=== PATIENT | male | born 1950 | race Caucasian/White ===

== ENCOUNTER 2019-12-27 09:22 | Outpatient (CLI) | payer MEDICARE, OTHER, SELFPAY ==
[2019-12-27 10:04] LABS: Alanine Aminotransferase 29 U/L (4-50); Aspartate Amino Transferase 26 U/L (17-59); Cholesterol 190 mg/dL (0-200); HDL Direct 37 mg/dL; Triglycerides 290 mg/dL (<150)
[2019-12-27 10:15] LABS: LDL Cholesterol Direct 108 mg/dL
== END 2019-12-27 09:23 | disposition home or self-care (01) ==
LOC: ANHLAB 09:26
PROVIDERS: Visit Provider Internal Medicine Cardiovascular Disease
DX: E78.5 Hyperlipidemia, unspecified (principal)
CPT/HCPCS: 36415; 80061; 84450; 84460

== ENCOUNTER 2020-06-16 10:46 | Inpatient (IN) | payer MEDICARE, OTHER, SELFPAY ==
[2020-06-16] VITALS (17 sets, daily range): BP systolic 106–194; BP diastolic 48–100; PULSE 76–148; RESP 18–30; TEMP 35.8–36.7; O2SAT 96–100; BMI 45.0
--- NOTE | 2020-06-16 | ECHO_ITS ---
Patient Info Name: Pierre Blanco Age: 69 years : 1950 Gender: Male Ht: 68 in Wt: 296 lbs BSA: 2.61 m2 HR: 102 bpm BP: 123 / 78 mmHg Heart Rhythm: Tachycardia, Sinus Rhythm Technical Quality: Poor Exam Date: 06/16/2020 4:17 PM Exam Location: [facility] Patient Status: Inpatient Admit Date: 06/16/2020 Staff Ordering Physician: Danya Edmond PA-C Vp Biology: Aminata Ervin RDCS Attending Provider: Danya Edmond PA-C Referring Physician: Feli CAMPBELL; Exam Type: CA echo dop color flow w con Study Info Indications - chest pain PIERRE FAGAN Complete two-dimensional, color flow and Doppler transthoracic echocardiogram is performed with contrast to opacify the left ventricle and to improve the deliniation of the left ventricle endocardial borders. Contrast/Agitated Saline Contrast/Ag. Saline: Definity Amount: 1.00 ml Existing IV Access: Yes IV Access Condition: patent with no signs of infiltration Summary 1. The left ventricle is of normal size and thickness with hyperdynamic left ventricular systolic function and near cavity obliteration during systole. Ejection fraction is 75-80%. Calculated ejection fraction 71%. No focal wall motion abnormalities. Grade 1 diastolic dysfunction is present. 2. No significant valvular heart disease. 3. No pulmonary hypertension, estimated pulmonary arterial systolic pressure is 28 mmHg. 4. Left atrial chamber dimension is moderately enlarged. 5. There is a late peaking in mildly increased LVOT velocity of 2.5 m/sec, corresponding to an intraventricular gradient of 25 mm Hg; this may be due to the patient's hyperdynamic state although a degree of hypertrophic obstructive cardiomyopathy cannot be completely excluded (the septal thickness is not well visualized in this technically difficult study). 6. Sinus tachycardia. 7. Technically difficult study, definity echo contrast used. Left Ventricle Left ventricular chamber dimension is normal. Left ventricular systolic function is hyperdynamic, estimated at >70%. There is no increased left ventricular wall thickness. Left ventricular septal wall motion is normal. The left ventricular diastolic function is grade I diastolic dysfunction. Right Ventricle Right ventricular chamber dimension is normal. Right ventricular systolic function is normal. Left Atria Left atrial chamber dimension is moderately enlarged. Right Atria Right atrial chamber dimension is normal. Aortic Valve The aortic valve is trileaflet. There is mild aortic valve sclerosis. There is no aortic valve stenosis. There is no aortic valve regurgitation. Pulmonic Valve The pulmonic valve is normal. There is no pulmonic valve stenosis. There is no pulmonic regurgitation. Mitral Valve The mitral valve has calcified annulus. There is no mitral valve stenosis. There is no mitral valve regurgitation. Tricuspid Valve The tricuspid valve leaflets are normal. There is no significant tricuspid valve stenosis. There is trace tricuspid valve regurgitation. No pulmonary hypertension, estimated pulmonary arterial systolic pressure is 28 mmHg. Pericardium/Pleural The pericardium appears normal. There is no pericardial effusion. Inferior Vena Cava Normal inferior vena cava with >50% collapse upon inspiration consistent with Empty right atrial pressure, 10 mmHg. Aorta The aortic root size at the sinus of Valsalva is normal.
--- NOTE | ~2020-06-16 | CT_ITS ---
EXAMINATION: CTA chest PE protocol DATE: 06/16/2020 12:27 INDICATION: Left upper chest pain. TECHNIQUE: Computed tomography angiography (CTA) of the chest was performed with 100 mL Omnipaque-350 intravenous contrast timed to evaluate the pulmonary arteries. Coronal maximum intensity projection 3D-reconstructions were created by the technologist. Automated exposure control and iterative reconst ruction technique were employed. The dose-length product was 933.88 mGy-cm. COMPARISON: Chest 2 views 06/16/2020 FINDINGS: The lungs demonstrate mild atelectasis. A calcified left lung nodule and calcified left hil ar and mediastinal lymph nodes are consistent with old granulomatous disease. No pleural effusion. Th e heart size is normal. There are coronary artery calcifications. No pericardial effusion. There is n o pulmonary embolus. There is diffuse hepatic steatosis. There are old healed right rib fractures. IMPRESSION: 1. No pulmonary embolus. Reviewed, dictated and finalized at location A. RONMENTAL HEALTH INSPECTOR IMPRESSION: 1. No pulmonary embolus.
--- NOTE | ~2020-06-16 | XR_ITS ---
EXAMINATION: XR chest 2V DATE: 06/16/2020 11:36 INDICATION: Midsternal chest pain TECHNIQUE: PA and lateral views of the chest are obtained. COMPARISON: 02/05/2015 FINDINGS: The lungs are free of acute opacities. There is no pleural effusion or pneumothorax. The ca rdiomediastinal silhouette is normal. There is mild thoracic spondylosis. Again noted is focal kyphos is at T11-12 with interbody fusion. IMPRESSION: 1. No acute cardiopulmonary abnormality. Reviewed, dictated and finalized at location A. ONAL SHOPPER
--- NOTE | 2020-06-16 10:53 | ECG_ITS ---
Measurements Intervals [place] Rate: 120 P: 26 RI: 161 QRS: 72 QRSD: 88 T: 39 QT: 319 QTc: 452 Interpretive Statements SINUS TACHYCARDIA BASELINE ARTIFACT- I, III, AVR, AVL ABNORMAL ECG Electronically Signed On 06-16-2020 11:18:57 BAGMAN/WOMAN by Juan Manuel Flynn D.O.
[2020-06-16] MEDS: ASPIRIN 81 MG CHEWABLE TABLET 324 MG PO (11:10)
[2020-06-16 11:14] LABS: Basophils Percent Auto 0.1 % (0.2-1.2); Eosinophils Absolute Auto 0.1 K/mm3 (0-0.3); Eosinophils Percent Auto 1.4 % (0-4.4); Hematocrit 45.3 % (42.0-52.0); Hemoglobin 15.2 g/dL (14.0-18.0); Immature Granulocyte Absolute 0.02 K/mm3 (0.00-0.031); Immature Granulocyte Percent A 0.3 % (0-0.5); Lymphocytes Absolute Auto 2.32 K/mm3 (0.9-3.2); Lymphocytes Percent Auto 33.2 % (18.3-44.2); Mean Corpuscular HGB Conc 33.6 g/dl (32-36); Mean Corpuscular Hemoglobin 30.8 pg (26-34); Mean Corpuscular Volume 91.9 fl (80-100); Mean Platelet Volume 9.5 fl (7.4-10.4); Monocytes Absolute Auto 0.4 K/mm3 (0.1-0.6); Monocytes Percent Auto 6.2 % (2.6-8.5); Neutrophils Absolute Auto 4.1 K/mm3 (1.3-6.7); Neutrophils Percent Auto 58.8 % (45.5-73.1); Platelet Count Result 176 k/mm3 (150-375); Red Blood Count 4.93 M/mm3 (4.6-6.20); Red Cell Distribution Width 14.5 % (11.5-14.5)
[2020-06-16 11:25] LABS: Anion Gap 5 mmol/L (8-16); Blood Urea Nitrogen 21 mg/dL (9-20); Calcium 9.5 mg/dL (8.4-10.2); Carbon Dioxide 30 mmol/L (22-30); Chloride 103 mmol/L (98-107); Estimated CRCL calculation 131 ml/min; Estimated Glomerular Filt Rate > 60; Glucose 144 mg/dL (75-110); Potassium 4.2 mmol/L (3.4-5.0); Sodium 138 mmol/L (137-145)
--- NOTE | 2020-06-16 11:25 | ED.CHESTPAIN ---
HPI - Chest Pain General Chief Complaint: Chest Pain Stated Complaint: left shoulder, arm pain Time Seen by Provider: 06/16/20 10:50 Source: patient Mode of arrival: ambulatory Limitations: no limitations History of Present Illness HPI narrative: Patient is a 69-year-old male complaining of chest pain, left chest radiating to left upper extremity, 8 out of 10 earlier, currently at 1 out of 10, described as tightness, started yesterday. Patient denies any shortness of breath, abdominal pain, nausea, vomiting, diaphoresis, fever or chills. Related Data Allergies Allergy/AdvReac Type Severity Reaction Status Date / Time morphine Allergy Unknown vomiting Verified 06/16/20 10:59 Review of Systems Review of Systems: All systems reviewed & are unremarkable except as noted in HPI and below Constitutional: Constitutional: Denies body ache(s), Denies chills, Denies excessive sweating, Denies fatigue, Denies fever(s), Denies headache(s), Denies lethargy, Denies malaise, Denies weakness and Denies weight loss Eyes: Eyes: Denies blurry vision, Denies change in vision and Denies loss of vision ENT: Denies dizziness, Denies ear discharge, Denies headache(s), Denies lip swelling, Denies epistaxis, Denies nasal congestion, Denies neck pain, Denies throat swelling and Denies tongue swelling Cardiovascular: Cardiovascular: Denies diaphoresis, Denies rapid heart rate, Denies edema, Denies irregular heart rhythm, Denies lightheadedness, Denies palpitations, Denies dyspnea and Denies dyspnea on exertion Respiratory: Respiratory: Denies chest congestion, Denies cough, Denies hemoptysis, Denies dyspnea and Denies dyspnea on exertion Gastrointestinal: Gastrointestinal: Denies abdominal pain, Denies melena, Denies hematochezia, Denies diarrhea, Denies nausea, Denies vomiting and Denies hematemesis Musculoskeletal: Musculoskeletal: Denies abnormal gait, Denies deformity, Denies joint swelling, Denies limited range of motion, Denies neck pain and Denies numbness Neurologic: Denies Abnormal speech present, Denies abnormal gait, Denies confusion, Denies dizziness, Denies headache(s), Denies focal weakness, Denies loss of vision, Denies numbness, Denies Other visual disturbances, Denies Sensory deficit (Neuro) and Denies weakness Psychiatric: Psychiatric: Denies confusion, Denies depression, Denies auditory hallucinations, Denies homicidal ideation and Denies suicidal ideation Endocrine: Endocrine: Denies cold intolerance, Denies excessive sweating, Denies fatigue, Denies heat intolerance and Denies palpitations Hematologic/Lymphatic: Hematologic/Lymphatic: Denies easy bleeding and Denies easy bruising Allergic/Immunologic: Allergic/Immunologic: Denies lip swelling, Denies throat swelling and Denies tongue swelling Exam Const: General: cooperative, healthy appearing, comfortable, no acute distress, well developed, alert and awake; No confusion Orientation/consciousness: oriented to person, oriented to place, oriented to time, patient oriented x3 and No confusion Limitations: no limitations HENMT: Head: normal to inspection, normocephalic and atraumatic Ears: hearing grossly normal bilaterally, TM normal on the right and TM normal on the left General nose exam: Normal external nose present, Normal nares present and No nasal discharge present Face and sinus: normal facial exam Mouth: Yes Normal oral and palatal mucosa present, Yes lip normal, Yes tongue normal and Yes oropharynx normal Throat: posterior oropharynx normal, tonsils normal and uvula midline Eyes: General: appearance normal, both eyes and all related structures Pupils: Equal, round and reactive pupils present EOM: EOMs intact bilaterally Neck: Neck: normal visual inspection, full ROM, no lymphadenopathy and no meningeal signs Chest: Chest palpation & inspection: normal inspection of the chest Resp: Effort & Inspection: normal respiratory effort, able to speak in complete sentences, no respiratory
[2020-06-16 11:29] LABS: INR 0.9; Prothrombin Time 12.7 Seconds (11.1-14.7)
[2020-06-16 11:30] LABS: Partial Thromboplastin Time 29.4 SECONDS (22.3-36.8)
[2020-06-16 11:43] LABS: Troponin I 0.057 ng/mL (0.000-0.034)
[2020-06-16] MEDS: METOPROLOL TARTRATE INJ 5 MG/5 ML VIAL IV PUSH (11:43)
--- NOTE | 2020-06-16 12:02 | PC.NURSE ---
called lab to add on d-dimer - spoke with jazmin
[2020-06-16] MEDS: ENOXAPARIN 100 MG/ML SYRINGE SUB-Q (13:23)
[2020-06-16] MEDS: ENOXAPARIN 30 MG/0.3 ML SYRINGE SUB-Q (13:23)
--- NOTE | 2020-06-16 14:21 | ADMGEN ---
This patient, Pierre Blanco, was admitted to IMU Room 209-. Patient/family oriented to hospital policies and general routines including ID bracelet, bed and alarms, visiting hours, pain management, procedures, bathroom and other care routines, personal items, smoking policy, room service/diet, and visiting hours. Information on how to activate the Rapid Response Team has been discussed. Patient/Family are encouraged to report perceived risks to care and to ask questions if they do not understand what they are told or what they should do.
[2020-06-16] MEDS: LACTATED RINGERS 1,000 ML 125 ML IV CONT (14:40)
[2020-06-16 14:42] LABS: Troponin I 0.095 ng/mL (0.000-0.034)
--- NOTE | 2020-06-16 14:57 | PM.CNCAR ---
Assessment and Plan Assessment and plan (1) Non-ST elevation [place] (NSTEMI): Code(s): I21.4 - Non-ST elevation (NSTEMI) myocardial infarction Status: Acute Assessment and Plan: Probable ACS and non-STEMI, with chest and arm pain intermittently since yesterday and elevated troponins. On the other hand it could be that the hypertension and sinus tachycardia provoked myocardial ischemia and a troponin spill. EKG has not shown any ischemic changes. In any case, since he may have ACS, I recommend cardiac catheterization tomorrow. He did receive 1 dose of Lovenox. Would continue aspirin. If more chest discomfort than heparin drip. Continue p.o. metoprolol etc. Repeat EKG looking for ischemic changes. (2) Coronary artery disease: Code(s): I25.10 - Atherosclerotic heart disease of [place] coronary artery without angina pectoris Status: Acute Assessment and Plan: His had diffuse CAD on his last cardiac catheterization in 2014, and history of remote diagonal stent. (3) Essential hypertension: Code(s): I10 - Essential (primary) hypertension Status: Acute Assessment and Plan: Was running high this morning (4) Hyperlipidemia: Code(s): E78.5 - Hyperlipidemia, unspecified Status: Acute Assessment and Plan: Taking rosuvastatin Will check lipids (5) Sinus tachycardia: Code(s): R00.0 - Tachycardia, unspecified Status: Acute Assessment and Plan: Sinus tachycardia noted earlier today, improved, unsure if secondary to myocardial stress versus anxiety. History of Present Illness History of Present Illness Consult date/time: 06/16/20 14:57 Consult reason: chest pain Reason For Visit: NSTEMI Narrative: 06/16/2020 Mr. Pierre Blanco is a 69-year-old male whom we were asked to see at the request of the hospitalist for advice and opinion regarding his chest discomfort in consultation. Mr. leonidas hidalgo is usually followed by Dr. Lorenzana for CAD. He has a history of a diagonal stent placed elsewhere several years ago and some diffuse coronary disease, with last cardiac catheterization in 2014. His last stress test in 2016 showed no ischemia and he was last seen in December 2019, stable. He has some chronic FAGAN. Yesterday started having some pain in his left arm from the shoulder to his hand off and on associated with discomfort in left upper chest area which is ?just to hurt and ache.? It would wax and wane all day and he just did not feel good. He was able to sleep okay but this morning he was having worse pain in the left arm and left upper chest and his heart rate and blood pressure were elevated. The pain would last 2 minutes then fade away but never went away completely. There was no associated nausea vomiting or shortness of breath. He did not try any nitroglycerin. He came to the emergency room blood pressure of 194/100 and a pulse of 129. He was given some IV metoprolol and Lovenox and has been pain-free since. He has history of hypertension and hyperlipidemia. No bleeding problems our anticipated surgery. He has had several cardiac catheterizations Review of Systems Constitutional: Constitutional: Denies lethargy ENT: Denies epistaxis Cardiovascular: Cardiovascular: Reports chest pain, Denies pedal edema and Reports palpitations Respiratory: Respiratory: Reports cough (Chronic cough, nonproductive) and Reports dyspnea on exertion Gastrointestinal: Gastrointestinal: Denies abdominal pain and Denies hematochezia Genitourinary: Genitourinary: Denies hematuria Musculoskeletal: Musculoskeletal: Reports back pain Integumentary/Breasts: Skin/Breast: Denies rash Neurologic: Reports system reviewed and no additional complaints, except as docu
--- NOTE | 2020-06-16 15:06 | PM.IMHP ---
H&P: HPI History of Present Illness Date/Time: 06/16/20 15:06 Chief Complaint: Chest pain Narrative: Pierre Blanco is a 69 year old male with PMH significant for coronary artery disease s/p [place] [address] Riddle, hypertension, hyperlipidemia, recent and uncomplicated COVID-19 infection 04/06/20, and GERD who presented to the emergency department this morning via private vehicle for the evaluation of chest pain. Chest pain started gradually yesterday morning and was persistent throughout the day with episodes of discomfort rated 2/10 and lasting 5-10 minutes without complete resolution between episodes which he further described as an ebb and flow . Pain was not brought on with exertion as he notes he not was pretty inactive and sitting around yesterday. Pain was located at the left chest with radiation into the left arm. He describes it as just hurting with some intermittent sharp pains. He reported no radiation to the jaw or back and no pleuritic component. He did not take nitroglycerin because he was unsure if it was cardiac. He woke up this morning and the pain was sill present and worse at 4-5/10 with pulse reading of 138 and elevated BP reading which prompted him to proceed to the emergency department. He reports he did not have any palpitations. He denies associated shortness of breath, dizziness and lightheadedness. He denies PND and orthopnea. He reports that he holds water and tends to have a bit of lower extremity edema but does not feel this is any worse than usual. He notes chronic dyspnea on exertion with limited exercise tolerance, deconditioning, and weight gain which he attributes to his good appetite. He notes a chronic, dry cough and follows with pulmonology. He denies abdominal pain, nausea, and vomiting. Initial workup in the emergency department included EKG with sinus tachycardia, QTC [address]/T changes, D-Dimer 0.7, troponin 0.057 at 1 hr and 0.095 at 3 hr, CXR unremarkable and chest CTA without pulmonary embolism, CBC unremarkable. Review of Systems Review of Systems: Narrative: Constitutional: Denies fever, chills, fatigue, and appetite change. Reports weight gain which he attributes to diet. Eyes: Reports hx of cataract removal and wears corrective lenses. Denies vision change. No additional eye complaints. ENT: Denies change in hearing, nasal congestion, dysphagia, odynophagia, and sore throat. Cardiovascular: As above. Respiratory: As above. Denies hemoptysis. Gastrointestinal: Denies abdominal pain, nausea, and vomiting. Denies melena and hematochezia. Genitourinary: Denies dysuria, frequency, urgency, and hesitancy. Denies hematuria. Musculoskeletal: Reports chronic low back pain. Skin: Denies lesions and wounds. Neurologic: Denies focal weakness, paresthesias, confusion, and speech change. Denies headaches. Psychiatric: Denies mood change. Hematologic: Denies easy bruising and bleeding. All systems reviewed & are unremarkable except as noted in HPI and below PMFSH Past Medical History Medical History (Updated 06/16/20 @ 16:24 by Danya Edmond PA-C) Coronary artery disease History of diagonal stent [place] [address] Riddle Essential hypertension GERD (gastroesophageal reflux disease) Gout Hyperlipidemia SHELBIE (obstructive sleep apnea) Surgical History Surgical History (Updated 06/16/20 @ 15:49 by Danya Edmond PA-C) Hx of tonsillectomy Plantar fasciitis Previous back surgery Family History Family History (Updated 06/16/20 @ 15:50 by Danya Edmond PA-C) Father Heart disease of 3rd heart attack age 56 Mother Heart disease History of valve replacement Cerebral hemorrhage Sounds like she might of had an intracranial hemorrhage, related to warfarin? Grandparent Acute myocardial infarction Grandparent Diabetes mellitus Grandparent Acute myocardial infarction Social History Social History (Updated
--- NOTE | 2020-06-16 15:54 | ECG_ITS ---
Measurements Intervals [place] Rate: 104 P: 14 [place]: 155 QRS: 61 QRSD: 87 T: 25 QT: 355 QTc: 469 Interpretive Statements SINUS TACHYCARDIA BORDERLINE ST ABNORMALITY- ANTEROLATERAL LEADS BASELINE ARTIFACT- I, III BORDERLINE ECG Electronically Signed On 06-16-2020 16:27:26 LIVESTOCK NUTRITIONIST by Juan Manuel Flynn D.O.
[2020-06-16] MEDS: PERFLUTREN LIPID MICROSPHERES 1.5 ML VIAL DILUTED TO 10 ML TOTAL VOLUME IV PUSH (16:34)
[2020-06-16] MEDS: ROSUVASTATIN 10 MG TABLET 40 MG PO (20:05)
[2020-06-16] MEDS: METOPROLOL TARTRATE 50 MG TAB 100 MG PO (20:06)
[2020-06-16] MEDS: PANTOPRAZOLE 40 MG TABLET PO (20:06)
[2020-06-16] MEDS: MONTELUKAST SODIUM 10 MG TABLET PO (20:06)
[2020-06-16 20:34] LABS: Troponin I 0.275 ng/mL (0.000-0.034)
[2020-06-17] VITALS (33 sets, daily range): BP systolic 97–158; BP diastolic 42–87; PULSE 64–116; RESP 10–20; TEMP 36.1–36.7; O2SAT 93–98
[2020-06-17 05:25] LABS: Basophils Percent Auto 0.3 % (0.2-1.2); Eosinophils Absolute Auto 0.1 K/mm3 (0-0.3); Eosinophils Percent Auto 2.2 % (0-4.4); Hematocrit 40.8 % (42.0-52.0); Hemoglobin 13.6 g/dL (14.0-18.0); Immature Granulocyte Absolute 0.01 K/mm3 (0.00-0.031); Immature Granulocyte Percent A 0.2 % (0-0.5); Lymphocytes Absolute Auto 2.56 K/mm3 (0.9-3.2); Lymphocytes Percent Auto 39.9 % (18.3-44.2); Mean Corpuscular HGB Conc 33.3 g/dl (32-36); Mean Corpuscular Hemoglobin 30.4 pg (26-34); Mean Corpuscular Volume 91.3 fl (80-100); Mean Platelet Volume 10.3 fl (7.4-10.4); Monocytes Absolute Auto 0.5 K/mm3 (0.1-0.6); Monocytes Percent Auto 7.8 % (2.6-8.5); Neutrophils Absolute Auto 3.2 K/mm3 (1.3-6.7); Neutrophils Percent Auto 49.6 % (45.5-73.1); Platelet Count Result 169 k/mm3 (150-375); Red Blood Count 4.47 M/mm3 (4.6-6.20); Red Cell Distribution Width 14.5 % (11.5-14.5); White Blood Count 6.4 K/mm3 (4.5-10.0)
[2020-06-17 05:41] LABS: Alanine Aminotransferase 33 U/L (4-50); Albumin Level 3.8 g/dL (3.5-5.1); Alkaline Phosphatase 61 U/L (38-126); Anion Gap 5 mmol/L (8-16); Aspartate Amino Transferase 33 U/L (17-59); Bilirubin,Total 0.7 mg/dL (0.2-1.3); Blood Urea Nitrogen 21 mg/dL (9-20); Calcium 8.7 mg/dL (8.4-10.2); Carbon Dioxide 28 mmol/L (22-30); Chloride 104 mmol/L (98-107); Cholesterol 156 mg/dL (0-200); Estimated CRCL calculation 90 ml/min; Estimated Glomerular Filt Rate > 60; Glucose 102 mg/dL (75-110); Magnesium 1.7 mg/dL (1.6-2.3); Sodium 137 mmol/L (137-145)
[2020-06-17 05:48] LABS: Potassium 4.1 mmol/L (3.4-5.0)
[2020-06-17] MEDS: HYDROcodone/acetaminophen (*CRX) 7.5-325 MG TABLET 1 TAB PO ×2 (06:20→12:23)
--- NOTE | 2020-06-17 06:32 | WPDMODSED ---
Moderate Sedation Note-Pt Data Patient Data Diagnosis: chest pain, suspected acute coronary syndrome Present Complaint: intermittent episodes of left chest shoulder and arm pain Procedure to be performed/Plan: left heart catheterization Allergies Allergy/AdvReac Type Severity Reaction Status Date / Time morphine Allergy Mild vomiting Verified 06/16/20 14:02 Home Medications Medication Instructions Recorded Confirmed Type albuterol sulfate [ProAir See Rx Instructions .ROUTE 06/16/20 06/16/20 History RespiClick] .COMPLEX PRN allopurinol 300 mg PO DAILY 06/16/20 06/16/20 History apple cider vinegar 500 mg PO DAILY 06/16/20 06/16/20 History ascorbate sodium (vitamin C) 1,000 mg PO DAILY 06/16/20 06/16/20 History aspirin [Aspir-81] 81 mg PO Q12H 06/16/20 06/16/20 History benzonatate 100 mg PO TID PRN 06/16/20 06/16/20 History fluticasone propionate [Flonase] 2 spray INTRANASAL BID PRN 06/16/20 06/16/20 History furosemide 20 mg PO DAILY 06/16/20 06/16/20 History isosorbide mononitrate 60 mg PO DAILY 06/16/20 06/16/20 History losartan 50 mg PO Q12H 06/16/20 06/16/20 History metoprolol tartrate 100 mg PO Q12H 06/16/20 06/16/20 History montelukast 10 mg PO HS 06/16/20 06/16/20 History zmtmbzru-npc-unhvc-vit K-lycop 1 tablet PO DAILY 06/16/20 06/16/20 History [Men's Multivitamin] nitroglycerin See Rx Instructions .ROUTE .COMPLEX 06/16/20 06/16/20 History omega-3 fatty acids-vitamin E 1 cap PO DAILY 06/16/20 06/16/20 History [Fish Oil] omeprazole 20 mg PO HS 06/16/20 06/16/20 History rosuvastatin 40 mg PO HS 06/16/20 06/16/20 History Current Medications: Active Medications Hydrocodone Bitart/Acetaminophen (Hydrocodone/Acetaminophen (*Crx) 7.5-325 Mg Tablet) 1 tab PO Q6H PRN PRN Reason: Pain Rated 7-10 Last Admin: 06/17/20 06:20 Dose: 1 tab Documented by: Albuterol (Albuterol Sulfate Neb 2.5 Mg/0.5 Ml Inh) 2.5 mg INHALATION Q4HRT PRN PRN Reason: Shortness Of Breath Allopurinol (Allopurinol 300 Mg Tablet) 300 mg PO DAILY [facility] Aspirin (Aspirin 81 Mg Chewable Tablet) 81 mg PO DAILY@0800 [facility] Fluticasone Propionate (Fluticasone Propionate 0.05% Na Spr 16 Gm Btl (*Bkc)) 2 spray NASAL BID PRN PRN Reason: Congestion Furosemide (Furosemide 20 Mg Tablet) 20 mg PO DAILY [facility] Sodium Chloride (Normal Saline Iv) 500 mls @ 100 mls/hr IV CONT .Q5H [facility] Isosorbide Mononitrate (Isosorbide Mononitrate 60 Mg Tab.Er.24h) 60 mg PO DAILY [facility] Losartan Potassium (Losartan Potassium 50 Mg Tablet) 50 mg PO Q12HR [facility] Metoprolol Tartrate (Metoprolol Tartrate 50 Mg Tab) 100 mg PO Q12HR [facility] Last Admin: 06/16/20 20:06 Dose: 100 mg Documented by: Montelukast Sodium (Montelukast Sodium 10 Mg Tablet) 10 mg PO [facility] Last Admin: 06/16/20 20:06 Dose: 10 mg Documented by: Nitroglycerin (Nitroglycerin Sl 0.4 Mg Tablet) 0.4 mg SUBLINGUAL Q5MIN PRN PRN Reason: Chest Pain Pantoprazole Sodium (Pantoprazole 40 Mg Tablet) 40 mg PO [facility] Last Admin: 06/16/20 20:06 Dose: 40 mg Documented by: Rosuvastatin Calcium (Rosuvastatin 10 Mg Tablet) 40 mg PO [facility] Last Admin: 06/16/20 20:05 Dose: 40 mg Documented by: Sedation/Anesthesia: No previous sedation/anesthesia problems (including family history). [facility] Past Medical History Medical History (Updated 06/16/20 @ 16:24 by Danya Edmond PA-C) Coronary artery disease History of diagonal stent [place] [address] Riddle Essential hypertension GERD (gastroesophageal reflux disease) Gout Hyperlipidemia SHELBIE (obstructive sleep apnea) Surgical History Surgical History (Updated 06/16/20 @ 15:49 by Danya Edmond PA-C) Hx of tonsillectomy Plantar fasciitis Previous back surgery Family History Family History (Updated 06/16/20 @ 15:50 by Danya Edmond PAChip) Father Heart disease of 3rd heart attack age 56 Mother Heart disease History of valve replacement Cerebral hemorrhage Sounds like she might of had an intracr
--- NOTE | 2020-06-17 07:34 | ECG_ITS ---
Measurements Intervals [place] Rate: 67 P: 38 [place]: 176 QRS: 64 QRSD: 85 T: 64 QT: 438 QTc: 465 Interpretive Statements SINUS RHYTHM NORMAL ECG Electronically Signed On 06-17-2020 11:08:05 MARKET RISK MANAGER by Juan Manuel Flynn D.O.
--- NOTE | 2020-06-17 07:39 | WPDCARDPROC ---
Cardiac Cath Procedure Note Date of procedure:: 06/17/20 Performing physician:: Sonu Mclean MD Indication:: coronary artery disease with previous PCI to diagonal acute coronary syndrome Brief clinical history:: this is a 69-year-old man who has coronary artery disease and is morbidly obese. He presents to the hospital with intermittent chest pain and modest troponin elevation compatible with acute coronary syndrome. Electrocardiogram does not show any significant changes. In 2006 he received a stent to the diagonal branch of his LAD. In this setting a follow-up angiogram has been recommended. Procedure Procedure performed:: Left ventriculogram coronary angiogram PCI with drug-eluting stent to circumflex/OM 1 Sedation/Medication given:: fentanyl 50 mg Versed 2 mg case start time 7:03 a.m. case end time 7:33 a.m. sedation provided by Toshia Elizabeth RN, trained observer Access site:: right femoral artery Estimated blood loss:: 15-20 cc Procedure note:: patient was brought to the cardiac catheterization in the postabsorptive state the right femoral triangle was prepped and draped in the usual fashion. Anesthesia was provided with 1% lidocaine and using the modified Seldinger technique the right femoral artery was punctured and a 5 [place] vascular sheath was placed. After this I advanced a 5 [place] angled pigtail catheter to left ventricle were left-sided hemodynamics were demonstrated and left ventriculogram was injected in the ROBERTSON projection. After this the 5 [place] FL4 catheter was used to engage inject the left coronary artery and then a 5 [place] JR4 catheter was used to engage inject the right coronary artery. Following this the cineangiograms were reviewed and PCI of the circumflex/ OM1 was recommended and carried out as detailed below. Prior to PCI 5 [place] sheath was changed over a guidewire for a 6 [place] device. The patient was systemically anticoagulated with apixaban for this intervention he received 600 mg of clopidogrel as well as 3-5 mg of aspirin prior to PCI as well. Following the procedure the sheath was sutured into position patient was taken to the holding area for recovery and sheath removal. 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 Findings:: Hemodynamics: Central aortic pressure is 124/62 left ventricle 124/12 end-diastolic pressure 18 there is no systolic gradient on pullback across the aortic valve. Left ventricle: The LV is normal in size and exhibits concentric hypertrophy contractility is nicely preserved in all segments the global ejection fraction I would visually estimated to be 60-65%. The left main coronary artery is short but nicely patent the LAD is a moderate caliber artery extending down to around the apex the visible stent material in the diagonal branch of the LAD is easily seen and is widely patent. There is some stenosis in the LAD immediately after the diagonal branch takes its origin it is eccentric and represents probably 50-60% narrowing. Angiographically it is unchanged in comparison to 2016 circumflex is a moderate to large caliber artery giving rise to a very large 1st OM branch and then a small diffusely diseased posterior branch leading into a small 2nd OM. There is a high-grade stenosis of 90% in the large 1st OM branch with mild disease leading into this for branch in the trunk of the circumflex and for a significant distance distal to the high-grade stenosis. The distal AV groove portion leading into the distal OM branch is a diffusely diseased and has distal 80% stenosis. This is angiographically not significantly containing compared to 2016 but the high-grade lesion described above is new. Right coronary artery is a large caliber vessel and dominant to the posterior circulation there is minimal luminal irregularities noted in the RCA but no significant disease intervention: The left coronary ezio
[2020-06-17] MEDS: SODIUM CHLORIDE 0.9% IV 1,000 ML 125 ML IV CONT (13:35)
--- NOTE | 2020-06-17 14:02 | PM.IMPN ---
Progress Note: A&P Assessment and Plan (1) Non-ST elevation [place] (NSTEMI): Code(s): I21.4 - Non-ST elevation (NSTEMI) myocardial infarction Status: Acute Assessment and Plan: Clinical presentation consistent with NSTEMI given symptoms concerning for ACS, elevated troponin, and no significant ST change on EKG. He underwent cardiac catheterization on 06/17/[address] Mclean which showed high-grade stenosis of the circumflex s/p PCI with SASKIA to the 1st OM branch of the circumflex, diffuse disease in the distal circumflex and mid LAD - unchanged from 2015, and patency of the diagonal stent from 2006. Cardiology is following and input is greatly appreciated Continue ASA and plavix Continue metoprolol Continue nitroglycerin as needed (2) Coronary artery disease: Code(s): I25.10 - Atherosclerotic heart disease of [place] coronary artery without angina pectoris Status: Chronic Assessment and Plan: With hx of diagonal stent [place] [address] Riddle and now s/p SASKIA to the 1st OM branch of the circumflex by Dr. Mclean 06/17/20. Cardiology is following and input is greatly appreciated. Continue ASA and plavix Continue metoprolol Continue nitroglycerin as needed Continue rosuvastatin Continue isosorbide mononitrate (3) Essential hypertension: Code(s): I10 - Essential (primary) hypertension Status: Acute Assessment and Plan: The patient noted BP elevation on admission. BP has improved significantly with most recent BP of 119/68. Continue losartan Continue metoprolol Continue to monitor. Appreciate cardiology input. (4) Hyperlipidemia: Code(s): E78.5 - Hyperlipidemia, unspecified Status: Acute Assessment and Plan: LDL 108 and HDL 37 on labs 12/24. LFTs are normal. Continue rosuvastatin 40mg PO QD (5) SHELBIE (obstructive sleep apnea): Code(s): G47.33 - Obstructive sleep apnea (adult) (pediatric) Status: Chronic Assessment and Plan: Continue CPAP titrated to home settings while inpatient. (6) Gout: Code(s): M10.9 - Gout, unspecified Status: Chronic Assessment and Plan: Chronic with no acute issues. Continue allopurinol (7) Sinus tachycardia: Code(s): R00.0 - Tachycardia, unspecified Status: Acute Assessment and Plan: Noted on EKG on arrival. TSH and electrolytes are normal. HR has improved significantly and is in the 60-70s. Continue metoprolol (8) Elevated glucose level: Code(s): R73.09 - Other abnormal glucose Status: Acute Assessment and Plan: Glucose is 144. Hemoglobin A1c is pending. (9) Dyspnea on exertion: Code(s): R06.00 - Dyspnea, unspecified Status: Chronic Assessment and Plan: Chronic and likely secondary to deconditioning and obesity. He appears euvolemic. Echocardiogram performed 06/16/20 demonstrated hyperdynamic left ventricular systolic function with EF 75-80% with no focal wall motion abnormalities and grade I diastolic dysfunction. He had no significant valvular dysfunction. He did have possible hypertrophic obstructive cardiomyopathy given echo findings. (10) Hypertrophic cardiomyopathy: Code(s): I42.2 - Other hypertrophic cardiomyopathy Status: Acute Assessment and Plan: Echocardiogram demonstrated late peaking in mildly increased LVOT velocity of 2.5m/sec corresponding to intraventricular gradient of 25 mmHg which could be due to hypertrophic obstructive cardiomyopathy vs hyperdynamic state. Cardiology is following with management deferred to cardiology Continue metoprolol tartrate Subjective Date/time seen: 06/17/20 14:02 Mr. Blanco is a 69 y.o. male with PMH significant for coronary artery disease s/p [place] [address] Riddle, hypertension, hyperlipidemia, recent and uncomplicated COVID-19 infection 04/06/20, and GERD who is seen in
[2020-06-17 15:23] LABS: Hemoglobin A1C 5.9 % (<5.7)
[2020-06-17] MEDS: METOPROLOL TARTRATE 50 MG TAB 100 MG PO (20:35)
[2020-06-17] MEDS: ROSUVASTATIN 10 MG TABLET 40 MG PO (20:36)
[2020-06-17] MEDS: PANTOPRAZOLE 40 MG TABLET PO (20:36)
[2020-06-17] MEDS: MONTELUKAST SODIUM 10 MG TABLET PO (20:36)
[2020-06-18] VITALS (11 sets, daily range): BP systolic 100–122; BP diastolic 49–64; PULSE 62–79; RESP 16–18; TEMP 36.1–36.6; O2SAT 95–100
--- NOTE | 2020-06-18 05:11 | ECG_ITS ---
Measurements Intervals [place] Rate: 61 P: 19 DC: 175 QRS: 55 QRSD: 86 T: 44 QT: 435 QTc: 439 Interpretive Statements SINUS RHYTHM NORMAL ECG Electronically Signed On 06-18-2020 10:10:18 [employer] by Juan Manuel Flynn D.O.
[2020-06-18 05:19] LABS: Basophils Percent Auto 0.2 % (0.2-1.2); Eosinophils Absolute Auto 0.1 K/mm3 (0-0.3); Eosinophils Percent Auto 1.9 % (0-4.4); Hematocrit 39.7 % (42.0-52.0); Hemoglobin 13.1 g/dL (14.0-18.0); Immature Granulocyte Absolute 0.02 K/mm3 (0.00-0.031); Immature Granulocyte Percent A 0.3 % (0-0.5); Lymphocytes Absolute Auto 1.61 K/mm3 (0.9-3.2); Lymphocytes Percent Auto 25.4 % (18.3-44.2); Mean Corpuscular Hemoglobin 30.4 pg (26-34); Mean Corpuscular Volume 92.1 fl (80-100); Mean Platelet Volume 9.9 fl (7.4-10.4); Monocytes Absolute Auto 0.5 K/mm3 (0.1-0.6); Monocytes Percent Auto 7.1 % (2.6-8.5); Neutrophils Absolute Auto 4.1 K/mm3 (1.3-6.7); Neutrophils Percent Auto 65.1 % (45.5-73.1); Platelet Count Result 133 k/mm3 (150-375); Red Blood Count 4.31 M/mm3 (4.6-6.20); Red Cell Distribution Width 14.2 % (11.5-14.5); White Blood Count 6.3 K/mm3 (4.5-10.0)
[2020-06-18 05:34] LABS: Anion Gap 3 mmol/L (8-16); Blood Urea Nitrogen 17 mg/dL (9-20); Calcium 8.3 mg/dL (8.4-10.2); Carbon Dioxide 32 mmol/L (22-30); Chloride 104 mmol/L (98-107); Estimated CRCL calculation 103 ml/min; Estimated Glomerular Filt Rate > 60; Glucose 105 mg/dL (75-110); Magnesium 1.8 mg/dL (1.6-2.3); Potassium 3.9 mmol/L (3.4-5.0); Sodium 139 mmol/L (137-145)
[2020-06-18] MEDS: CLOPIDOGREL BISULFATE 75 MG TABLET PO (08:31)
[2020-06-18] MEDS: FUROSEMIDE 20 MG TABLET PO (08:31)
[2020-06-18] MEDS: METOPROLOL TARTRATE 50 MG TAB 100 MG PO (08:31)
[2020-06-18] MEDS: allopurinoL 300 MG TABLET PO (08:31)
[2020-06-18] MEDS: ASPIRIN 81 MG CHEWABLE TABLET PO (08:31)
--- NOTE | 2020-06-18 11:12 | PM.PNCARD ---
Progress Note: A&P Additional Plan 69-year-old man with: Acute coronary syndrome treated effectively with drug-eluting stent to the target lesion in the mid circumflex as described above. He does have some other diffusely diseased vessels which angiographically look no different than in 2016. Patient appears to be a good candidate for discharge today. Follow-up with Dr. Lorenzana in our office is already scheduled. Sonu Mclean MD [facility] Subjective Date/time seen: Date of service: 06/18/20 11:12 Interval history: Follow-up visit in this 69-year-old man with: Coronary artery disease, remote stenting of the diagonal branch of the LAD presenting with accelerating angina/acute coronary syndrome. Found to have a new high-grade stenosis in the mid circumflex into OM1 yesterday and underwent successful revascularization with another drug-eluting stent as detailed in the operative note. Patient is asymptomatic this morning seated in the chair he has been up ambulating with no symptoms appears to be a good candidate for discharge. Discussion with the patient at some length about the importance of dual anti-platelet therapy and adherence to that. Exam Const: General: comfortable and no acute distress Other: Morbidly obese gentleman seated in the chair in no distress of any kind HENMT: Mouth: Yes moist mucous membranes Eyes: Sclera: sclerae normal Pupils: Equal, round and reactive pupils present Neck: Neck: supple and no JVD Other: Difficult to assess venous distention given his body habitus Resp: Effort & Inspection: normal respiratory effort Auscultation: clear to auscultation bilaterally Other: Breath sounds distant but otherwise clear Cardio: Rate: regular rate Rhythm: regular rhythm Other: PMI cannot be palpated no cardiac murmur GI: GI Palp: Yes Soft to palpation Auscultation: normal bowel sounds Skin: General skin exam: normal color Neuro: Cognition (Neuro): normal cognition Extrem: General: normal to inspection Objective Data Vital Signs Vital Signs: Vital Signs - 24 hr 06/17/20 11:25 06/17/20 11:40 06/17/20 11:55 Temperature Pulse Rate 70 67 66 Respiratory Rate 20 16 19 Blood Pressure 108/61 99/66 L 133/60 Pulse Oximetry 94 93 95 06/17/20 12:10 06/17/20 12:40 06/17/20 14:00 Temperature 36.6 C Pulse Rate 64 75 84 Respiratory Rate 20 20 Blood Pressure 119/68 130/74 Pulse Oximetry 97 96 06/17/20 15:10 06/17/20 16:00 06/17/20 16:10 Temperature 36.6 C 36.6 C Pulse Rate 80 79 77 Respiratory Rate 18 20 18 Blood Pressure 112/68 121/58 L Pulse Oximetry 95 97 97 06/17/20 16:39 06/17/20 17:10 06/17/20 18:00 Temperature 36.6 C 36.6 C Pulse Rate 79 100 116 H Respiratory Rate 20 18 Blood Pressure 121/58 L 158/87 H Pulse Oximetry 97 98 06/17/20 20:00 06/17/20 20:09 06/17/20 20:35 Temperature 36.1 C L Pulse Rate 90 101 H 94 Respiratory Rate 18 Blood Pressure 141/83 H Pulse Oximetry 95 06/17/20 22:00 06/18/20 00:00 06/18/20 02:00 Temperature 36.2 C L Pulse Rate 72 72 72 Respiratory Rate 18 Blood Pressure 120/51 L Pulse Oximetry 95 06/18/20 03:50 06/18/20 04:00 06/18/20 05:19 Temperature 36.1 C L Pulse Rate 76 79 79 Respiratory Rate 18 18 Blood Pressure 122/53 L 120/54 L Pulse Oximetry 95 96 06/18/20 06:00 06/18/20 08:00 06/18/20 08:11 Temperature 36.5 C Pulse Rate 75 72 79 Respiratory Rate 16 Blood Pressure 100/49 L Pulse Oximetry 100 06/18/20 10:00 Temperature Pulse Rate 64 Respiratory Rate Blood Pressure Pulse Oximetry Intake/Output Intake/Output: Intake & Output 06/15/20 06/16/20 06/17/20 06/18/20 23:59 23:59 23:59 23:59 Intake Total 785.6 2220 880 Output Total 400 325 400 Balance 385.6 1895 480 Meds/Results Medications: Active Medications Generic Name Dose Route Start Last Admin Trade Name Freq PRN Reason Stop Dose Admin Hydrocodone Bitart/Acetaminophen 1 tab 06/16/20 1
--- NOTE | 2020-06-18 13:16 | PM.DS ---
DS: Admitting Diagnosis Admitting Diagnosis Admitting Diagnosis: NSTEMI DS: Discharge Diagnosis Discharge Diagnosis (1) Non-ST elevation [place] (NSTEMI): Code(s): I21.4 - Non-ST elevation (NSTEMI) myocardial infarction Status: Acute Assessment and Plan: Discharge Summary (Date of service 06/18/20): Mr. Blanco is a 69 year old male with PMH significant for coronary artery disease s/[place] [address] Riddle, hypertension, hyperlipidemia, recent and uncomplicated COVID-19 infection 04/06/20, and GERD who presented to the emergency department this morning via private vehicle on 06/16/20 for the evaluation of chest pain. Chest pain started gradually 1 day prior to arrival and was rather constant, with brief periods of mild relief, and located at the left chest with radiation into the left arm. He described the pain as just hurting and aching . He did not take nitroglycerin prior to presentation to the ED because he was unsure if it was cardiac. He woke up the following morning and the pain was sill present and worse at 4-5/10 with associated tachycardia and hypertension, prompting him to seek evaluation in the ED. Initial workup in the emergency department included EKG with sinus tachycardia, QTC [address]/T changes, D-Dimer 0.7, troponin 0.057 at 1 hr and 0.095 at 3 hr, CXR unremarkable and chest CTA without pulmonary embolism, CBC unremarkable. The ER provider consulted cardiology and he was treated with ASA, nitroglycerin, and therapeutic lovenox for NSTEMI and admitted to the hospitalist service with cardiology consultation. He underwent cardiac catheterization on 06/17/[address] Mclean which showed high-grade stenosis of the circumflex, disease in the distal circumflex and mid LAD - unchanged from 2015, and patency of the diagonal stent from 2006. Percutaneous coronary intervention was performed with drug eluting stent to the mid circumflex. Plavix was initiated and ASA was continued as well as metoprolol. He had no further chest pain following intervention. He was evaluated by cardiology and he was felt stable for discharge. He will follow-up with Dr. Lorenzana as scheduled outpatient. He was discharged in hemodynamically stable condition on the afternoon of 06/18/20. Worrisome signs and symptoms which would warrant return to the emergency department were discussed and he verbalized understanding. (2) Coronary artery disease: Code(s): I25.10 - Atherosclerotic heart disease of [place] coronary artery without angina pectoris Status: Chronic Assessment and Plan: With hx of diagonal stent [place] [address] Riddle and now s/p SASKIA to the 1st OM branch of the circumflex by Dr. Mclean 06/17/20. ASA, plavix, metoprolol, rosuvastatin, and nitroglycerin as needed were continued at discharge. (3) Essential hypertension: Code(s): I10 - Essential (primary) hypertension Status: Acute Assessment and Plan: The patient noted BP elevation on admission. BP improved significantly with some soft readings so losartan was decreased to 50mg QD and imdur was discontinued per cardiology recommendations. He was advised to monitor BP and keep a BP log which he should take to his follow-up appointment with cardiology. (4) Hyperlipidemia: Code(s): E78.5 - Hyperlipidemia, unspecified Status: Acute Assessment and Plan: LDL 108 and HDL 37 on labs 12/24. LFTs are normal. Rosuvastatin was continued. (5) SHELBIE (obstructive sleep apnea): Code(s): G47.33 - Obstructive sleep apnea (adult) (pediatric) Status: Chronic Assessment and Plan: CPAP titrated to home settings was available while inpatient and he was encouraged to use this at home. No evidence of pulmonary hypertension on echocardiogram. (6) Gout: Code(s): M10.9 - Gout, unspecified Status: Chronic Assessment and Plan: Chronic with no acute issues. Allopurinol was continued. (7) Sinus
== END 2020-06-18 14:40 | disposition home or self-care (01) | DRG 247 ==
LOC: ANHED 13:19 → ANHIMU 13:46
PROVIDERS: Physician Assistant; Specialist; Admitting Provider Internal Medicine; Emergency Provider Emergency Medicine; PCP Family Medicine; Visit Provider Internal Medicine
PROC: 4A023N7 Measurement of Cardiac Sampling and Pressure, Left Heart, Percutaneous Approach (ICD-10-PCS; CPT 93452; principal; 2020-06-17 08:30)
PROC: 027034Z Dilation of Coronary Artery, One Artery with Drug-eluting Intraluminal Device, Percutaneous Approach (ICD-10-PCS; CPT 92928; 2020-06-17 08:30)
DX: I21.4 Non-ST elevation (NSTEMI) myocardial infarction (principal); Z68.42 Body mass index [BMI] 45.0-49.9, adult; I42.2 Other hypertrophic cardiomyopathy; I25.10 Atherosclerotic heart disease of native coronary artery without angina pectoris; E78.5 Hyperlipidemia, unspecified; G47.33 Obstructive sleep apnea (adult) (pediatric); M10.9 Gout, unspecified; R00.0 Tachycardia, unspecified; E66.01 Morbid (severe) obesity due to excess calories; R73.03 Prediabetes; K21.9 Gastro-esophageal reflux disease without esophagitis; Z95.5 Presence of coronary angioplasty implant and graft
CPT/HCPCS: 36415; 71046; 71275; 80048; 80053; 82465; 83036; 83735; 84443; 84484; 85025; 85380; 85610; 85730; 93005; 93458; 96361; 96372; 96374; 99291; A9270; C1725; C1769; C1874; C1887; C1894; C8929; C9600; G0378; J0583; J1644; J1650; J2250; J2405; J3010; J7030; J7040; J7120; Q9957; Q9967

== ENCOUNTER 2020-07-12 08:21 | Emergency (ER) | payer MEDICARE, OTHER, SELFPAY ==
--- NOTE | 2020-07-12 08:33 | ED.SKABFB ---
HPI - Skin/Abscess/Foreign Bdy General Chief complaint: Skin/Abscess/Foreign Body Stated complaint: Sore on Back Time Seen by Provider: 07/12/20 08:34 Source: patient and RN notes reviewed Mode of arrival: ambulatory Limitations: no limitations History of Present Illness HPI narrative: 69-year-old male presents to the [facility] with complaints of an abscess on his upper back. States has been there for approximately 2 to 3 days. Area is red and painful. No drainage. No treatment prior to arrival. No trauma. Denies chest pain, shortness of breath or abdominal pain. No fevers. Has a history of high blood pressure, CO. Related Data Home Medications Medication Instructions Recorded Confirmed Men's Multivitamin 1 tablet PO DAILY 06/16/20 07/12/20 ProAir RespiClick See Rx Instructions .ROUTE 06/16/20 07/12/20 .COMPLEX PRN allopurinol 300 mg PO DAILY 06/16/20 07/12/20 apple cider vinegar 500 mg PO DAILY 06/16/20 07/12/20 ascorbate sodium (vitamin C) 500 mg PO BID 06/16/20 07/12/20 aspirin 81 mg PO Q12H 06/16/20 07/12/20 fluticasone propionate 2 spray INTRANASAL BID PRN 06/16/20 07/12/20 furosemide 20 mg PO DAILY 06/16/20 07/12/20 metoprolol tartrate 100 mg PO Q12H 06/16/20 07/12/20 montelukast 10 mg PO HS 06/16/20 07/12/20 nitroglycerin See Rx Instructions .ROUTE .COMPLEX 06/16/20 07/12/20 omega-3 fatty acids-vitamin E 1 cap PO DAILY 06/16/20 07/12/20 omeprazole 20 mg PO HS 06/16/20 07/12/20 rosuvastatin 40 mg PO HS 06/16/20 07/12/20 Allergies Allergy/AdvReac Type Severity Reaction Status Date / Time morphine Allergy Mild vomiting Verified 06/16/20 14:02 Review of Systems Review of Systems: Narrative: CONSTITUTIONAL: Denies fever, chills, or sweats. CARDIOVASCULAR: Denies chest pain, palpitations, or edema. RESPIRATORY: Denies cough or dyspnea. GASTROINTESTINAL: Denies abdominal pain, nausea, vomiting, or diarrhea. SKIN: Denies rash or itching. Red, warm to touch, swelling left upper back MUSCULOSKELETAL: Denies back pain, joint pain, or myalgia. NEUROLOGIC: Denies headache, numbness, or weakness. PSYCHIATRIC: Denies anxiety or depression. All other systems reviewed are negative, except as documented in HPI. [facility] Past Medical History Medical History Coronary artery disease History of diagonal [place] [address] Riddle Essential hypertension GERD (gastroesophageal reflux disease) Gout Hyperlipidemia SHELBIE (obstructive sleep apnea) Prediabetes Surgical History Surgical History Hx of tonsillectomy Plantar fasciitis Previous back surgery Family History Family History Father Heart disease of 3rd heart attack age 56 Mother Heart disease History of valve replacement Cerebral hemorrhage Sounds like she might of had an intracranial hemorrhage, related to warfarin? 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 He lives with his , Keely Blanco, and his daughter and three grandchildren. He is a never smoker and reports no alcohol or illicit substance use. He wishes to be a modified code and would like CPR but does not want to be intubated. He has designated his , Keely Blanco, as his surrogate medical decision maker. Smoking status: Never smoker Second hand tobacco smoke exposure: No Alcohol intake: never Substance use: never Gender identity (if verbalized by the patient): Male Spiritual care concerns: Yes Comments At the time of my signature, I reviewed and agree with the nursing past medical, surgical, social, and family history. There is no re
[2020-07-12 08:42] VITALS: BP 144/79; PULSE 88; RESP 20; TEMP 36.6; O2SAT 100
== END 2020-07-12 09:07 | disposition home or self-care (01) ==
PROVIDERS: Emergency Provider Nurse Practitioner
DX: L02.212 Cutaneous abscess of back [any part, except buttock and flank] (principal); I25.10 Atherosclerotic heart disease of native coronary artery without angina pectoris; Z95.5 Presence of coronary angioplasty implant and graft; I10 Essential (primary) hypertension; K21.9 Gastro-esophageal reflux disease without esophagitis; M10.9 Gout, unspecified; E78.5 Hyperlipidemia, unspecified; G47.33 Obstructive sleep apnea (adult) (pediatric); R73.03 Prediabetes
CPT/HCPCS: 10060; 87070; 87205; 99213; G0463

== ENCOUNTER 2020-08-29 20:18 | Observation (INO) | payer MEDICARE, OTHER, SELFPAY ==
[2020-08-29] VITALS (26 sets, daily range): BP systolic 102–141; BP diastolic 55–84; PULSE 48–81; RESP 15–23; TEMP 36.2; O2SAT 98–100
--- NOTE | ~2020-08-29 | XR_ITS ---
EXAMINATION: XR chest 2V DATE: 08/29/2020 21:29 INDICATION: Left chest pain. TECHNIQUE: Frontal and lateral views of the chest were obtained. COMPARISON: Chest 2 views 06/16/2020, chest CT 06/16/2020 FINDINGS: There is mild atelectasis in the lower lung zones. No pleural effusion or pneumothorax. The heart size is normal. There are prominent paracardial fat pads. IMPRESSION: 1. Mild atelectasis in the lower lung zones. Reviewed, dictated and finalized at location A.
--- NOTE | 2020-08-29 20:19 | ECG_ITS ---
Measurements Intervals [place] Rate: 74 P: 24 [place]: 173 QRS: 74 QRSD: 83 T: 53 QT: 400 QTc: 446 Interpretive Statements SINUS RHYTHM BASELINE WANDER- I, II, AVR, AVL, AVF, V2, V4-V6 NORMAL ECG Electronically Signed On 08-30-2020 6:54:08 CDT by Juan Manuel Flynn D.O.
--- NOTE | 2020-08-29 21:15 | PC.NURSE ---
Patient being taken to radiology via stretcher.
[2020-08-29 21:17] LABS: Basophils Percent Auto 0.2 % (0.2-1.2); Eosinophils Absolute Auto 0.2 K/mm3 (0-0.3); Eosinophils Percent Auto 2.3 % (0-4.4); Hematocrit 41.7 % (42.0-52.0); Hemoglobin 13.5 g/dL (14.0-18.0); Immature Granulocyte Absolute 0.02 K/mm3 (0.00-0.031); Immature Granulocyte Percent A 0.3 % (0-0.5); Lymphocytes Percent Auto 34.8 % (18.3-44.2); Mean Corpuscular HGB Conc 32.4 g/dl (32-36); Mean Corpuscular Hemoglobin 30.7 pg (26-34); Mean Corpuscular Volume 94.8 fl (80-100); Mean Platelet Volume 9.4 fl (7.4-10.4); Monocytes Absolute Auto 0.4 K/mm3 (0.1-0.6); Monocytes Percent Auto 6.4 % (2.6-8.5); Neutrophils Absolute Auto 3.7 K/mm3 (1.3-6.7); Platelet Count Result 148 k/mm3 (150-375); Red Cell Distribution Width 14.1 % (11.5-14.5); White Blood Count 6.6 K/mm3 (4.5-10.0)
--- NOTE | 2020-08-29 21:25 | ED.GENADULT ---
HPI - General Adult General Chief complaint: Chest Pain Stated complaint: chest pain Time Seen by Provider: 08/29/20 20:32 History of Present Illness HPI narrative: This is a 9-year-old gentleman who is emergency department complaint of chest pain. The patient reports he has a prior history of cardiac disease and had a stent placed earlier this year. Patient states that today he was walking across the room started having pain in the left side of his chest reports that it was both sharp and pressure. The patient states it feels similar to whenever he had his heart attack back in June that required a stent. Patient states that he has had. He took an 81 mg aspirin earlier today and states that he still having the discomfort. Patient states that it is worsened whenever he exerts himself and improved with rest. Related Data Home Medications Medication Instructions Recorded Confirmed Men's Multivitamin 1 tablet PO DAILY 06/16/20 07/12/20 ProAir RespiClick See Rx Instructions .ROUTE 06/16/20 07/12/20 .COMPLEX PRN allopurinol 300 mg PO DAILY 06/16/20 07/12/20 apple cider vinegar 500 mg PO DAILY 06/16/20 07/12/20 ascorbate sodium (vitamin C) 500 mg PO BID 06/16/20 07/12/20 aspirin 81 mg PO Q12H 06/16/20 07/12/20 fluticasone propionate 2 spray INTRANASAL BID PRN 06/16/20 07/12/20 furosemide 20 mg PO DAILY 06/16/20 07/12/20 metoprolol tartrate 100 mg PO Q12H 06/16/20 07/12/20 montelukast 10 mg PO HS 06/16/20 07/12/20 nitroglycerin See Rx Instructions .ROUTE .COMPLEX 06/16/20 07/12/20 omega-3 fatty acids-vitamin E 1 cap PO DAILY 06/16/20 07/12/20 omeprazole 20 mg PO HS 06/16/20 07/12/20 rosuvastatin 40 mg PO HS 06/16/20 07/12/20 mometasone-formoterol [Dulera] 2 inh INHALATION DAILY 08/25/20 08/25/20 Allergies Allergy/AdvReac Type Severity Reaction Status Date / Time morphine Allergy Mild vomiting Verified 08/29/20 20:36 Review of Systems Review of Systems: Narrative: A 10 system review of systems was completed on the patient and is negative except for what is stated in the HPI. Nursing and ancillary documentation was reviewed. [facility] Past Medical History Medical History Coronary artery disease History of diagonal [place] [address] Riddle Essential hypertension GERD (gastroesophageal reflux disease) Gout Hyperlipidemia SHELBIE (obstructive sleep apnea) Prediabetes Surgical History Surgical History Hx of tonsillectomy Plantar fasciitis Previous back surgery Family History Family History Father Heart disease of 3rd heart attack age 56 Mother Heart disease History of valve replacement Cerebral hemorrhage Sounds like she might of had an intracranial hemorrhage, related to warfarin? 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 He lives with his , Keely Blanco, and his daughter and three grandchildren. He is a never smoker and reports no alcohol or illicit substance use. He wishes to be a modified code and would like CPR but does not want to be intubated. He has designated his , Keely Blanco, as his surrogate medical decision maker. Smoking status: Never smoker Second hand tobacco smoke exposure: No Alcohol intake: never Substance use: never Gender identity (if verbalized by the patient): Male Spiritual care concerns: Yes Exam Narrative: Exam Narrative: GENERAL: Well-appearing, well-nourished, and in no acute distress. HEAD: Normocephalic, atraumatic. EYES: PERRLA and EOMI. ENT: Nares clear, no r
[2020-08-29 21:26] LABS: Anion Gap 6 mmol/L (8-16); Blood Urea Nitrogen 17 mg/dL (9-20); Calcium 8.7 mg/dL (8.4-10.2); Carbon Dioxide 29 mmol/L (22-30); Chloride 105 mmol/L (98-107); Estimated CRCL calculation 103 ml/min; Estimated Glomerular Filt Rate > 60; Glucose 165 mg/dL (75-110); INR 0.9; Potassium 4.1 mmol/L (3.4-5.0); Prothrombin Time 12.4 Seconds (11.1-14.7); Sodium 140 mmol/L (137-145)
[2020-08-29 21:27] LABS: Partial Thromboplastin Time 29.5 SECONDS (22.3-36.8)
[2020-08-29] MEDS: HYDROmorphone HCL INJ (*CRX) 1 MG/ML SYR 0.5 MG IV PUSH (21:31)
[2020-08-29] MEDS: ASPIRIN 81 MG CHEWABLE TABLET 324 MG PO (21:31)
[2020-08-29 21:38] LABS: Troponin I < 0.012 ng/mL (0.000-0.034)
[2020-08-30] VITALS (9 sets, daily range): BP systolic 131–156; BP diastolic 49–78; PULSE 57–78; RESP 18–24; TEMP 35.9–36.6; O2SAT 96–100; BMI 46.3
[2020-08-30 00:34] LABS: Troponin I < 0.012 ng/mL (0.000-0.034)
--- NOTE | 2020-08-30 00:53 | ECG_ITS ---
Measurements Intervals [place] Rate: 60 P: 53 SD: 167 QRS: 70 QRSD: 98 T: 54 QT: 460 QTc: 463 Interpretive Statements SINUS RHYTHM NORMAL ECG Electronically Signed On 09-01-2020 13:44:34 CDT by Juan Manuel Flynn D.O.
--- NOTE | 2020-08-30 00:56 | ADMGEN ---
This patient, Pierre Blanco, was admitted to IMU Room 211-01 at 0030. Patient/family oriented to hospital policies and general routines including ID bracelet, bed and alarms, visiting hours, pain management, procedures, bathroom and other care routines, personal items, smoking policy, room service/diet, and visiting hours. Information on how to activate the Rapid Response Team has been discussed. Patient/Family are encouraged to report perceived risks to care and to ask questions if they do not understand what they are told or what they should do.
--- NOTE | 2020-08-30 01:55 | PM.IMHP ---
H&P: HPI History of Present Illness Date/Time: 08/30/20 01:55 Chief Complaint: chest pain Narrative: This is a pleasant 69 year old obese male with known history of CAD+ s/p #2 stents, one of which was just placed in Jun 2020 after he suffered an NSTEMI and had a stent placed in the mid circumflex artery, who now returns to the emergency room with a complaint of left-sided chest pain. The patient states that he was walking to the bathroom when suddenly he started to feel severely left lateral chest wall pain. His chest pain was sharp and associated with shortness of breath. On arrival to the emergency room the patient's chest pain has resolved. He denies any fevers, chills, worsening cough, abdominal pain, nausea, vomiting, diarrhea, dysuria, hematuria, rectal bleeding, or worsening lower extremity swelling. The patient is known to have chronic cough for the past 2 years as well as chronic lower extremity swelling which has not changed recently. Routine labs were obtained in the emergency room this evening and troponin has been negative. Cardiology was consulted by ER provider and we have been asked to admit the patient to the hospital for them for chest pain rule out. On my encounter with the patient this evening he is asymptomatic at the current moment. No other complaints at this time. Review of Systems Review of Systems: All systems reviewed & are unremarkable except as noted in HPI and below PMFSH Past Medical History Medical History Coronary artery disease History of diagonal [place] [address] Riddle Essential hypertension GERD (gastroesophageal reflux disease) Gout Hyperlipidemia SHELBIE (obstructive sleep apnea) Prediabetes Surgical History Surgical History Hx of tonsillectomy Plantar fasciitis Previous back surgery Family History Family History Father Heart disease of 3rd heart attack age 56 Mother Heart disease History of valve replacement Cerebral hemorrhage Sounds like she might of had an intracranial hemorrhage, related to warfarin? 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 He lives with his , Keely Blanco, and his daughter and three grandchildren. He is a never smoker and reports no alcohol or illicit substance use. He wishes to be a modified code and would like CPR but does not want to be intubated. He has designated his , Keely Blanco, as his surrogate medical decision maker. Smoking status: Never smoker Second hand tobacco smoke exposure: No Alcohol intake: never Substance use: never Substance use type: does not use Gender identity (if verbalized by the patient): Male Spiritual care concerns: No Meds Home Medications and Allergies Home Medications Medication Instructions Recorded Confirmed Type Men's Multivitamin 1 tablet PO DAILY 06/16/20 08/30/20 History ProAir RespiClick See Rx Instructions .ROUTE 06/16/20 08/30/20 History .COMPLEX PRN allopurinol 300 mg PO DAILY 06/16/20 08/30/20 History apple cider vinegar 500 mg PO DAILY 06/16/20 08/30/20 History ascorbate sodium (vitamin C) 500 mg PO BID 06/16/20 08/30/20 History aspirin 81 mg PO Q12H 06/16/20 08/30/20 History fluticasone propionate 2 spray INTRANASAL BID PRN 06/16/20 08/30/20 History furosemide 20 mg PO DAILY 06/16/20 08/30/20 History metoprolol tartrate 100 mg PO Q12H 06/16/20 08/30/20 History montelukast 10 mg PO HS 06/16/20 08/30/20 History nitroglycerin See Rx Instructions .ROUTE .COMPLEX 06/16/20 08/30/20 History omega-3 fatty acids-vitam
[2020-08-30 03:23] LABS: Eosinophils Absolute Auto 0.1 K/mm3 (0-0.3); Eosinophils Percent Auto 1.9 % (0-4.4); Hematocrit 40.2 % (42.0-52.0); Hemoglobin 13.1 g/dL (14.0-18.0); Immature Granulocyte Absolute 0.01 K/mm3 (0.00-0.031); Immature Granulocyte Percent A 0.2 % (0-0.5); Lymphocytes Absolute Auto 1.96 K/mm3 (0.9-3.2); Lymphocytes Percent Auto 36.9 % (18.3-44.2); Mean Corpuscular HGB Conc 32.6 g/dl (32-36); Mean Corpuscular Hemoglobin 30.4 pg (26-34); Mean Corpuscular Volume 93.3 fl (80-100); Monocytes Absolute Auto 0.4 K/mm3 (0.1-0.6); Monocytes Percent Auto 7.5 % (2.6-8.5); Neutrophils Absolute Auto 2.8 K/mm3 (1.3-6.7); Neutrophils Percent Auto 53.5 % (45.5-73.1); Platelet Count Result 130 k/mm3 (150-375); Red Blood Count 4.31 M/mm3 (4.6-6.20); Red Cell Distribution Width 14.1 % (11.5-14.5); White Blood Count 5.3 K/mm3 (4.5-10.0)
[2020-08-30 03:34] LABS: Anion Gap 4 mmol/L (8-16); Blood Urea Nitrogen 18 mg/dL (9-20); Calcium 8.1 mg/dL (8.4-10.2); Carbon Dioxide 30 mmol/L (22-30); Chloride 106 mmol/L (98-107); Estimated CRCL calculation 117 ml/min; Estimated Glomerular Filt Rate > 60; Glucose 117 mg/dL (75-110); Potassium 3.9 mmol/L (3.4-5.0); Sodium 140 mmol/L (137-145)
[2020-08-30 03:46] LABS: Troponin I < 0.012 ng/mL (0.000-0.034)
[2020-08-30 08:17] LABS: Glucose Point of Care 120 (65-105)
--- NOTE | 2020-08-30 09:07 | PM.IMPN ---
Progress Note: A&P Additional Plan This is a pleasant 69 year old obese male with known history of CAD s/p #2 stents, one of which was just placed in Jun 2020 after he suffered an NSTEMI and had a stent placed in the mid circumflex artery, who now returns to the emergency room with a complaint of left-sided chest pain. The patient states that he was walking to the bathroom when suddenly he started to feel severely left lateral chest wall pain. His chest pain was sharp and associated with shortness of breath. On arrival to the emergency room the patient's chest pain has resolved. He denies any fevers, chills, worsening cough, abdominal pain, nausea, vomiting, diarrhea, dysuria, hematuria, rectal bleeding, or worsening lower extremity swelling. The patient is known to have chronic cough for the past 2 years as well as chronic lower extremity swelling which has not changed recently. Routine labs were obtained in the emergency room this evening and troponin has been negative. Cardiology was consulted by ER provider and we have been asked to admit the patient to the hospital for them for chest pain rule out. # Chest pain: atypical. obs status. EKG within normal limits. nitroglyerin prn. troponin trends has been normal. on aspirin and plavix already. cardiology has been consulted. await recs. # Prediabetes: does not appear to be on metforin at thsi time. accuchecks. ssi. hypoglycemia protocol # Gout: allopurinol # SHELBIE: on home CPAP # hyperlipidemia: Continue Crestor # Essential hypertension: Continue metoprolol # GERD: # DVT proph: ambulatory Subjective Date/time seen: 08/30/20 09:07 Objective Data Vital Signs Vital Signs: Vital Signs - 24 hr 08/29/20 20:30 08/29/20 20:31 08/29/20 20:32 Temperature 97.1 F L Pulse Rate 73 81 72 Respiratory Rate 22 H 21 H 17 Blood Pressure 141/84 H 141/84 H Pulse Oximetry 99 100 100 08/29/20 20:45 08/29/20 21:00 08/29/20 21:07 Temperature Pulse Rate 75 73 67 Respiratory Rate 20 Blood Pressure 120/73 Pulse Oximetry 100 08/29/20 21:10 08/29/20 21:27 08/29/20 21:28 Temperature Pulse Rate 66 80 75 Respiratory Rate 17 23 H 20 Blood Pressure 120/73 124/57 L Pulse Oximetry 100 98 100 08/29/20 21:30 08/29/20 21:31 08/29/20 21:45 Temperature Pulse Rate 72 70 68 Respiratory Rate 15 Blood Pressure 122/61 Pulse Oximetry 99 99 100 08/29/20 22:00 08/29/20 22:01 08/29/20 22:02 Temperature Pulse Rate 64 63 60 Respiratory Rate 17 22 H 16 Blood Pressure 134/72 Pulse Oximetry 100 100 100 08/29/20 22:15 08/29/20 22:30 08/29/20 22:31 Temperature Pulse Rate 59 L 52 L 48 L Respiratory Rate 19 18 18 Blood Pressure 104/57 L Pulse Oximetry 99 100 100 08/29/20 22:45 08/29/20 23:00 08/29/20 23:01 Temperature Pulse Rate Respiratory Rate Blood Pressure Pulse Oximetry 99 100 100 08/29/20 23:15 08/29/20 23:16 08/29/20 23:30 Temperature Pulse Rate 52 L 57 L 56 L Respiratory Rate 16 22 H 22 H Blood Pressure 102/55 L Pulse Oximetry 100 100 100 08/29/20 23:31 08/29/20 23:35 08/30/20 00:16 Temperature 97.9 F Pulse Rate 58 L 63 57 L Respiratory Rate 19 16 18 Blood Pressure 123/63 133/70 Pulse Oximetry 100 100 96 08/30/20 00:45 08/30/20 00:56 08/30/20 02:00 Temperature 97.5 F L Pulse Rate 69 58 L 74 Respiratory Rate 18 18 Blood Pressure 156/78 H Pulse Oximetry 98 98 08/30/20 04:00 08/30/20 06:00 08/30/20 08:30 Temperature 97.6 F 96.7 F L Pulse Rate 78 69 67 Respiratory Rate 20 24 H Blood Pressure 131/49 L 135/71 Pulse Oximetry 97 100 Intake/Output Intake/Output: Intake & Output 08/27/20 08/28/20 08/29/20 08/30/20 23:59 23:59 23:59 23:59 Output Total 700 Balance -700 Meds/Results Medications: Active Medications Generic Name Dose Route Start Last Admin Trade Name Freq PRN Reason Stop Dose Admin Albuterol 2 puff 08/30/20 02:08 Albuterol Sulfat
[2020-08-30] MEDS: CLOPIDOGREL BISULFATE 75 MG TABLET PO (09:57)
[2020-08-30] MEDS: THERAPEUTIC MULTIVITAMINS/MINERALS TAB (*BKC) 1 TABLET PO (09:57)
[2020-08-30] MEDS: ENOXAPARIN 40 MG/0.4 ML SYRINGE SUB-Q (09:57)
[2020-08-30] MEDS: METOPROLOL TARTRATE 50 MG TAB 100 MG PO (09:57)
[2020-08-30] MEDS: FUROSEMIDE 20 MG TABLET PO (09:57)
[2020-08-30] MEDS: ASPIRIN 81 MG ENTERIC TABLET PO (09:57)
[2020-08-30] MEDS: allopurinoL 300 MG TABLET PO (09:57)
[2020-08-30] MEDS: LOSARTAN POTASSIUM 50 MG TABLET PO (09:57)
[2020-08-30] MEDS: ASCORBIC ACID 500 MG TABLET PO (09:58)
[2020-08-30] MEDS: OMEGA 3 POLYUNSAT FATTY ACIDS 1 GM CAP PO (09:58)
--- NOTE | 2020-08-30 10:56 | PM.DS ---
DS: Admitting Diagnosis Admitting Diagnosis Admitting Diagnosis: chest pain DS: Discharge Diagnosis Discharge Diagnosis (1) Chest pain: Qualifiers: Chest pain type: unspecified Qualified Code(s): R07.9 - Chest pain, unspecified Code(s): R07.9 - Chest pain, unspecified Status: Acute (2) Coronary artery disease: Code(s): I25.10 - Atherosclerotic heart disease of [place] coronary artery without angina pectoris Status: Chronic (3) Essential hypertension: Code(s): I10 - Essential (primary) hypertension Status: Chronic (4) Hyperlipidemia: Code(s): E78.5 - Hyperlipidemia, unspecified Status: Chronic (5) SHELBIE (obstructive sleep apnea): Code(s): G47.33 - Obstructive sleep apnea (adult) (pediatric) Status: Chronic (6) Gout: Code(s): M10.9 - Gout, unspecified Status: Chronic (7) Hypertrophic cardiomyopathy: Code(s): I42.2 - Other hypertrophic cardiomyopathy Status: Acute (8) Prediabetes: Code(s): R73.03 - Prediabetes Status: Chronic DS: Summary Hospital Course Hospital Course: This is a pleasant 69 year old obese male with known history of CAD s/p #2 stents, one of which was just placed in Jun 2020 after he suffered an NSTEMI and had a stent placed in the mid circumflex artery, who now returns to the emergency room with a complaint of left-sided chest pain. The patient states that he was walking to the bathroom when suddenly he started to feel severely left lateral chest wall pain. His chest pain was sharp and associated with shortness of breath. On arrival to the emergency room the patient's chest pain has resolved. He denies any fevers, chills, worsening cough, abdominal pain, nausea, vomiting, diarrhea, dysuria, hematuria, rectal bleeding, or worsening lower extremity swelling. The patient is known to have chronic cough for the past 2 years as well as chronic lower extremity swelling which has not changed recently. Routine labs were obtained in the emergency room this evening and troponin has been negative. Cardiology was consulted by ER provider and we have been asked to admit the patient to the hospital for them for chest pain rule out. # Chest pain: atypical. admitted under observation status. EKG within normal limits. nitroglyerin prn. troponin trends has been normal x 3 on aspirin and plavix already. cardiology has been consulted. no further workup per cardiology. he is planned to follow up with Dr. Simms in September and recommended to do so. HIs chest pain was reproducible and suggested likely musculoskeletal in origin rather than cardiac. His Chest xary was negative for any acute pulmonary issues. he does reports chronic cough that he is seeing Dr. Sadia spencer for. He does not think his cough is any worse than before. he remained hemodynamcically stable throughout his hospital stay. # Prediabetes: does not appear to be on metforin at thsi time. accuchecks. ssi. hypoglycemia protocol # Gout: allopurinol # SHELBIE: on home CPAP # hyperlipidemia: Continue Crestor # Essential hypertension: Continue metoprolol # GERD: home meds # chronic cough: seeing Dr. Sadia spencer. # DVT proph: ambulatory Status at Discharge Functional status at discharge: independent ambulation Overall status at discharge: patient is back to baseline Time Spent with Patient Time attestation: Total time spent providing and/or coordinating discharge services:35 mins Exam Const: General: cooperative, healthy appearing, alert and awake Nutritional Appearance: obese Orientation/consciousness: patient oriented x3 HENMT: Head: normal to inspection General nose exam: Normal external nose present Face and sinus: normal facial exam Mouth: Yes Normal oral and palatal mucosa present and Yes oropharynx normal Eyes: Pupils: Equal, round and reactive pupils present EOM: EOMs intact bilaterally Neck: Neck: supple and no JVD Thyroi
[2020-08-30 12:16] LABS: Glucose Point of Care 133 (65-105)
--- NOTE | 2020-08-30 13:56 | PM.CNCAR ---
Assessment and Plan Assessment and plan (1) Chest pain: Qualifiers: Chest pain type: unspecified Qualified Code(s): R07.9 - Chest pain, unspecified Code(s): R07.9 - Chest pain, unspecified Status: Acute Assessment and Plan: Atypical, noncardiac etiology, reproducible on examination with negative cardiac enzymes and no ischemic changes by EKG. Symptoms are dissimilar to prior anginal symptoms and currently resolved. No further cardiac workup indicated at this time. Disposition per hospitalist service to follow up with Dr. Shorty Lorenzana scheduled as an outpatient on September 29. Continue dual antiplatelet therapy without interruption given recent drug-eluting stent implantation and non ST-elevation FL June 2010. Aggressive risk modification. Counseled patient in this regard. Patient verbalized understanding of the above recommendations and agreed with plan of care. He is quite comfortable going home to follow up as an outpatient as scheduled. He will notify the office should he have recurrence or new concerns immediately. (2) Essential hypertension: Code(s): I10 - Essential (primary) hypertension Status: Chronic Assessment and Plan: Stable, continue current medical therapy. (3) Hyperlipidemia: Code(s): E78.5 - Hyperlipidemia, unspecified Status: Chronic Assessment and Plan: Continue statin therapy, goal LDL less than 70. (4) Coronary artery disease: Code(s): I25.10 - Atherosclerotic heart disease of [place] coronary artery without angina pectoris Status: Chronic Assessment and Plan: As above. Aggressive medical therapy, lifestyle modification. Follow with Dr. Lorenzana scheduled. Disposition home. History of Present Illness History of Present Illness Consult date/time: Date of service: 08/30/20 13:56 Cardiology consultation at the request of Dr. Han for opinion regarding complaints of chest pain. Requesting physician: Nitin Han MD Consult reason: chest pain Reason For Visit: chest pain Narrative: Patient is a pleasant 69-year-old male with a past medical history significant for hypertension, GERD, and history of CAD with remote stent implantation to the diagonal branch 2006 with recent [address] ST-elevation [place] June 2020 status post 3.0 x 30 mm Orsiro SASKIA to OM off Cx with stable disease in LAD and distal Cx AV groove compared to 2016 who had been in his usual state of health when he presented with complaints of left-sided chest pain which occurred while walking to the bathroom noted over the left lateral chest wall. Patient states this pain was sharp predominantly no exacerbation with activity or position, deep breathing or coughing. Denies stable lower extremity edema, nor new orthopnea or PND. Patient has been compliant with his medications denies palpitations, near-syncope or syncope. Denies fevers, chills. Again he notes a chronic dry cough which she has had for 2-3 years no change. He has been compliant with medications and has not missed any aspirin or Plavix doses. He follows with Dr. Lorenzana as an outpatient. He states this is different than his symptoms when he presented with FL and in fact is more similar symptoms previously evaluated and felt to be non cardiac. However, patient became concerned given his recent non ST elevation FL in June he did not want to take chances of present to the ER. EKG did not reveal new acute ischemic changes, ruled out for myocardial infarction with negative serial enzymes. Patient is pain-free as no concern for he took Tylenol and was given pain medication with resolution of his symptoms without recurrence. He did not take sublingual nitroglycerin as he states he is stubborn. Patient states he is quite comfortable and is back to his baseline. Review of Systems Review of Systems: All systems reviewed & are unremarkable except as noted in HPI and below Constitutional: Constitutional: Re
== END 2020-08-30 12:08 | disposition home or self-care (01) ==
LOC: ANHED 22:40 → ANHIMU 23:52
PROVIDERS: Emergency Medicine; Admitting Provider Family Medicine; Emergency Provider Emergency Medicine; PCP Family Medicine; Visit Provider Internal Medicine
DX: R07.89 Other chest pain (principal); E66.9 Obesity, unspecified; E78.5 Hyperlipidemia, unspecified; G47.33 Obstructive sleep apnea (adult) (pediatric); I10 Essential (primary) hypertension; I25.10 Atherosclerotic heart disease of native coronary artery without angina pectoris; I25.2 Old myocardial infarction; K21.9 Gastro-esophageal reflux disease without esophagitis; Z68.42 Body mass index [BMI] 45.0-49.9, adult; Z95.5 Presence of coronary angioplasty implant and graft
CPT/HCPCS: 36415; 71046; 80048; 82948; 84484; 85025; 85610; 85730; 93005; 96372; 96374; 99285; A9270; G0378; J1170; J1650

== ENCOUNTER 2020-09-30 10:30 | Outpatient (RCR) | payer MEDICARE, OTHER, SELFPAY ==
[2020-07-09 15:22] VITALS: BP 134/80; PULSE 77; RESP 20; TEMP 36.1; O2SAT 95
--- NOTE | 2020-08-30 09:29 | PCCPR ---
Absent/hospitalized Pierre's called this am states he is in the hospital to rule out another [facility].
== END 2020-09-30 12:35 | disposition home or self-care (01) ==
LOC: ANHCPREHAB 10:30
PROVIDERS: PCP Family Medicine; Visit Provider Nurse Practitioner Adult Health
DX: Z95.5 Presence of coronary angioplasty implant and graft (principal); I25.2 Old myocardial infarction; E66.01 Morbid (severe) obesity due to excess calories
CPT/HCPCS: 93798

== ENCOUNTER 2021-09-22 19:21 | Inpatient (IN) | payer MEDICARE, OTHER, SELFPAY ==
--- NOTE | ~2021-09-22 | XR_ITS ---
EXAMINATION: XR chest 2V DATE: 09/22/2021 19:55 INDICATION: Left chest pain. TECHNIQUE: Frontal and lateral views of the chest were obtained. COMPARISON: Chest 2 views 08/29/2020, chest CT 06/16/2020 FINDINGS: The chest demonstrates clear lungs without pneumonia, pleural effusion, or pneumothorax. Th e heart size is normal. IMPRESSION: 1. No acute cardiopulmonary disease. Reviewed, dictated and finalized at location A.
[2021-09-22 19:28] VITALS: BP 129/77; PULSE 106; RESP 23; TEMP 36.8; O2SAT 99
--- NOTE | 2021-09-22 19:28 | ECG_ITS ---
Measurements Intervals [place] Rate: 102 P: 21 RI: 151 QRS: 80 QRSD: 89 T: 30 QT: 369 QTc: 483 Interpretive Statements SINUS TACHYCARDIA BASELINE WANDER- AVF BORDERLINE ECG Electronically Signed On 09-22-2021 20:00:37 CDT by Juan Manuel Flynn D.O.
[2021-09-22] MEDS: ASPIRIN 81 MG CHEWABLE TABLET 324 MG PO (19:39)
--- NOTE | 2021-09-22 19:39 | ED.CHESTPAIN ---
HPI - Chest Pain General Chief Complaint: Chest Pain Stated Complaint: pain to left arm and left chest Time Seen by Provider: 09/22/21 19:30 Source: patient History of Present Illness HPI narrative: Patient presents with chest pain predominantly on his left sides achy, intermittent associated with exertional activity radiates to his left arm. Patient reports it feels similar to his prior MIs. Symptoms have been intermittent for the past couple days not improving so he came to the ER for further evaluation. Reports he did take a nitro prior to ER evaluation and it did alleviate his pain. Denies any diaphoresis, nausea, vomiting denies any shortness of breath cough or fevers. Denies any urinary symptoms. Related Data Home Medications Medication Instructions Recorded Confirmed Men's Multivitamin 1 tablet PO DAILY 06/16/20 08/30/20 ProAir RespiClick See Rx Instructions .ROUTE 06/16/20 08/30/20 .COMPLEX PRN allopurinol 300 mg PO DAILY 06/16/20 08/30/20 apple cider vinegar 500 mg PO DAILY 06/16/20 08/30/20 ascorbate sodium (vitamin C) 500 mg PO BID 06/16/20 08/30/20 aspirin 81 mg PO Q12H 06/16/20 08/30/20 fluticasone propionate 2 spray INTRANASAL BID PRN 06/16/20 08/30/20 furosemide 20 mg PO DAILY 06/16/20 08/30/20 metoprolol tartrate 100 mg PO Q12H 06/16/20 08/30/20 montelukast 10 mg PO HS 06/16/20 08/30/20 nitroglycerin See Rx Instructions .ROUTE .COMPLEX 06/16/20 08/30/20 omega-3 fatty acids-vitamin E 1 cap PO DAILY 06/16/20 08/30/20 omeprazole 20 mg PO HS 06/16/20 08/30/20 rosuvastatin 40 mg PO HS 06/16/20 08/30/20 Dulera 2 inh INHALATION BID 08/25/20 08/30/20 benzonatate [Tessalon Perles] 100 mg PO TID PRN 08/30/20 08/30/20 Allergies Allergy/AdvReac Type Severity Reaction Status Date / Time morphine Allergy Mild vomiting Verified 09/22/21 19:34 Review of Systems Review of Systems: CONSTITUTIONAL: Denies fever, chills, or sweats. EYES: Denies visual changes, redness, or discharge. ENT: Denies rhinorrhea, congestion, sore throat, or otalgia. CARDIOVASCULAR: Denies palpitations, or edema. RESPIRATORY: Denies cough or dyspnea. GASTROINTESTINAL: Denies abdominal pain, nausea, vomiting, or diarrhea. GENITOURINARY: Denies dysuria or hematuria. SKIN: Denies rash or itching. MUSCULOSKELETAL: Denies back pain, joint pain, or myalgia. NEUROLOGIC: Denies headache, numbness, dizziness, or weakness. PSYCHIATRIC: Denies anxiety or depression. All systems reviewed & are unremarkable except as noted in HPI and below PMFSH Past Medical History Medical History Coronary artery disease History of diagonal stent [place] [address] Riddle Essential hypertension GERD (gastroesophageal reflux disease) Gout Hyperlipidemia SHELBIE (obstructive sleep apnea) Prediabetes Surgical History Surgical History Hx of tonsillectomy Plantar fasciitis Previous back surgery Family History Family History Father Heart disease of 3rd heart attack age 56 Mother Heart disease History of valve replacement Cerebral hemorrhage Sounds like she might of had an intracranial hemorrhage, related to warfarin? 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 He lives with his , Keely Blanco, and his daughter and three grandchildren. He is a never smoker and reports no alcohol or illicit substance use. He wishes to be a modified code and would like CPR but does not want to be intubated. He has designated his , Keely Blanco, as his surrogate medical decision maker. Smoking status: Never smoker [place]
[2021-09-22 19:40] LABS: Basophils Percent Auto 0.3 % (0.2-1.2); Eosinophils Absolute Auto 0.1 K/mm3 (0-0.3); Eosinophils Percent Auto 1.8 % (0-4.4); Hematocrit 42.6 % (42.0-52.0); Hemoglobin 13.9 g/dL (14.0-18.0); Immature Granulocyte Absolute 0.02 K/mm3 (0.00-0.031); Immature Granulocyte Percent A 0.3 % (0-0.5); Lymphocytes Absolute Auto 2.52 K/mm3 (0.9-3.2); Lymphocytes Percent Auto 34.7 % (18.3-44.2); Mean Corpuscular HGB Conc 32.6 g/dl (32-36); Mean Corpuscular Hemoglobin 30.5 pg (26-34); Mean Corpuscular Volume 93.4 fl (80-100); Mean Platelet Volume 9.3 fl (7.4-10.4); Monocytes Absolute Auto 0.5 K/mm3 (0.1-0.6); Monocytes Percent Auto 7.3 % (2.6-8.5); Neutrophils Percent Auto 55.6 % (45.5-73.1); Platelet Count Result 139 k/mm3 (150-375); Red Blood Count 4.56 M/mm3 (4.6-6.20); Red Cell Distribution Width 14.8 % (11.5-14.5); White Blood Count 7.3 K/mm3 (4.5-10.0)
[2021-09-22 19:49] LABS: Prothrombin Time 12.7 Seconds (11.1-14.7)
[2021-09-22 19:50] LABS: Partial Thromboplastin Time 30.7 SECONDS (22.3-36.8)
[2021-09-22 19:51] LABS: Alanine Aminotransferase 26 U/L (6-50); Alkaline Phosphatase 61 U/L (38-126); Anion Gap 8 mmol/L (8-16); Aspartate Amino Transferase 30 U/L (17-59); Bilirubin,Total 0.4 mg/dL (0.2-1.3); Blood Urea Nitrogen 18 mg/dL (9-20); Carbon Dioxide 28 mmol/L (22-30); Chloride 104 mmol/L (98-107); Estimated CRCL calculation 82 ml/min; Estimated Glomerular Filt Rate > 60; Glucose 128 mg/dL (65-110); Lipase 154 U/L (23-300); Potassium 4.2 mmol/L (3.4-5.0); Sodium 140 mmol/L (137-145)
[2021-09-22 20:03] LABS: Troponin I < 0.012 ng/mL (0.000-0.034)
[2021-09-22 20:20] LABS: D Dimer 0.59 ug/mL (<0.48)
[2021-09-22 20:36] LABS: SARS-CoV-2 RNA PCR Negative
--- NOTE | 2021-09-22 21:33 | PM.IMHP ---
H&P: HPI History of Present Illness Date/Time: 09/22/21 21:33 Chief Complaint: Chest pain. Narrative: This is a 70-year-old male with past medical history significant for coronary artery disease, status post stent placement, obstructive sleep apnea uses CPAP at nighttime, hypertension, gastroesophageal reflux disease, morbid obesity, dementia. Patient presents to the emergency room with his due to chest pain while he was doing some minimal exertion activity pain was localized to the precordial area with radiation to the arm, patient states that he could not take it anymore. Patient denies any shortness of breath, palpitations, cough, fevers, chills, sputum production, nausea, vomiting, abdominal pain, has bilateral lower extremity swelling, no dizziness, no lightheadedness, no syncope, no near syncope. Preliminary workup was significant for ECG with sinus tachycardia. Patient is been admitted for further evaluation, management and treatment. Review of Systems Review of Systems: Chest pain. Constitutional: Constitutional: Denies chills, Denies fatigue, Denies fever(s) and Denies night sweats Eyes: Eyes: Denies change in vision ENT: Denies dysphagia, Denies vertigo, Denies dizziness, Denies nasal congestion, Denies nasal discharge, Denies nasal obstruction and Denies odynophagia Cardiovascular: Cardiovascular: Reports chest pain, Reports leg edema, Denies lightheadedness, Reports radiating jaw, neck or arm pain and Denies palpitations Respiratory: Respiratory: Denies cough Gastrointestinal: Gastrointestinal: Denies abdominal pain, Denies dyspepsia, Denies heartburn, Denies diarrhea, Denies nausea and Denies vomiting Genitourinary: Genitourinary: Denies dysuria Musculoskeletal: Musculoskeletal: Denies arthralgias Integumentary/Breasts: Skin/Breast: Denies rash Neurologic: Denies focal weakness and Denies Sensory deficit (Neuro) Psychiatric: Psychiatric: Reports no additional psychiatric complaints and Reports as per HPI Endocrine: Endocrine: Denies cold intolerance, Denies flushing, Denies heat intolerance, Denies polyphagia, Denies polydipsia and Denies palpitations Hematologic/Lymphatic: Hematologic/Lymphatic: Reports no additional hematologic/lymphatic complaints and Reports as per HPI Allergic/Immunologic: Allergic/Immunologic: Reports no additional allergic/immunologic complaints and Reports as per HPI [facility] Past Medical History Medical History (Updated 09/23/21 @ 05:25 by Nupur Juan MD) Coronary artery disease History of diagonal [place] [address] Riddle Essential hypertension GERD (gastroesophageal reflux disease) Gout Hyperlipidemia SHELBIE (obstructive sleep apnea) Prediabetes Surgical History Surgical History Hx of tonsillectomy Plantar fasciitis Previous back surgery Family History Family History Father Heart disease of 3rd heart attack age 56 Mother Heart disease History of valve replacement Cerebral hemorrhage Sounds like she might of had an intracranial hemorrhage, related to warfarin? 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 He lives with his , Keely Blanco, and his daughter and three grandchildren. He is a never smoker and reports no alcohol or illicit substance use. He wishes to be a modified code and would like CPR but does not want to be intubated. He has designated his , Keely Blanco, as his surrogate medical decision maker. Smoking status: Never smoker Second hand tobacco smoke exposure: No Alcohol intake: never Substance use: never Substance use
[2021-09-22 22:33] VITALS: PULSE 84; RESP 20; O2SAT 97
[2021-09-22 22:35] VITALS: BP 120/73
[2021-09-22 22:57] LABS: Troponin I 0.013 ng/mL (0.000-0.034)
--- NOTE | 2021-09-22 23:20 | PC.NURSE ---
Report received from Indira SPENCER and care of pt assumed at this time.
[2021-09-22 23:29] VITALS: BP 125/77; PULSE 82; RESP 16; O2SAT 100
[2021-09-23] VITALS (17 sets, daily range): BP systolic 126–151; BP diastolic 71–89; PULSE 61–89; RESP 15–28; TEMP 36.4–36.8; O2SAT 96–100
--- NOTE | 2021-09-23 00:48 | ADMGEN ---
This patient, Pierre Blanco, was admitted to IMU Room 202-. Patient/family oriented to hospital policies and general routines including ID bracelet, bed and alarms, visiting hours, pain management, procedures, bathroom and other care routines, personal items, smoking policy, room service/diet, and visiting hours. Information on how to activate the Rapid Response Team has been discussed. Patient/Family are encouraged to report perceived risks to care and to ask questions if they do not understand what they are told or what they should do.
--- NOTE | 2021-09-23 01:02 | PCRCNOTE ---
Pt refusing CPAP use at this time.
[2021-09-23 02:26] LABS: Troponin I < 0.012 ng/mL (0.000-0.034)
[2021-09-23] MEDS: ASPIRIN 81 MG CHEWABLE TABLET PO (08:38)
--- NOTE | 2021-09-23 09:13 | PM.IMPN ---
Progress Note: A&P Assessment and Plan (1) Chest pain: Qualifiers: Chest pain type: unspecified Qualified Code(s): R07.9 - Chest pain, unspecified Code(s): R07.9 - Chest pain, unspecified Status: Acute Assessment and Plan: Pt with history of stent implantation to the diagonal branch [address]-elevation [place] June 2020 status post 3.0 x 30 mm Orsiro SASKIA to OM off Cx. Troponins x3 WNL, CXR normal, EKG showing baseline wander and sinus tachycardia. Last echo unkown at this time, will follow cardiology consult to determine if add'l needed. He does follow with Dr. Lorenzana. Nnitroglycerin for CP, may benefit from Imdur, will defer to cardiology. Continue to monitor/telemetry. AM labs/mag/TSH Continue DAPT Cardiology consult has been placed, and we do appreciate their recommendations. Pt NPO pending consult. Will start diet order afterwards. (2) Coronary artery disease: Code(s): I25.10 - Atherosclerotic heart disease of [place] coronary artery without angina pectoris Status: Chronic Assessment and Plan: History as above. Continue aspirin/plavix. Continue antihypertensive regimen with metoprolol/Losartan. (3) SHELBIE (obstructive sleep apnea): Code(s): G47.33 - Obstructive sleep apnea (adult) (pediatric) Status: Chronic Assessment and Plan: Continue CPAP at nighttime. (4) GERD (gastroesophageal reflux disease): Code(s): K21.9 - Gastro-esophageal reflux disease without esophagitis Status: Acute Assessment and Plan: Continue PPI Subjective Date/time seen: 09/23/21 09:13 Interval history: This is a 70-year-old male with past medical history significant for coronary artery disease, status post stent placement, obstructive sleep apnea uses CPAP at nighttime, hypertension, gastroesophageal reflux disease, morbid obesity, dementia who presents to us with complaints of chest pain radiating to the left arm. Patient reports no more episodes of chest pain. His pain occurred mostly with light street sprinkler and resolved when he stopped performing them yesterday and this AM. He reports he only took one nitroglycerin this morning on his way to the hospital. He states he keeps the bottle in his pocket typically, but tries to avoid taking them because he is stubborn. He denies new shortness of breath. He states he is compliant with his DAPT and doesn't skip doses. He informed me he is being evaluated for dementia by his PCP. Review of Systems Review of Systems: All systems reviewed & are unremarkable except as noted in HPI and below Exam Narrative: GENERAL APPEARANCE: Alert and oriented x 3, in no apparent distress. HEENT: PERRL, EOMI. Sclerae anicteric. Moist mucous membranes. NECK: Supple. No JVD or obvious carotid bruits. RESPIRATORY: Respirations are nonlabored. Breath sounds are equal and clear bilaterally. No wheezes, Rhonchi, or rales. CARDIOVASCULAR: Regular rate and rhythm with normal S1-S2. No murmurs, gallops, or rubs. GASTROINTESTINAL: Soft, flat, and benign. No mass, tenderness, guarding, or rebound. No organomegaly or hernia. Bowel sounds are present. SKIN: Warm, dry, well perfused. Good turgor. No lesions, nodules, or rashes noted. EXTREMITIES: No cyanosis, clubbing, or edema. Radial and pedal pulses intact. NEUROLOGICAL: Alert. Cranial nerves 2-12 are grossly intact. No gross focal deficits to casual conversation. PSYCHIATRIC: Pleasant and cooperative with normal mood and affect. Objective Data Vital Signs Vital Signs: Vital Signs - 24 hr 09/22/21 19:28 09/22/21 22:33 09/22/21 22:35 Temperature 98.2 F Pulse Rate 106 H 84 Respiratory Rate 23 H 20 Blood Pressure 129/77 120/73 Pulse Oximetry 99 97 09/22/21 23:29 09/23/21 01:05 09/23/21 02:00 Temperature Pulse Rate 82 88 89 Respiratory Rate 16 Blood Pressure 125/77 Pulse Oximetry 100 09/23/21
[2021-09-23 09:46] LABS: Eosinophils Absolute Auto 0.1 K/mm3 (0-0.3); Eosinophils Percent Auto 2.1 % (0-4.4); Hematocrit 41.1 % (42.0-52.0); Hemoglobin 13.4 g/dL (14.0-18.0); Immature Granulocyte Absolute 0.01 K/mm3 (0.00-0.031); Immature Granulocyte Percent A 0.2 % (0-0.5); Lymphocytes Absolute Auto 1.67 K/mm3 (0.9-3.2); Lymphocytes Percent Auto 32.5 % (18.3-44.2); Mean Corpuscular HGB Conc 32.6 g/dl (32-36); Mean Corpuscular Hemoglobin 30.4 pg (26-34); Mean Corpuscular Volume 93.2 fl (80-100); Mean Platelet Volume 9.5 fl (7.4-10.4); Monocytes Absolute Auto 0.4 K/mm3 (0.1-0.6); Monocytes Percent Auto 7.2 % (2.6-8.5); Platelet Count Result 125 k/mm3 (150-375); Red Blood Count 4.41 M/mm3 (4.6-6.20); Red Cell Distribution Width 14.6 % (11.5-14.5); White Blood Count 5.1 K/mm3 (4.5-10.0)
[2021-09-23 10:00] LABS: Alanine Aminotransferase 25 U/L (6-50); Albumin Level 3.8 g/dL (3.5-5.1); Alkaline Phosphatase 58 U/L (38-126); Anion Gap 7 mmol/L (8-16); Aspartate Amino Transferase 28 U/L (17-59); Bilirubin,Total 0.5 mg/dL (0.2-1.3); Blood Urea Nitrogen 22 mg/dL (9-20); Calcium 8.3 mg/dL (8.4-10.2); Carbon Dioxide 24 mmol/L (22-30); Chloride 105 mmol/L (98-107); Estimated CRCL calculation 55 ml/min; Estimated Glomerular Filt Rate > 60; Glucose 106 mg/dL (65-110); Magnesium 1.9 mg/dL (1.6-2.3); Potassium 4.1 mmol/L (3.4-5.0); Sodium 136 mmol/L (137-145)
[2021-09-23] MEDS: allopurinoL 300 MG TABLET PO (10:11)
[2021-09-23] MEDS: ASPIRIN 81 MG ENTERIC TABLET PO ×2 (10:12→20:31)
[2021-09-23] MEDS: METOPROLOL TARTRATE 50 MG TAB 100 MG PO ×2 (10:12→20:32)
[2021-09-23] MEDS: LOSARTAN POTASSIUM 50 MG TABLET PO (10:12)
[2021-09-23] MEDS: CLOPIDOGREL BISULFATE 75 MG TABLET PO (10:12)
[2021-09-23] MEDS: FUROSEMIDE 20 MG TABLET PO (10:12)
--- NOTE | 2021-09-23 13:52 | PCCCNOTE ---
On 09/23/21, the student, [Sofia Lui], provided care and completed [facility] documentation on this patient. I have reviewed the student's documentation and agree with the findings.
--- NOTE | 2021-09-23 16:04 | PM.CNCAR ---
Assessment and Plan Additional Plan This is a 70-year-old man known to have coronary disease with interventions in the remote past of a LAD diagonal and last year of the OM branch of his circumflex. He presents to the hospital with recurrent exertional left arm discomfort that he says is very similar to his ischemic symptoms of last year. In this setting I am going to recommend a follow-up angiogram. It is too late in the afternoon to get that on the schedule for today the procedure will be scheduled for Sunday as long as he remains clinically stable.. Sonu Mclean MD [facility] History of Present Illness History of Present Illness Consult date/time: Date of service: 09/23/21 16:04 Consult reason: chest pain Reason For Visit: unstable angina Narrative: This is a 70-year-old man I am seeing at the request of the hospitalist because of chest pain that began about 3 days ago prior to this admission. The patient states that he was feeling well until several days ago when he noticed that routine physical activities around the house such as walking up and down the stairs in taking out the garbage cans were causing him to have some symptoms of pain in the region of the left shoulder and down the left arm. The discomfort was not severe but it was a aching/pressure like sensation that was associated with no other symptoms. He says that this symptom is essentially the same as what he had in July of 2020 when he was here with acute coronary syndrome on a previous admission. The difference between the this symptom in the other 1 is that the other 1 was continuous this 1 was triggered by exertion and typically relieved with rest. When this is been going on for several days he finally decided to come into the emergency room yesterday evening was evaluated and admitted. His electrocardiogram looks normal. He was admitted to the IMU where his troponin levels were found to be negative x3 sets. He is sitting in his hospital room this afternoon visiting with and does not have any other complaints at this time. He has a history of coronary artery disease and follows in our office with Dr. Lorenzana for his cardiac care. The patient underwent stenting of a diagonal branch of his LAD back in 2006. He has done well for a number of years after that but then presented to this hospital with acute coronary syndrome as mentioned above in July of last year. At that time a follow-up angiogram was done which showed his diagonal branch to be nicely patent but he did have a high-grade stenosis in large circumflex OM branch that was treated with a Orsiro -eluting stent with a good anatomic result. He has done well following that until several days ago when he reports these recurrent symptoms. Review of Systems Constitutional: Constitutional: Reports no additional constitutional complaints Eyes: Eyes: Reports no additional eye complaints ENT: Reports system reviewed and no additional complaints, except as documented Cardiovascular: Cardiovascular: Reports as per HPI Respiratory: Respiratory: Reports no additional respiratory complaints Gastrointestinal: Gastrointestinal: Reports no additional gastrointestinal complaints Musculoskeletal: Musculoskeletal: Reports no additional musculoskeletal complaints Integumentary/Breasts: Skin/Breast: Reports system reviewed and no additional complaints, except as docu Neurologic: Comments: Patient has recent symptoms of worsening hearing. states he is being evaluated for possible onset of dementia Endocrine: Endocrine: Reports no additional endocrine complaints Hematologic/Lymphatic: Hematologic/Lymphatic: Reports no additional hematologic/lymphatic complaints Allergic/Immunologic: Allergic/Immunologic: Reports no additional allergic/immunologic complaints [facility] Past Medical History Medical History (Updated 09/23/21 @ 05:25 by Nupur Juan MD) Coronary artery disease History of diagonal stent in
[2021-09-23] MEDS: FLUTICASONE/SALMETEROL 115-21 MCG INHALER 1 PUFF 2 PUFF INHALATION (20:09)
--- NOTE | 2021-09-23 20:15 | PCRCNOTE ---
Pt still refusing use of hospital CPAP. Machine in room on S/B. Pt advised to let nurse know if he wishes to use it.
[2021-09-23] MEDS: ROSUVASTATIN 10 MG TABLET 40 MG PO (20:32)
[2021-09-23] MEDS: PANTOPRAZOLE 40 MG TABLET PO (20:32)
[2021-09-23] MEDS: MONTELUKAST SODIUM 10 MG TABLET PO (20:32)
[2021-09-24] VITALS (20 sets, daily range): BP systolic 109–151; BP diastolic 52–83; PULSE 59–86; RESP 16–20; TEMP 36.1–37.3; O2SAT 18–100
[2021-09-24] MEDS: FLUTICASONE/SALMETEROL 115-21 MCG INHALER 1 PUFF 2 PUFF INHALATION ×2 (08:14→20:53)
[2021-09-24] MEDS: allopurinoL 300 MG TABLET PO (08:28)
[2021-09-24] MEDS: LOSARTAN POTASSIUM 50 MG TABLET PO (08:28)
[2021-09-24] MEDS: CLOPIDOGREL BISULFATE 75 MG TABLET PO (08:28)
[2021-09-24] MEDS: METOPROLOL TARTRATE 50 MG TAB 100 MG PO ×2 (08:28→20:59)
[2021-09-24] MEDS: ASPIRIN 81 MG ENTERIC TABLET PO ×2 (08:28→20:59)
[2021-09-24] MEDS: FUROSEMIDE 20 MG TABLET PO (08:28)
--- NOTE | 2021-09-24 10:38 | PM.PNCARD ---
Progress Note: A&P Additional Plan This is a 70-year-old man who has coronary artery disease because of relatively typical exertional symptoms a follow-up angiogram has been recommended and will be performed on Sunday Sonu Mclean MD [facility] Subjective Date/time seen: Date of service: 09/24/21 10:38 Interval history: Follow-up visit in this 70-year-old man with: Recent onset of exertional chest pain concerning for angina. Prior history of PCI to a diagonal branch in 207 and to his circumflex last year. Plan is in place for follow-up angiography on Sunday. Feels well no complaints this morning Exam Const: General: comfortable and no acute distress Other: Pleasant obese gentleman no distress HENMT: Mouth: Yes moist mucous membranes Eyes: Sclera: sclerae normal Pupils: Equal, round and reactive pupils present Neck: Neck: supple and no JVD Other: Carotid pulses unremarkable bilaterally Resp: Effort & Inspection: normal respiratory effort Auscultation: clear to auscultation bilaterally Cardio: Rate: regular rate Rhythm: regular rhythm Other: PMI not palpable no murmur no gallop GI: GI Palp: Yes Soft to palpation Auscultation: normal bowel sounds Skin: General skin exam: normal color Neuro: Cognition (Neuro): normal cognition Extrem: General: normal to inspection Objective Data Vital Signs Vital Signs: Vital Signs - 24 hr 09/23/21 12:00 09/23/21 14:00 09/23/21 16:00 Temperature 36.6 C 36.7 C Pulse Rate 61 64 73 Respiratory Rate 15 24 H Blood Pressure 151/89 H 135/71 Pulse Oximetry 96 97 09/23/21 18:00 09/23/21 20:00 09/23/21 20:01 Temperature 36.7 C Pulse Rate 71 72 70 Respiratory Rate 20 Blood Pressure 126/77 Pulse Oximetry 99 97 09/23/21 20:10 09/23/21 20:32 09/23/21 22:00 Temperature Pulse Rate 71 75 74 Respiratory Rate Blood Pressure Pulse Oximetry 09/24/21 00:00 09/24/21 01:47 09/24/21 04:00 Temperature 36.4 C 37.3 C Pulse Rate 59 L 60 69 Respiratory Rate 18 16 Blood Pressure 114/56 L 117/63 Pulse Oximetry 18 L 95 09/24/21 06:00 09/24/21 08:00 09/24/21 08:16 Temperature Pulse Rate 63 69 84 Respiratory Rate Blood Pressure Pulse Oximetry 97 09/24/21 08:27 09/24/21 08:28 09/24/21 08:33 Temperature 36.5 C Pulse Rate 77 70 71 Respiratory Rate 16 Blood Pressure 111/54 L 151/74 H Pulse Oximetry 96 Intake/Output Intake/Output: Intake & Output 09/21/21 09/22/21 09/23/21 09/24/21 23:59 23:59 23:59 23:59 Intake Total 650 300 Output Total 1900 400 Balance -1250 -100 Meds/Results Medications: Active Medications Generic Name Dose Route Start Last Admin Trade Name Freq PRN Reason Stop Dose Admin Albuterol 2 puff 09/23/21 09:11 Albuterol Sulfate (*Sp) Aerosol 1 Puff INHALATION Q6H PRN Shortness Of Breath Or Wheezing Allopurinol 300 mg 09/23/21 09:00 09/24/21 08:28 Allopurinol 300 Mg Tablet PO 300 mg DAILY EDGARD Administration Aspirin 81 mg 09/23/21 09:15 09/24/21 08:28 Aspirin 81 Mg Enteric Tablet PO 81 mg Q12HR EDGARD Administration Clopidogrel Bisulfate 75 mg 09/23/21 09:00 09/24/21 08:28 Clopidogrel Bisulfate 75 Mg Tablet PO 75 mg DAILY EDGARD Administration Furosemide 20 mg 09/23/21 09:00 09/24/21 08:28 Furosemide 20 Mg Tablet PO 20 mg DAILY EDGARD Administration Losartan Potassium 50 mg 09/23/21 09:00 09/24/21 08:28 Losartan Potassium 50 Mg Tablet PO 50 mg DAILY EDGARD Administration Metoprolol Tartrate 100 mg 09/23/21 09:15 09/24/21 08:28 Metoprolol Tartrate 50 Mg Tab PO 100 mg Q12HR EDGARD Administration Montelukast Sodium 10 mg 09/23/21 21:00 09/23/21 20:32 Montelukast Sodium 10 Mg Tablet PO 10 mg HS EDGARD Administration Nitroglycerin 0.4 mg 09/22/21 21:44 Nitroglycerin Sl 0.4 Mg Tablet SUBLINGUAL Q5MIN PRN Chest Pain Pantoprazole Sodium 40 mg 09/23/21 21:00 09/23/21 20:
--- NOTE | 2021-09-24 14:50 | PM.IMPN ---
Progress Note: A&P Assessment and Plan (1) Chest pain: Qualifiers: Chest pain type: unspecified Qualified Code(s): R07.9 - Chest pain, unspecified Code(s): R07.9 - Chest pain, unspecified Status: Acute Assessment and Plan: Pt with history of stent implantation to the diagonal branch [address]-elevation [place] June 2020 status post 3.0 x 30 mm Orsiro SASKIA to OM off Cx. Troponins x3 WNL, CXR normal, EKG showing baseline wander and sinus tachycardia. last echo from 06/2709/24/2021 Pt seen by cardiology given his exertional chest pain, cardiology feels he benefits from heart angiogram on Sunday. (2) Coronary artery disease: Code(s): I25.10 - Atherosclerotic heart disease of [place] coronary artery without angina pectoris Status: Chronic Assessment and Plan: Continue aspirin/plavix. Continue antihypertensive regimen with metoprolol/Losartan. (3) SHELBIE (obstructive sleep apnea): Code(s): G47.33 - Obstructive sleep apnea (adult) (pediatric) Status: Chronic Assessment and Plan: Continue CPAP at nighttime. (4) GERD (gastroesophageal reflux disease): Code(s): K21.9 - Gastro-esophageal reflux disease without esophagitis Status: Acute Assessment and Plan: - Continue PPI Subjective Date/time seen: 09/24/21 14:50 Interval history: This is a 70-year-old male with past medical history significant for coronary artery disease, status post stent placement, obstructive sleep apnea uses CPAP at nighttime, hypertension, gastroesophageal reflux disease, morbid obesity, dementia who presents to us with complaints of chest pain radiating to the left arm. 09/24 Pt seen by cardiology. Pt to have angiogram on Sunday. No specific complaints. Review of Systems Review of Systems: All systems reviewed & are unremarkable except as noted in HPI and below Exam Const: General: comfortable Nutritional Appearance: overweight Orientation/consciousness: oriented to person HENMT: Head: normal to inspection Resp: Effort & Inspection: no respiratory distress Auscultation: no rhonchi and no wheezes Cardio: Rate: regular rate Rhythm: regular rhythm GI: Inspection: normal to inspection GI Palp: No abdominal tenderness, No Guarding due to palpation present (GI) and No Hepatomegaly present Auscultation: normal bowel sounds Neuro: General: oriented to person Objective Data Vital Signs Vital Signs: Vital Signs - 24 hr 09/23/21 16:00 09/23/21 18:00 09/23/21 20:00 Temperature 36.7 C 36.7 C Pulse Rate 73 71 72 Respiratory Rate 24 H 20 Blood Pressure 135/71 126/77 Pulse Oximetry 97 99 09/23/21 20:01 09/23/21 20:10 09/23/21 20:32 Temperature Pulse Rate 70 71 75 Respiratory Rate Blood Pressure Pulse Oximetry 97 09/23/21 22:00 09/24/21 00:00 09/24/21 01:47 Temperature 36.4 C Pulse Rate 74 59 L 60 Respiratory Rate 18 Blood Pressure 114/56 L Pulse Oximetry 18 L 09/24/21 04:00 09/24/21 06:00 09/24/21 08:00 Temperature 37.3 C Pulse Rate 69 63 69 Respiratory Rate 16 Blood Pressure 117/63 Pulse Oximetry 95 09/24/21 08:16 09/24/21 08:27 09/24/21 08:28 Temperature Pulse Rate 84 77 70 Respiratory Rate Blood Pressure 111/54 L Pulse Oximetry 97 09/24/21 08:33 09/24/21 10:00 09/24/21 12:00 Temperature 36.5 C 36.7 C Pulse Rate 71 77 71 Respiratory Rate 16 20 Blood Pressure 151/74 H 109/74 Pulse Oximetry 96 96 09/24/21 14:00 Temperature Pulse Rate 70 Respiratory Rate Blood Pressure Pulse Oximetry Intake/Output Intake/Output: Intake & Output 09/21/21 09/22/21 09/23/21 09/24/21 23:59 23:59 23:59 23:59 Intake Total 650 540 Output Total 1900 400 Balance -1250 140 Meds/Results Medications: Active Medications Generic Name Dose Route Start Last Admin Trade Name Freq PRN Reason Stop Dose Admin Albuterol 2 puff 09/23/21 09:11 Alb
[2021-09-24] MEDS: PANTOPRAZOLE 40 MG TABLET PO (20:59)
[2021-09-24] MEDS: MONTELUKAST SODIUM 10 MG TABLET PO (20:59)
[2021-09-24] MEDS: ROSUVASTATIN 10 MG TABLET 40 MG PO (21:00)
[2021-09-25] VITALS (18 sets, daily range): BP systolic 111–139; BP diastolic 54–79; PULSE 54–95; RESP 16–20; TEMP 36.2–36.6; O2SAT 96–100
[2021-09-25] MEDS: FLUTICASONE/SALMETEROL 115-21 MCG INHALER 1 PUFF 2 PUFF INHALATION ×2 (07:48→20:20)
--- NOTE | 2021-09-25 08:28 | PM.PNCARD ---
Progress Note: A&P Additional Plan Plan for follow-up angiography tomorrow morning to evaluate exertional symptoms as detailed in previous note. Further recommendations will be forthcoming tomorrow's angiographic findings Sonu Mclean MD [facility] Subjective Date/time seen: Date of service: 09/25/21 08:28 Interval history: Follow-up visit in this 70-year-old man with: Coronary artery disease previous PCI to the diagonal branch in the remote past and PCI to the circumflex into OM branch last year. Presents with exertional symptoms concerning for angina. Plan for follow-up angiography tomorrow morning discussed again with the patient Exam Const: General: comfortable and no acute distress HENMT: Mouth: Yes moist mucous membranes Eyes: Sclera: sclerae normal Neck: Neck: supple and no JVD Resp: Effort & Inspection: normal respiratory effort Auscultation: clear to auscultation bilaterally Cardio: Rate: regular rate Rhythm: regular rhythm GI: GI Palp: Yes Soft to palpation Auscultation: normal bowel sounds Skin: General skin exam: normal color Neuro: Cognition (Neuro): normal cognition Extrem: General: normal to inspection Objective Data Vital Signs Vital Signs: Vital Signs - 24 hr 09/24/21 08:33 09/24/21 10:00 09/24/21 12:00 Temperature 36.5 C 36.7 C Pulse Rate 71 77 71 Respiratory Rate 16 20 Blood Pressure 151/74 H 109/74 Pulse Oximetry 96 96 09/24/21 14:00 09/24/21 16:00 09/24/21 18:00 Temperature 36.7 C Pulse Rate 70 73 73 Respiratory Rate 20 Blood Pressure 114/54 L Pulse Oximetry 97 09/24/21 19:18 09/24/21 20:00 09/24/21 20:54 Temperature 36.5 C Pulse Rate 86 80 Respiratory Rate 16 Blood Pressure 151/83 H Pulse Oximetry 100 97 97 09/24/21 20:59 09/24/21 22:00 09/24/21 23:06 Temperature 36.1 C L Pulse Rate 78 79 61 Respiratory Rate 20 Blood Pressure 115/52 L Pulse Oximetry 100 09/25/21 00:00 09/25/21 02:00 09/25/21 04:00 Temperature 36.6 C Pulse Rate 56 L 63 61 Respiratory Rate 20 Blood Pressure 111/79 Pulse Oximetry 100 100 09/25/21 06:00 09/25/21 07:49 09/25/21 07:52 Temperature 36.6 C Pulse Rate 54 L 73 Respiratory Rate 16 Blood Pressure 126/71 Pulse Oximetry 97 96 Intake/Output Intake/Output: Intake & Output 09/22/21 09/23/21 09/24/21 09/25/21 23:59 23:59 23:59 23:59 Intake Total 650 1320 Output Total 1900 1200 750 Balance -1250 120 -750 Meds/Results Medications: Active Medications Generic Name Dose Route Start Last Admin Trade Name Freq PRN Reason Stop Dose Admin Albuterol 2 puff 09/23/21 09:11 Albuterol Sulfate (*Sp) Aerosol 1 Puff INHALATION Q6H PRN Shortness Of Breath Or Wheezing Allopurinol 300 mg 09/23/21 09:00 09/24/21 08:28 Allopurinol 300 Mg Tablet PO 300 mg DAILY EDGARD Administration Aspirin 81 mg 09/23/21 09:15 09/24/21 20:59 Aspirin 81 Mg Enteric Tablet PO 81 mg Q12HR EDGARD Administration Clopidogrel Bisulfate 75 mg 09/23/21 09:00 09/24/21 08:28 Clopidogrel Bisulfate 75 Mg Tablet PO 75 mg DAILY EDGARD Administration Furosemide 20 mg 09/23/21 09:00 09/24/21 08:28 Furosemide 20 Mg Tablet PO 20 mg DAILY EDGARD Administration Losartan Potassium 50 mg 09/23/21 09:00 09/24/21 08:28 Losartan Potassium 50 Mg Tablet PO 50 mg DAILY EDGARD Administration Metoprolol Tartrate 100 mg 09/23/21 09:15 09/24/21 20:59 Metoprolol Tartrate 50 Mg Tab PO 100 mg Q12HR EDGARD Administration Montelukast Sodium 10 mg 09/23/21 21:00 09/24/21 20:59 Montelukast Sodium 10 Mg Tablet PO 10 mg HS EDGARD Administration Nitroglycerin 0.4 mg 09/22/21 21:44 Nitroglycerin Sl 0.4 Mg Tablet SUBLINGUAL Q5MIN PRN Chest Pain Pantoprazole Sodium 40 mg 09/23/21 21:00 09/24/21 20:59 Pantoprazole 40 Mg Tablet PO 10/23/21 20:59 40 mg HS EDGARD Administration Perflutren Lipid Microsphere 0 ml 09/24/21 15:09
[2021-09-25] MEDS: LOSARTAN POTASSIUM 50 MG TABLET PO (08:48)
[2021-09-25] MEDS: FUROSEMIDE 20 MG TABLET PO (08:48)
[2021-09-25] MEDS: ASPIRIN 81 MG ENTERIC TABLET PO ×2 (08:48→20:50)
[2021-09-25] MEDS: CLOPIDOGREL BISULFATE 75 MG TABLET PO (08:48)
[2021-09-25] MEDS: allopurinoL 300 MG TABLET PO (08:48)
[2021-09-25] MEDS: METOPROLOL TARTRATE 50 MG TAB 100 MG PO ×2 (08:48→20:51)
--- NOTE | 2021-09-25 10:59 | PM.IMPN ---
Progress Note: A&P Assessment and Plan (1) Chest pain: Qualifiers: Chest pain type: unspecified Qualified Code(s): R07.9 - Chest pain, unspecified Code(s): R07.9 - Chest pain, unspecified Status: Acute Assessment and Plan: Pt with history of stent implantation to the diagonal branch [address]-elevation [place] June 2020 status post 3.0 x 30 mm Orsiro SASKIA to OM off Cx. Troponins x3 WNL, CXR normal, EKG showing baseline wander and sinus tachycardia. last echo from 06/2709/24/2021 Pt seen by cardiology given his exertional chest pain, cardiology feels he benefits from heart angiogram on Sunday. - 09/25/21: Pt. without any current pain today. He remains stable with NSR on telemetry. He will be NPO after MN tonight for Angiogram tomorrow. (2) Coronary artery disease: Code(s): I25.10 - Atherosclerotic heart disease of [place] coronary artery without angina pectoris Status: Chronic Assessment and Plan: Continue aspirin/plavix. Continue antihypertensive regimen with metoprolol/Losartan. - 09/25/21: Continue all Cardiac treatments as outlined by Cardiology. Continue home medications and await the results of the Angiogram tomorrow. (3) SHELBIE (obstructive sleep apnea): Code(s): G47.33 - Obstructive sleep apnea (adult) (pediatric) Status: Chronic Assessment and Plan: Continue CPAP at nighttime. (4) GERD (gastroesophageal reflux disease): Code(s): K21.9 - Gastro-esophageal reflux disease without esophagitis Status: Acute Assessment and Plan: - Continue PPI Time Spent With Patient Time with patient: 15 - 25 minutes Subjective Date/time seen: 09/25/21 11:00 This pt. was examined at the bedside in interval assessment today,. He is set to have Cardiac Angiography tomorrow. He denies any current CP or dyspnea and states he is feeling better. He does however have a significant history of CAD. No N/V/D. Review of Systems Review of Systems: All systems reviewed & are unremarkable except as noted in HPI and below Exam Const: General: comfortable and no acute distress Other: obese HENMT: Mouth: Yes moist mucous membranes Eyes: Sclera: sclerae normal Neck: Neck: supple and no JVD Lymphatic: lymphadenopathy not noted Resp: Effort & Inspection: normal respiratory effort Auscultation: clear to auscultation bilaterally Cardio: Rate: regular rate Rhythm: regular rhythm GI: GI Palp: Yes Soft to palpation and No Tenderness to palpation present (GI) Auscultation: normal bowel sounds Skin: General skin exam: normal color and no rashes or lesions noted Neuro: General: gait normal Cognition (Neuro): normal cognition Speech: normal speech Motor exam (neuro): 5/5 motor strength present throughout and Normal motor muscle tone present throughout Sensory Exam: normal sensation Extrem: General: normal to inspection Psych: Mental Status: mental status grossly normal Objective Data Vital Signs Vital Signs: Vital Signs - 24 hr 09/24/21 12:00 09/24/21 14:00 09/24/21 16:00 Temperature 98.0 F 98.1 F Pulse Rate 71 70 73 Respiratory Rate 20 20 Blood Pressure 109/74 114/54 L Pulse Oximetry 96 97 09/24/21 18:00 09/24/21 19:18 09/24/21 20:00 Temperature 97.7 F Pulse Rate 73 86 80 Respiratory Rate 16 Blood Pressure 151/83 H Pulse Oximetry 100 97 09/24/21 20:54 09/24/21 20:59 09/24/21 22:00 Temperature Pulse Rate 78 79 Respiratory Rate Blood Pressure Pulse Oximetry 97 09/24/21 23:06 09/25/21 00:00 09/25/21 02:00 Temperature 97 F L Pulse Rate 61 56 L 63 Respiratory Rate 20 Blood Pressure 115/52 L Pulse Oximetry 100 100 09/25/21 04:00 09/25/21 06:00 09/25/21 07:49 Temperature 97.8 F Pulse Rate 61 54 L Respiratory Rate 20 Blood Pressure 111/79 Pulse Oximetry 100 97 09/25/21 07:52 09/25/21 08:00 09/25/21 08:48 Temperature 97.9 F Pulse Rate 73 81 77 Respir
[2021-09-25] MEDS: MONTELUKAST SODIUM 10 MG TABLET PO (20:50)
[2021-09-25] MEDS: PANTOPRAZOLE 40 MG TABLET PO (20:50)
[2021-09-25] MEDS: ROSUVASTATIN 10 MG TABLET 40 MG PO (20:51)
[2021-09-26] VITALS (27 sets, daily range): BP systolic 100–150; BP diastolic 46–88; PULSE 50–84; RESP 13–20; TEMP 35.9–36.8; O2SAT 96–100
[2021-09-26 05:55] LABS: Basophils Percent Auto 0.2 % (0.2-1.2); Eosinophils Absolute Auto 0.2 K/mm3 (0-0.3); Eosinophils Percent Auto 2.3 % (0-4.4); Hematocrit 42.3 % (42.0-52.0); Hemoglobin 13.7 g/dL (14.0-18.0); Immature Granulocyte Absolute 0.02 K/mm3 (0.00-0.031); Immature Granulocyte Percent A 0.3 % (0-0.5); Lymphocytes Absolute Auto 2.03 K/mm3 (0.9-3.2); Lymphocytes Percent Auto 31.6 % (18.3-44.2); Mean Corpuscular HGB Conc 32.4 g/dl (32-36); Mean Corpuscular Hemoglobin 30.3 pg (26-34); Mean Corpuscular Volume 93.6 fl (80-100); Mean Platelet Volume 9.7 fl (7.4-10.4); Monocytes Absolute Auto 0.5 K/mm3 (0.1-0.6); Monocytes Percent Auto 8.2 % (2.6-8.5); Neutrophils Absolute Auto 3.7 K/mm3 (1.3-6.7); Neutrophils Percent Auto 57.4 % (45.5-73.1); Platelet Count Result 146 k/mm3 (150-375); Red Blood Count 4.52 M/mm3 (4.6-6.20); Red Cell Distribution Width 14.5 % (11.5-14.5); White Blood Count 6.4 K/mm3 (4.5-10.0)
[2021-09-26 06:08] LABS: Alanine Aminotransferase 31 U/L (6-50); Albumin Level 3.8 g/dL (3.5-5.1); Alkaline Phosphatase 58 U/L (38-126); Anion Gap 9 mmol/L (8-16); Aspartate Amino Transferase 32 U/L (17-59); Bilirubin,Total 0.6 mg/dL (0.2-1.3); Blood Urea Nitrogen 15 mg/dL (9-20); Calcium 8.8 mg/dL (8.4-10.2); Carbon Dioxide 27 mmol/L (22-30); Chloride 104 mmol/L (98-107); Estimated CRCL calculation 111 ml/min; Estimated Glomerular Filt Rate > 60; Glucose 100 mg/dL (65-110); Magnesium 1.9 mg/dL (1.6-2.3); Potassium 3.8 mmol/L (3.4-5.0); Sodium 140 mmol/L (137-145)
[2021-09-26] MEDS: FLUTICASONE/SALMETEROL 115-21 MCG INHALER 1 PUFF 2 PUFF INHALATION ×2 (07:52→20:53)
[2021-09-26] MEDS: ASPIRIN 81 MG ENTERIC TABLET PO ×2 (08:18→19:52)
[2021-09-26] MEDS: CLOPIDOGREL BISULFATE 75 MG TABLET PO (08:18)
[2021-09-26] MEDS: METOPROLOL TARTRATE 50 MG TAB 100 MG PO ×2 (08:18→19:52)
[2021-09-26] MEDS: LOSARTAN POTASSIUM 50 MG TABLET PO (08:18)
[2021-09-26] MEDS: allopurinoL 300 MG TABLET PO (08:18)
[2021-09-26] MEDS: FUROSEMIDE 20 MG TABLET PO (08:18)
--- NOTE | 2021-09-26 08:22 | PM.IMPN ---
Progress Note: A&P Assessment and Plan (1) Chest pain: Qualifiers: Chest pain type: unspecified Qualified Code(s): R07.9 - Chest pain, unspecified Code(s): R07.9 - Chest pain, unspecified Status: Acute Assessment and Plan: -Pt with history of stent implantation to the diagonal branch [address]-elevation [place] June 2020 status post 3.0 x 30 mm Orsiro SASKIA to OM off Cx. Troponins x3 WNL, CXR normal, EKG showing baseline wander and sinus tachycardia. last echo from 06/27 -Scheduled for angiogram today -Further recommendations per cardiology (2) Coronary artery disease: Code(s): I25.10 - Atherosclerotic heart disease of [place] coronary artery without angina pectoris Status: Chronic Assessment and Plan: -Continue aspirin/plavix. -Continue antihypertensive regimen with metoprolol/Losartan. -Angiogram today (3) SHELBIE (obstructive sleep apnea): Code(s): G47.33 - Obstructive sleep apnea (adult) (pediatric) Status: Chronic Assessment and Plan: -Continue CPAP at nighttime. (4) GERD (gastroesophageal reflux disease): Code(s): K21.9 - Gastro-esophageal reflux disease without esophagitis Status: Acute Assessment and Plan: -Continue PPI Subjective Date/time seen: 09/26/21 08:22 Interval history: This is a 70-year-old male with past medical history significant for coronary artery disease, status post stent placement, obstructive sleep apnea uses CPAP at nighttime, hypertension, gastroesophageal reflux disease, morbid obesity, dementia, admitted for chest pain. Pt is currently asymptomatic with no complaints. No cp/sob. Some mild LE edema which he states is chronic. He is scheduled for angiography this morning. Review of Systems Review of Systems: All systems reviewed & are unremarkable except as noted in HPI and below Exam Narrative: GENERAL APPEARANCE: Alert and oriented x 3, in no apparent distress. HEENT: PERRL. Sclerae anicteric. Moist mucous membranes. NECK: Supple. RESPIRATORY: Respirations are nonlabored. Breath sounds are equal and clear bilaterally. No wheezes, Rhonchi, or rales. CARDIOVASCULAR: Regular rate and rhythm with normal S1-S2. No murmurs, gallops, or rubs. GASTROINTESTINAL: Soft, flat, and benign. No mass, tenderness, guarding, or rebound. Bowel sounds are present. SKIN: Warm, dry, well perfused. Good turgor. No lesions, nodules, or rashes noted. EXTREMITIES: 1+ edema BLE, no ttp NEUROLOGICAL: Alert. Cranial nerves 2-12 are grossly intact. No gross focal deficits to casual conversation. PSYCHIATRIC: Pleasant and cooperative with normal mood and affect. Objective Data Vital Signs Vital Signs: Vital Signs - 24 hr 09/25/21 08:48 09/25/21 10:00 09/25/21 11:51 Temperature 97.2 F L Pulse Rate 77 95 64 Respiratory Rate 16 Blood Pressure 125/54 L Pulse Oximetry 99 09/25/21 12:00 09/25/21 14:00 09/25/21 16:00 Temperature 97.6 F Pulse Rate 66 60 59 L Respiratory Rate 20 Blood Pressure 124/67 Pulse Oximetry 100 09/25/21 18:00 09/25/21 20:00 09/25/21 20:21 Temperature 97.7 F Pulse Rate 67 70 Respiratory Rate 18 Blood Pressure 139/61 Pulse Oximetry 98 98 09/25/21 20:51 09/25/21 22:00 09/26/21 00:00 Temperature 96.7 F L Pulse Rate 69 76 50 L Respiratory Rate 20 Blood Pressure 100/73 Pulse Oximetry 100 09/26/21 02:00 09/26/21 04:00 09/26/21 06:00 Temperature 97.6 F Pulse Rate 62 69 70 Respiratory Rate 18 Blood Pressure 116/56 L Pulse Oximetry 96 Intake/Output Intake/Output: Intake & Output 09/23/21 09/24/21 09/25/21 09/26/21 23:59 23:59 23:59 23:59 Intake Total 650 1320 1746 225 Output Total 1900 1200 1100 450 Balance -1250 120 646 -225 Meds/Results Medications: Active Medications Generic Name Dose Route Start Last Admin Trade Name Freq PRN Reason Stop Do
--- NOTE | 2021-09-26 09:10 | WPDMODSED ---
Moderate Sedation Note-Pt Data Patient Data Diagnosis: Coronary artery disease with previous PCI to the diagonal and circumflex OM recurrent exertional symptoms suggestive of angina Present Complaint: exertional chest pain Procedure to be performed/Plan: left heart catheterization Allergies Allergy/AdvReac Type Severity Reaction Status Date / Time morphine Allergy Mild vomiting Verified 09/22/21 19:34 Home Medications Medication Instructions Recorded Confirmed Type Men's Multivitamin 1 tablet PO DAILY 06/16/20 09/23/21 History ProAir RespiClick 2 inh INHALATION Q6H PRN 06/16/20 09/23/21 History allopurinol 300 mg PO DAILY 06/16/20 09/23/21 History ascorbate calcium (vitamin C) 500 mg PO BID #0 06/16/20 09/23/21 History aspirin 81 mg PO Q12H 06/16/20 09/23/21 History fluticasone propionate 2 spray INTRANASAL BID PRN 06/16/20 09/23/21 History furosemide 20 mg PO DAILY 06/16/20 09/23/21 History metoprolol tartrate 100 mg PO Q12H 06/16/20 09/23/21 History montelukast 10 mg PO HS 06/16/20 09/23/21 History nitroglycerin 0.4 mg SUBLINGUAL Q5M PRN 06/16/20 09/23/21 History omeprazole 20 mg PO HS 06/16/20 09/23/21 History rosuvastatin 40 mg PO HS 06/16/20 09/23/21 History clopidogrel 75 mg PO DAILY 30 Days #30 tablet 06/18/20 09/23/21 Rx losartan 50 mg PO DAILY #0 tablet 06/18/20 09/23/21 Rx Dulera 2 inh INHALATION BID 08/25/20 09/23/21 History ergocalciferol (vitamin D2) 1,250 mcg PO WEEKLY 09/23/21 09/23/21 History ergocalciferol (vitamin D2) 50 mcg PO DAILY 09/23/21 09/23/21 History Current Medications: Active Medications Albuterol (Albuterol Sulfate (*Sp) Aerosol 1 Puff) 2 puff INHALATION Q6H PRN PRN Reason: Shortness Of Breath Or Wheezing Allopurinol (Allopurinol 300 Mg Tablet) 300 mg PO DAILY [facility] Last Admin: 09/26/21 08:18 Dose: 300 mg Documented by: Aspirin (Aspirin 81 Mg Enteric Tablet) 81 mg PO Q12HR [facility] Last Admin: 09/26/21 08:18 Dose: 81 mg Documented by: Clopidogrel Bisulfate (Clopidogrel Bisulfate 75 Mg Tablet) 75 mg PO DAILY [facility] Last Admin: 09/26/21 08:18 Dose: 75 mg Documented by: Furosemide (Furosemide 20 Mg Tablet) 20 mg PO DAILY [facility] Last Admin: 09/26/21 08:18 Dose: 20 mg Documented by: Losartan Potassium (Losartan Potassium 50 Mg Tablet) 50 mg PO DAILY [facility] Last Admin: 09/26/21 08:18 Dose: 50 mg Documented by: Metoprolol Tartrate (Metoprolol Tartrate 50 Mg Tab) 100 mg PO Q12HR [facility] Last Admin: 09/26/21 08:18 Dose: 100 mg Documented by: Montelukast Sodium (Montelukast Sodium 10 Mg Tablet) 10 mg PO [facility] Last Admin: 09/25/21 20:50 Dose: 10 mg Documented by: Nitroglycerin (Nitroglycerin Sl 0.4 Mg Tablet) 0.4 mg SUBLINGUAL Q5MIN PRN PRN Reason: Chest Pain Pantoprazole Sodium (Pantoprazole 40 Mg Tablet) 40 mg PO [facility] Stop: 10/23/21 20:59 Last Admin: 09/25/21 20:50 Dose: 40 mg Documented by: Perflutren Lipid Microsphere (Perflutren Lipid Microspheres 1.5 Ml Vial Diluted To 10 Ml Total Volume) 0 ml IV PUSH ONCE PRN; Protocol PRN Reason: adequate visualization Rosuvastatin Calcium (Rosuvastatin 10 Mg Tablet) 40 mg PO [facility] Last Admin: 09/25/21 20:51 Dose: 40 mg Documented by: Fluticasone/Salmeterol (Fluticasone/Salmeterol 115-21 Mcg Inhaler 1 Puff) 2 puff INHALATION Q12HRT [facility] Last Admin: 09/26/21 07:52 Dose: 2 puff Documented by: Sedation/Anesthesia: No previous sedation/anesthesia problems (including family history). [facility] Past Medical History Medical History (Updated 09/23/21 @ 05:25 by Nupur Juan MD) Coronary artery disease History of diagonal [place] [address] Riddle Essential hypertension GERD (gastroesophageal reflux disease) Gout Hyperlipidemia SHELBIE (obstructive sleep apnea) Prediabetes Surgical History Surgical History Hx of tonsillectomy Plantar fasciitis Previous back surgery Family History Family History Father Dec
--- NOTE | 2021-09-26 09:58 | WPDCARDPROC ---
Cardiac Cath Procedure Note Date of procedure:: 09/26/21 Performing physician:: Sonu Mclean MD Indication:: exertional chest pain Brief clinical history:: this is a 70-year-old man with coronary disease who has previously undergone PCI of the diagonal branch of his LAD as well as of the circumflex into OM branch. He entered the hospital with recurrence of exertional chest pain suggestive of angina. Procedure Procedure performed:: Left ventriculogram coronary angiogram Sedation/Medication given:: Versed 2 mg Case start time 9:36 a.m. case end time 9:57 a.m. sedation provided by Amy Souza RN, trained observer Access site:: right femoral artery Estimated blood loss:: 20 cc Procedure note:: patient was brought to the cardiac catheterization lab in the postabsorptive state the right femoral triangle was prepared and draped in the usual fashion. The right femoral artery was punctured Seldinger technique and a 5 [place] vascular sheath was placed. After this left heart catheterization was carried out. A 5 [place] angled pigtail catheter was used to measure left sided hemodynamics and to inject LV g in the ROBERTSON projection. Following this I engaged injected the left coronary artery in multiple projections using a 5 [place] FL4 catheter. The 5 [place] JR4 catheter to engage and inject the right coronary artery. After this the cineangiograms were reviewed. I did perform an angiogram of the femoral artery through the sheath and determined to have the sheath removed with direct manual compression. The. Patient tolerated the procedure well there were no apparent complications. Findings:: Hemodynamics: central aortic pressure is 120 over 58 left ventricle 124 over for end-diastolic pressure 16 there is no significant gradient on pullback across the aortic valve. Left ventricle: The LV is normal in size all segments contract vigorously the global ejection fraction of visually estimated to be 70%. The left main coronary artery is medium in caliber and nicely patent the left anterior descending is a medium caliber vessel extending down to the apex. The apical portion of the LAD is relatively small. There is visible stent material in the ostium of the major diagonal branch which remains patent with no significant loss of lumen. There is about 50% stenosis in the LAD at the site of this diagonal branch taking off. Angiographically this appears to be unchanged compared to last year. Circumflex is a moderate caliber artery giving rise to 1 large marginal branch and a posterior branch. The large marginal branch has visible stent material from last year. The stented area remains widely patent with no loss of lumen. The posterior branch has [id number] diffuse disease angiographically unchanged to previous exam. The right coronary artery is large in caliber and dominant to the posterior circulation. The trunk of the right coronary artery is nicely patent. There is some atherosclerosis at the distal bifurcation with about 50-60% stenosis in the distal RCA and then 70-80% stenosis in the origin of the RPL branch. Angiographically this also is unchanged compared to films from last year. Conclusion:: 1. Vigorous left ventricular systolic function 2. previously stented sites in the diagonal branch of the LAD from 2007 and the circumflex OM1 remain nicely patent 3. distal circumflex disease, mid LAD disease and RPL disease which are moderate in severity and are angiographically unchanged compared to last year. 4. Recommend intensification of medical therapy. If patient remains symptomatic PCI of the distal RCA bifurcation as well as the mid LAD lesions could be considered but once again this disease angiographically is unchanged compared to last year. Sonu Mclean MD FACC
[2021-09-26] MEDS: SODIUM CHLORIDE 0.9% IV 1,000 ML 125 ML IV CONT (12:11)
[2021-09-26] MEDS: NITROGLYCERIN SL 0.4 MG TABLET SUBLINGUAL (14:16)
[2021-09-26] MEDS: ISOSORBIDE MONONITRATE 60 MG TAB.ER.24H PO (14:48)
[2021-09-26] MEDS: PANTOPRAZOLE 40 MG TABLET PO (19:52)
[2021-09-26] MEDS: MONTELUKAST SODIUM 10 MG TABLET PO (19:52)
[2021-09-26] MEDS: ROSUVASTATIN 10 MG TABLET 40 MG PO (19:52)
[2021-09-27] VITALS (8 sets, daily range): BP systolic 119–129; BP diastolic 63–83; PULSE 52–86; RESP 16–22; TEMP 36.3–36.7; O2SAT 97–100
[2021-09-27 05:59] LABS: Anion Gap 6 mmol/L (8-16); Blood Urea Nitrogen 15 mg/dL (9-20); Calcium 8.1 mg/dL (8.4-10.2); Carbon Dioxide 27 mmol/L (22-30); Chloride 102 mmol/L (98-107); Estimated CRCL calculation 111 ml/min; Estimated Glomerular Filt Rate > 60; Glucose 100 mg/dL (65-110); Potassium 3.9 mmol/L (3.4-5.0); Sodium 135 mmol/L (137-145)
[2021-09-27 06:43] LABS: Basophils Percent Auto 0.1 % (0.2-1.2); Eosinophils Absolute Auto 0.1 K/mm3 (0-0.3); Eosinophils Percent Auto 1.5 % (0-4.4); Hematocrit 37.5 % (42.0-52.0); Hemoglobin 12.4 g/dL (14.0-18.0); Immature Granulocyte Absolute 0.03 K/mm3 (0.00-0.031); Immature Granulocyte Percent A 0.4 % (0-0.5); Lymphocytes Absolute Auto 1.88 K/mm3 (0.9-3.2); Lymphocytes Percent Auto 25.6 % (18.3-44.2); Mean Corpuscular HGB Conc 33.1 g/dl (32-36); Mean Corpuscular Hemoglobin 30.6 pg (26-34); Mean Corpuscular Volume 92.6 fl (80-100); Monocytes Absolute Auto 0.5 K/mm3 (0.1-0.6); Monocytes Percent Auto 7.4 % (2.6-8.5); Neutrophils Absolute Auto 4.8 K/mm3 (1.3-6.7); Platelet Count Result 131 k/mm3 (150-375); Red Blood Count 4.05 M/mm3 (4.6-6.20); Red Cell Distribution Width 14.3 % (11.5-14.5); White Blood Count 7.3 K/mm3 (4.5-10.0)
[2021-09-27] MEDS: FLUTICASONE/SALMETEROL 115-21 MCG INHALER 1 PUFF 2 PUFF INHALATION (08:04)
[2021-09-27] MEDS: ISOSORBIDE MONONITRATE 60 MG TAB.ER.24H PO (08:28)
[2021-09-27] MEDS: ASPIRIN 81 MG ENTERIC TABLET PO (08:28)
[2021-09-27] MEDS: CLOPIDOGREL BISULFATE 75 MG TABLET PO (08:28)
[2021-09-27] MEDS: allopurinoL 300 MG TABLET PO (08:28)
[2021-09-27] MEDS: METOPROLOL TARTRATE 50 MG TAB 100 MG PO (08:28)
[2021-09-27] MEDS: LOSARTAN POTASSIUM 50 MG TABLET PO (08:29)
[2021-09-27] MEDS: FUROSEMIDE 20 MG TABLET PO (08:29)
--- NOTE | 2021-09-27 09:45 | PM.DS ---
DS: Admitting Diagnosis Discharge Date 09/27/2021 1211 Admitting Diagnosis Chest pain DS: Discharge Diagnosis Discharge Diagnosis (1) Coronary artery disease: Qualifiers: Coronary Disease-Associated Artery/Lesion type: [place] artery [place] vs. transplanted heart: [place] heart Associated angina: with unspecified form of angina Qualified Code(s): I25.119 - Atherosclerotic heart disease of [place] coronary artery with unspecified angina pectoris Code(s): I25.10 - Atherosclerotic heart disease of [place] coronary artery without angina pectoris Status: Chronic (2) Essential hypertension: Code(s): I10 - Essential (primary) hypertension Status: Chronic (3) Hyperlipidemia: Code(s): E78.5 - Hyperlipidemia, unspecified Status: Chronic (4) SHELBIE (obstructive sleep apnea): Code(s): G47.33 - Obstructive sleep apnea (adult) (pediatric) Status: Chronic Assessment and Plan: -Continue CPAP at nighttime. (5) GERD (gastroesophageal reflux disease): Code(s): K21.9 - Gastro-esophageal reflux disease without esophagitis Status: Acute DS: Summary Hospital Course Reason for hospitalization: Chest pain Hospital Course: Pierre Blanco is a 70-year-old male with past medical history significant for coronary artery disease status post stent placement x2, obstructive sleep apnea compliant with CPAP, hypertension, gastroesophageal reflux disease, morbid obesity, and dementia.? He presented to the emergency room with his for evaluation of chest pain. The patient was precordial with radiation to the arm, progressively worsening and occurred while he was doing some minimal exertion activity.? Patient denied shortness of breath, palpitations, cough, fevers, chills, sputum production, nausea, vomiting, abdominal pain, bilateral lower extremity swelling, no dizziness, no lightheadedness, no syncope, no near syncope.? Preliminary workup was significant for ECG with sinus tachycardia.? He was admitted for further cardiac evaluation. Telemetry was monitored without arrhythmia or ectopy noted. Cardiac enzymes were negative. Cardiology was consulted and recommended angiography to rule out coronary blockages. He underwent angiography on 09/26/21 that demonstrated vigorous LV systolic function, patent LAD and circumflex OM1 stents, moderate CAD to distal circumflex, mid-LAD, and RPL unchanged from June 2020 catheterization. Intensivized medical therapy was recommended. He was continued on aspirin 81 mg BID, plavix 75 mg daily, metoprolol tartrate 100 mg BID, losartan 50 mg daily, rosuvastatin 40 mg daily and Imdur 60 mg. He was monitored for 24 hours post-procedure. No hematoma or complications were noted to right femoral region. He was counseled on medication changes, diet, physical activity and when to see further medical attention. He was discharged home in stable condition and without chest pain. Status at Discharge Cognitive/behavioral status at discharge: AAOx4. Functional status at discharge: independent ambulation Overall status at discharge: patient is back to baseline Time Spent with Patient Time attestation: Total time spent providing and/or coordinating discharge services: Time spent: Greater than 30 minutes Exam Narrative: GENERAL APPEARANCE: in no apparent distress. HEENT: PERRL. Sclerae anicteric. Moist mucous membranes. [place] NECK: Supple. No JVD RESPIRATORY: Respirations even and unlabored. Breath sounds are equal and clear bilaterally. No wheezes, Rhonchi, or rales. CARDIOVASCULAR: Regular rate and rhythm with normal S1-S2. No murmurs, gallops, or rubs. GASTROINTESTINAL: Soft, protuberant/obese, and benign. No mass, tenderness, guarding, or rebound. Bowel sounds are present. SKIN: Warm, dry, well perfused. Good turgor. No lesions, nodules, or rashes noted. Right groin with gauze & tegaderm dressing clean, dry and intact. EXTREMITIES: 1+ edema BLE, no ttp
--- NOTE | 2021-09-27 09:57 | PM.PNCARD ---
Progress Note: A&P Assessment and Plan (1) Coronary artery disease: Code(s): I25.10 - Atherosclerotic heart disease of [place] coronary artery without angina pectoris Status: Chronic Assessment and Plan: History of CAD with previous stents to the LAD and LXC OM1. Presented with chest pain and the decision was made to take patient to the construction or [facility] for coronary angiogram. Findings and recommendations are as follows: 1.? ? Vigorous left ventricular systolic function 2. ? previously stented sites in the diagonal branch of the LAD from 2006 and the circumflex OM1 remain nicely patent 3. ? distal circumflex disease, mid LAD disease and RPL disease which are moderate in severity and are angiographically unchanged compared to last year. 4.? ? Recommend intensification of medical therapy.? If patient remains symptomatic PCI of the distal RCA bifurcation as well as the mid LAD lesions could be considered but once again this disease angiographically is unchanged compared to last year. Isosorbide was added to his medical regimen Continue aspirin Continue statin Continue metoprolol Continue Plavix Okay for discharge home today from a cardiac perspective. Close outpatient follow-up. (2) Essential hypertension: Code(s): I10 - Essential (primary) hypertension Status: Chronic Assessment and Plan: At goal. (3) Hyperlipidemia: Code(s): E78.5 - Hyperlipidemia, unspecified Status: Chronic Assessment and Plan: Continue statin. (4) SHELBIE (obstructive sleep apnea): Code(s): G47.33 - Obstructive sleep apnea (adult) (pediatric) Status: Chronic Subjective Date/time seen: 09/27/21 09:57 Interval history: Cardiology follow up for CAD,chest pain Review of Systems Constitutional: Constitutional: Reports no additional constitutional complaints Eyes: Eyes: Reports no additional eye complaints ENT: Reports system reviewed and no additional complaints, except as documented Cardiovascular: Cardiovascular: Reports as per HPI Respiratory: Respiratory: Reports no additional respiratory complaints Gastrointestinal: Gastrointestinal: Reports no additional gastrointestinal complaints Musculoskeletal: Musculoskeletal: Reports no additional musculoskeletal complaints Integumentary/Breasts: Skin/Breast: Reports system reviewed and no additional complaints, except as docu Endocrine: Endocrine: Reports no additional endocrine complaints Hematologic/Lymphatic: Hematologic/Lymphatic: Reports no additional hematologic/lymphatic complaints Allergic/Immunologic: Allergic/Immunologic: Reports no additional allergic/immunologic complaints Exam Const: General: comfortable and no acute distress Other: Pleasant obese gentleman no distress HENMT: Mouth: Yes moist mucous membranes Eyes: Sclera: sclerae normal Pupils: Equal, round and reactive pupils present Neck: Neck: supple and no JVD Resp: Effort & Inspection: normal respiratory effort Auscultation: clear to auscultation bilaterally Cardio: Rate: regular rate Rhythm: regular rhythm Heart sounds: no murmurs GI: Auscultation: normal bowel sounds Skin: General skin exam: normal color Other: Right groin arterial access site free from bleeding, hematoma, bruit Neuro: Cranial nerves: Yes Equal, round and reactive pupils present Cognition (Neuro): normal cognition Extrem: General: normal to inspection Objective Data Vital Signs Vital Signs: Vital Signs - 24 hr 09/26/21 10:15 09/26/21 10:15 09/26/21 10:35 Temperature Pulse Rate 57 L Pulse Rate [Bilateral Pedal (Dorsalis Pedis) Palpation] 55 L 58 L Respiratory Rate 16 Blood Pressure 119/67 Pulse Oximetry 97 Oxygen Delivery Room Air 09/26/21 10:35 09/26/21 10:40 09/26/21 10:45 Temperature Pulse Rate 58 L 57 L 56 L Pulse Rate [Bilateral Pedal (Dorsalis Pedis) Palpation] Respiratory Rate 14 13 14 Blood Pressure 134/80 129/67 130/70 P
== END 2021-09-27 12:35 | disposition home or self-care (01) | DRG 287 ==
LOC: ANHED 21:10 → ANHIMU 23:24
PROVIDERS: Nurse Practitioner Adult Health; Physician Assistant; Specialist; Student in an Organized Health Care Education/Training Program; Admitting Provider Internal Medicine; Emergency Provider Emergency Medicine; Visit Provider Nurse Practitioner Family
PROC: 4A023N7 Measurement of Cardiac Sampling and Pressure, Left Heart, Percutaneous Approach (ICD-10-PCS; CPT 93452; principal; 2021-09-26 10:00)
DX: I25.10 Atherosclerotic heart disease of native coronary artery without angina pectoris (principal); Z68.41 Body mass index [BMI] 40.0-44.9, adult; R00.0 Tachycardia, unspecified; I42.2 Other hypertrophic cardiomyopathy; I10 Essential (primary) hypertension; Z20.822 Contact with and (suspected) exposure to COVID-19; K21.9 Gastro-esophageal reflux disease without esophagitis; E78.5 Hyperlipidemia, unspecified; G47.33 Obstructive sleep apnea (adult) (pediatric); R73.03 Prediabetes; E66.01 Morbid (severe) obesity due to excess calories; F03.90 Unspecified dementia, unspecified severity, without behavioral disturbance, psychotic disturbance, mood disturbance, and anxiety; Z79.82 Long term (current) use of aspirin; Z95.5 Presence of coronary angioplasty implant and graft; I25.2 Old myocardial infarction
CPT/HCPCS: 36415; 71046; 80048; 80053; 83690; 83735; 84443; 84484; 85025; 85380; 85610; 85730; 93005; 93458; 94640; 99285; A9270; C1887; C1894; C9803; G0378; J1644; J2250; J3010; J7030; J7040; U0003; U0005

== ENCOUNTER 2022-05-28 15:34 | Emergency (ER) | payer MEDICARE, OTHER, SELFPAY ==
--- NOTE | ~2022-05-28 | XR_ITS ---
EXAMINATION: XR chest 2V Exam Date/Time: 05/28/2022 17:00 ALLERGY AND IMMUNOLOGY CHIEF HISTORY: Left side chest discomfort, dizziness x today. Hx htn, cad Comparison: 09/22/2021. RESULT: Lines, tubes, and devices: None. Lungs and pleura: Senescent change. Low volumes. Mild right costophrenic angle blunting. Minimal rig ht basilar atelectasis/scar. Cardiomediastinal silhouette: Stable. Other: No acute osseous or upper abdominal finding. Old right rib fractures. IMPRESSION: Small right pleural effusion. Reviewed, dictated and finalized at location [facility] IMMUNOLOGY CHIEF
[2022-05-28 15:38] VITALS: BP 140/68; PULSE 18; RESP 18; TEMP 36.9; O2SAT 100
--- NOTE | 2022-05-28 15:56 | ECG_ITS ---
Measurements Intervals [place] Rate: 54 P: -1 DE: 155 QRS: 43 QRSD: 97 T: 52 QT: 487 QTc: 462 Interpretive Statements SINUS BRADYCARDIA BASELINE ARTIFACT- I, III BORDERLINE ECG COMPARED TO ECG 09/22/2021 19:31:34 SINUS BRADYCARDIA NOW PRESENT Electronically Signed On 05-29-2022 7:39:57 CARDIOVASCULAR SONOGRAPHER by Juan Manuel Flynn D.O.
[2022-05-28] MEDS: ONDANSETRON INJ 4 MG/2 ML VIAL IV PUSH (16:38)
[2022-05-28 16:43] VITALS: BP 122/85; PULSE 54; RESP 20; O2SAT 97
--- NOTE | 2022-05-28 16:50 | ED.NAVMDI ---
HPI - Nausea/Vomiting/Diarrhea General Chief complaint: Nausea/Vomiting/Diarrhea Stated complaint: Dizzy, N/V - sudden onset 2 hours ago Time Seen by Provider: 05/28/22 15:38 History of Present Illness HPI Narrative: Patient is a 71-year-old male who presents to the ER with sudden onset dizziness with nausea and vomiting. Associated with diaphoresis. Worse when goes from sitting. He has not had no symptoms of blood. Notably. Tach resolved sitting still. 1 hour ago we then started laughing some left-sided chest pain. Does have history of cardiac stenting. Cannot describe the quality of this pain. Patient does have some mild dementia but does a decent job answering questions with the help of his . Related Data Home Medications Medication Instructions Recorded Confirmed albuterol sulfate 90 mcg/actuation 2 inh inhalation Q6H PRN Shortness 06/16/20 09/23/21 breath activated powder inhaler Of Breath Or Wheezing (ProAir RespiClick) allopurinol 300 mg tablet 300 mg PO DAILY 06/16/20 09/23/21 ascorbate calcium (vitamin C) 500 500 mg PO BID ##0 06/16/20 09/23/21 mg tablet aspirin 81 mg tablet,delayed 81 mg PO Q12H 06/16/20 09/23/21 release fluticasone propionate 50 2 spray intranasal BID PRN 06/16/20 09/23/21 mcg/actuation nasal Congestion spray,suspension furosemide 20 mg tablet 20 mg PO DAILY 06/16/20 09/23/21 metoprolol tartrate 100 mg tablet 100 mg PO Q12H 06/16/20 09/23/21 montelukast 10 mg tablet 10 mg PO HS 06/16/20 09/23/21 ariwfxmg-ijcdfsvs-kfvqb acid 400 1 tablet PO DAILY 06/16/20 09/23/21 mcg-vit K 20 mcg-lycop 300 mcg tablet (Men's Multivitamin) nitroglycerin 0.4 mg sublingual 0.4 mg sublingual Q5M PRN Chest 06/16/20 09/23/21 tablet Pain omeprazole 20 mg tablet,delayed 20 mg PO HS 06/16/20 09/23/21 release rosuvastatin 40 mg tablet 40 mg PO HS 06/16/20 09/23/21 mometasone-formoterol HFA 50 mcg-5 2 inh inhalation BID 08/25/20 09/23/21 mcg/actuation aerosol inhaler (Dulera) ergocalciferol (vitamin D2) 1,250 1,250 mcg PO WEEKLY 09/23/21 09/23/21 mcg (50,000 unit) capsule Allergies Allergy/AdvReac Type Severity Reaction Status Date / Time morphine Allergy Mild vomiting Verified 05/28/22 15:47 Review of Systems Review of Systems: All systems reviewed & are unremarkable except as noted in HPI and below Constitutional: Constitutional: Denies chills, Denies fatigue and Denies fever(s) ENT: Reports vertigo, Denies nasal congestion and Denies sore throat Cardiovascular: Cardiovascular: Reports chest pain, Denies rapid heart rate and Denies radiating jaw, neck or arm pain Respiratory: Respiratory: Denies cough and Denies dyspnea Gastrointestinal: Gastrointestinal: Denies abdominal pain, Denies nausea and Denies vomiting Neurologic: Denies syncope, Denies focal weakness and Denies numbness PMFSH Past Medical History Medical History (Updated 05/28/22 @ 18:27 by Naveen Lozano MD) Coronary artery disease History of diagonal [place] [address] Riddle Essential hypertension GERD (gastroesophageal reflux disease) Gout Hyperlipidemia SHELBIE (obstructive sleep apnea) Prediabetes Surgical History Surgical History Hx of tonsillectomy Plantar fasciitis Previous back surgery Family History Family History Father Heart disease of 3rd heart attack age 56 Mother Heart disease History of valve replacement Cerebral hemorrhage Sounds like she might of had an intracranial hemorrhage, related to warfarin? 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 He lives with de
[2022-05-28 17:08] LABS: Basophils Percent Auto 0.1 % (0.2-1.2); Eosinophils Percent Auto 0.4 % (0-4.4); Hematocrit 43.6 % (42.0-52.0); Hemoglobin 14.3 g/dL (14.0-18.0); Immature Granulocyte Absolute 0.04 K/mm3 (0.00-0.031); Immature Granulocyte Percent A 0.4 % (0-0.5); Lymphocytes Absolute Auto 1.37 K/mm3 (0.9-3.2); Lymphocytes Percent Auto 15.2 % (18.3-44.2); Mean Corpuscular HGB Conc 32.8 g/dl (32-36); Mean Corpuscular Hemoglobin 30.3 pg (26-34); Mean Corpuscular Volume 92.4 fl (80-100); Mean Platelet Volume 9.7 fl (7.4-10.4); Monocytes Absolute Auto 0.4 K/mm3 (0.1-0.6); Monocytes Percent Auto 4.4 % (2.6-8.5); Neutrophils Absolute Auto 7.1 K/mm3 (1.3-6.7); Neutrophils Percent Auto 79.5 % (45.5-73.1); Platelet Count Result 145 k/mm3 (150-375); Red Blood Count 4.72 M/mm3 (4.6-6.20); Red Cell Distribution Width 14.6 % (11.5-14.5)
[2022-05-28 17:19] LABS: INR 1.1; Prothrombin Time 13.3 Seconds (11.1-14.7)
[2022-05-28 17:20] LABS: Partial Thromboplastin Time 25.9 SECONDS (22.3-36.8)
[2022-05-28 17:22] LABS: Alanine Aminotransferase 35 U/L (6-50); Albumin Level 4.2 g/dL (3.5-5.1); Alkaline Phosphatase 60 U/L (38-126); Anion Gap 6 mmol/L (8-16); Aspartate Amino Transferase 31 U/L (17-59); Bilirubin,Total 0.6 mg/dL (0.2-1.3); Blood Urea Nitrogen 19 mg/dL (9-20); Calcium 8.5 mg/dL (8.4-10.2); Carbon Dioxide 30 mmol/L (22-30); Chloride 101 mmol/L (98-107); Estimated Glomerular Filt Rate > 60; Glucose 118 mg/dL (65-110); Potassium 4.5 mmol/L (3.4-5.0); Sodium 137 mmol/L (137-145)
[2022-05-28 17:33] LABS: Troponin I < 0.012 ng/mL (0.000-0.034)
[2022-05-28 18:47] VITALS: BP 143/68; PULSE 57; RESP 20; O2SAT 100
== END 2022-05-28 18:50 | disposition home or self-care (01) ==
PROVIDERS: Emergency Provider Emergency Medicine
DX: R42 Dizziness and giddiness (principal); R07.89 Other chest pain; I25.10 Atherosclerotic heart disease of native coronary artery without angina pectoris; I10 Essential (primary) hypertension; F03.90 Unspecified dementia, unspecified severity, without behavioral disturbance, psychotic disturbance, mood disturbance, and anxiety; E78.5 Hyperlipidemia, unspecified; R73.03 Prediabetes; K21.9 Gastro-esophageal reflux disease without esophagitis; M10.9 Gout, unspecified; G47.33 Obstructive sleep apnea (adult) (pediatric); Z95.5 Presence of coronary angioplasty implant and graft; Z79.82 Long term (current) use of aspirin; R00.1 Bradycardia, unspecified
CPT/HCPCS: 36415; 71046; 80053; 84484; 85025; 85610; 85730; 93005; 99284; J2405

== ENCOUNTER 2024-01-22 00:45 | Emergency (ER) | payer MEDICARE, OTHER, SELFPAY ==
--- NOTE | ~2024-01-22 | CT_ITS ---
Non-contrast Head CT History: Dizziness Technique: Axial non-contrast imaging of the brain was performed. Dose reduction technique was used on this scan by utilizing automated exposure control and iterative reconstruction technique. The dose -length product (DLP) was 756.67 mGy-cm. Findings: There is no evidence of intracranial hemorrhage, mass lesion, or acute infarct. Brain par enchyma appears normal. The ventricles and subarachnoid spaces are normal in size. The calvarium ap pears normal. The visualized paranasal sinuses and mastoid air cells are clear. Impression: No significant abnormality seen. Reviewed, dictated and finalized at location . Impression: No significant abnormality seen.
--- NOTE | ~2024-01-22 | XR_ITS ---
Portable chest x-ray Comparison: 05/28/2022 Clinical History: Near syncope Findings: Lungs are clear, without focal consolidation or pleural effusion. Cardiomediastinal silho uette is stable. Bones and soft tissues are unremarkable. Impression: Clear lungs. Stable cardiomegaly. Reviewed, dictated and finalized at location . Impression: Clear lungs. Stable cardiomegaly.
[2024-01-22 00:47] VITALS: BP 100/88; PULSE 71; RESP 15; TEMP 36.1; O2SAT 98
--- NOTE | 2024-01-22 00:52 | ECG_ITS ---
Test Date: 2024-01-22 01:01:53 Measurements Intervals [place] Rate: 76 P: -8 [place]: 150 QRS: 47 QRSD: 110 T: 31 QT: 436 QTc: 491 Interpretive Statements SINUS RHYTHM PROLONGED QT INTERVAL BASELINE ARTIFACT- I, III, AVR, AVL, AVF ABNORMAL ECG No previous ECG available for comparison Electronically Signed On 01-22-2024 05:47:37 CDT by Juan Manuel Flynn D.O.
[2024-01-22 02:39] LABS: Basophils Percent Auto 0.1 % (0.2-1.2); Eosinophils Percent Auto 0.3 % (0-4.4); Hematocrit 44.8 % (42.0-52.0); Hemoglobin 15.1 g/dL (14.0-18.0); Immature Granulocyte Absolute 0.04 K/mm3 (0.00-0.031); Immature Granulocyte Percent A 0.4 % (0-0.5); Lymphocytes Absolute Auto 1.36 K/mm3 (0.9-3.2); Lymphocytes Percent Auto 14.2 % (18.3-44.2); Mean Corpuscular HGB Conc 33.7 g/dl (32-36); Mean Corpuscular Hemoglobin 32.1 pg (26-34); Mean Corpuscular Volume 95.3 fl (80-100); Mean Platelet Volume 9.2 fl (7.4-10.4); Monocytes Absolute Auto 0.4 K/mm3 (0.1-0.6); Monocytes Percent Auto 4.6 % (2.6-8.5); Neutrophils Absolute Auto 7.7 K/mm3 (1.3-6.7); Neutrophils Percent Auto 80.4 % (45.5-73.1); Platelet Count Result 133 k/mm3 (150-375); Red Cell Distribution Width 13.9 % (11.5-14.5); White Blood Count 9.6 K/mm3 (4.5-10.0)
[2024-01-22] MEDS: PROCHLORPERAZINE EDISYLATE 10 MG/2 ML VIAL IV PUSH (02:42)
[2024-01-22] MEDS: MECLIZINE HCL 25 MG TABLET PO (02:42)
[2024-01-22] MEDS: SODIUM CHLORIDE 0.9% IV 1,000 ML 999 ML IV CONT (02:42)
[2024-01-22 03:01] VITALS: BP 139/91; PULSE 73; RESP 14; TEMP 36.6; O2SAT 98
[2024-01-22 03:17] LABS: Lactic Acid Reflex 1.5 mmol/L (0.7-2.0)
[2024-01-22 03:19] LABS: Alanine Aminotransferase 30 U/L (6-50); Albumin Level 4.7 g/dL (3.5-5.1); Alkaline Phosphatase 64 U/L (38-126); Anion Gap 10 mmol/L (4-12); Aspartate Amino Transferase 30 U/L (17-59); Bilirubin,Total 0.5 mg/dL (0.2-1.3); Blood Urea Nitrogen 21 mg/dL (9-20); Calcium 9.3 mg/dL (8.4-10.2); Carbon Dioxide 30 mmol/L (22-30); Chloride 102 mmol/L (98-107); Estimated CRCL calculation 77 ml/min; Estimated Glomerular Filt Rate > 60; Glucose 125 mg/dL (65-110); Lipase 194 U/L (23-300); Potassium 3.9 mmol/L (3.4-5.0); Sodium 142 mmol/L (137-145)
[2024-01-22 03:20] LABS: Influenza A QL RT-PCR Negative (Negative); Influenza B QL RT-PCR Negative (Negative); RSV RNA, RT-PCR Negative (Negative); SARS-CoV-2 RNA PCR Negative (Negative)
[2024-01-22 03:30] LABS: Troponin I < 0.012 ng/mL (0.000-0.034)
--- NOTE | 2024-01-22 03:31 | ED.GENADULT ---
HPI - General Adult General Chief complaint: Syncope Stated complaint: GEN WKNS, N/V/D, DIZZY Time Seen by Provider: 01/22/24 00:47 History of Present Illness HPI narrative: Patient is a 73-year-old gentleman who presents emergency department with chief complaint of weakness. The patient states that he started feel weak and then noticed that the room was spinning and felt nauseated the patient reports that he had diaphoresis during his time felt clammy the patient denies shortness of breath denies recent illness patient did report that he had diarrhea with this. Related Data Home Medications Medication Instructions Recorded Confirmed albuterol sulfate 90 mcg/actuation 2 inh inhalation Q6H PRN Shortness 06/16/20 09/23/21 breath activated powder inhaler Of Breath Or Wheezing (ProAir RespiClick) allopurinol 300 mg tablet 300 mg PO DAILY 06/16/20 09/23/21 ascorbate calcium (vitamin C) 500 500 mg PO BID ##0 06/16/20 09/23/21 mg tablet aspirin 81 mg tablet,delayed 81 mg PO Q12H 06/16/20 09/23/21 release fluticasone propionate 50 2 spray intranasal BID PRN 06/16/20 09/23/21 mcg/actuation nasal Congestion spray,suspension furosemide 20 mg tablet 20 mg PO DAILY 06/16/20 09/23/21 metoprolol tartrate 100 mg tablet 100 mg PO Q12H 06/16/20 09/23/21 montelukast 10 mg tablet 10 mg PO HS 06/16/20 09/23/21 iowzedlo-gztgbyhc-emwtd acid 400 1 tablet PO DAILY 06/16/20 09/23/21 mcg-vit K 20 mcg-lycop 300 mcg tablet (Men's Multivitamin) nitroglycerin 0.4 mg sublingual 0.4 mg sublingual Q5M PRN Chest 06/16/20 09/23/21 tablet Pain omeprazole 20 mg tablet,delayed 20 mg PO HS 06/16/20 09/23/21 release rosuvastatin 40 mg tablet 40 mg PO HS 06/16/20 09/23/21 mometasone-formoterol HFA 50 mcg-5 2 inh inhalation BID 08/25/20 09/23/21 mcg/actuation aerosol inhaler (Dulera) ergocalciferol (vitamin D2) 1,250 1,250 mcg PO WEEKLY 09/23/21 09/23/21 mcg (50,000 unit) capsule benzonatate 100 mg capsule mg PO 01/22/24 clobetasol 0.05 % topical cream topical 01/22/24 donepezil 5 mg tablet mg 01/22/24 mometasone-formoterol HFA 100 inhalation 01/22/24 mcg-5 mcg/actuation aerosol inhaler (Dulera) Allergies Allergy/AdvReac Type Severity Reaction Status Date / Time morphine Allergy Mild vomiting Verified 05/28/22 15:47 [facility] Past Medical History Medical History (Updated 01/22/24 @ 05:31 by Harris Mukherjee MD) Coronary artery disease History of diagonal [place] [address] Riddle Essential hypertension GERD (gastroesophageal reflux disease) Gout Hyperlipidemia SHELBIE (obstructive sleep apnea) Prediabetes Surgical History Surgical History Hx of tonsillectomy Plantar fasciitis Previous back surgery Family History Family History Father Heart disease of 3rd heart attack age 56 Mother Heart disease History of valve replacement Cerebral hemorrhage Sounds like she might of had an intracranial hemorrhage, related to warfarin? 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 He lives with his , Keely Blanco, and his daughter and three grandchildren. He is a never smoker and reports no alcohol or illicit substance use. He wishes to be a modified code and would like CPR but does not want to be intubated. He has designated his , Keely Blanco, as his surrogate medical decision maker. Smoking status: Never smoker Second hand tobacco smoke exposure: No Alcohol intake: never Substance use: never Substance use type: does not use Living arrangements: with family Occupation/Education: re
[2024-01-22 04:57] LABS: Add Urine Microscopic? YES; Appearance Urine Clear (Clear); Bacteria Urine None Seen /hpf; Bilirubin Urine Negative (Negative); Blood Urine Negative (Negative); Color Urine Dark Yellow (Yellow); Glucose Urine UA Negative (Negative); Ketones Urine Trace mg/dL (Negative); Leukocyte Esterase Ur Negative LEU/UL (Negative); Nitrate Urine Negative (Negative); Non Pathogenic Casts 0-2; Protein Urine 1+ mg/dL (Negative); RBC Urine 0-2 /hpf (0-2); Specific Grav Ur 1.032 (1.001-1.035); Squamous Epithelial Cell Urine None Seen /hpf (Few); WBC Urine 0-5 /hpf (0-3)
[2024-01-22 06:10] VITALS: BP 123/88; PULSE 71; RESP 14; TEMP 37.1; O2SAT 100
== END 2024-01-22 06:11 | disposition home or self-care (01) ==
PROVIDERS: Emergency Provider Emergency Medicine
DX: R42 Dizziness and giddiness (principal); Z20.822 Contact with and (suspected) exposure to COVID-19; I25.10 Atherosclerotic heart disease of native coronary artery without angina pectoris; I10 Essential (primary) hypertension; E78.5 Hyperlipidemia, unspecified; R73.03 Prediabetes; K21.9 Gastro-esophageal reflux disease without esophagitis; M10.9 Gout, unspecified; G47.33 Obstructive sleep apnea (adult) (pediatric); Z95.5 Presence of coronary angioplasty implant and graft; Z79.82 Long term (current) use of aspirin; Z79.899 Other long term (current) drug therapy; R94.31 Abnormal electrocardiogram [ECG] [EKG]; I51.7 Cardiomegaly
CPT/HCPCS: 36415; 70450; 71045; 80053; 81001; 83605; 83690; 83735; 84484; 85025; 87637; 93005; 96361; 96374; 99284; A9270; J0780; J7030

== ENCOUNTER 2024-07-02 20:19 | Emergency (ER) | payer MEDICARE, SELFPAY ==
--- NOTE | ~2024-07-02 | XR_ITS ---
EXAMINATION: XR chest 2V Exam Date/Time: 07/02/2024 20:45 FEEDLOT MANAGER HISTORY: chest pain Comparison: 01/22/2024,. RESULT: Lines, tubes, and devices: None. Lungs and pleura: Streaky bibasilar scar/atelectasis. Mild right lateral costophrenic angle blunting presumably due to chronic pleural scarring given the lack of effusion in the lateral view. Cardiomediastinal silhouette: Stable. Other: No acute osseous or upper abdominal finding. IMPRESSION: No acute cardiopulmonary process. Reviewed, dictated and finalized at location K. LOT MANAGER
--- OUTSIDE RECORDS SUMMARY | 2024-07-02 20:21 | XMS_ITS | Clinical Summary ---
Author Organization [facility] [address] [place] [address] Care Team Providers Care Personnel Supervisor Name Role Phone Rani Verdin Primary Care Provider [phone] Allergies Active Allergy Reactions Criticality Noted Date Comments Morphine Vomiting Low Opioids - Morphine Analogues Vomiting Low Medications metoprolol (LOPRESSOR) 100 mg tablet take 1 tablet by oral route 2 times every day with meals 0 0 03/26/20 15 Active omeprazole (PriLOSEC) 20 mg capsule take 1 capsule by oral route every day before a meal 0 0 03/26/20 15 Active Additional Information Patient taking differently:20 mgoral Daily PRN, Reported on 03/18/2024 losartan (COZAAR) 50 mg tablet take 1 tablet by oral route 2 times every day 0 0 03/26/20 15 Active Additional Information Patient taking differently:50 mgDaily, Reported on 03/18/2024 allopurinol (ZYLOPRIM) 300 mg tablet take 1 tablet by oral route every day 0 0 03/26/20 15 Active aspirin 81 mg tablet take 2 tablet by oral route every day 0 0 03/26/20 15 Active fluticasone propionate (FLONASE) 50 mcg/actuation nasal spray Administer 2 sprays into each nostril 2 (two) times a day 06/20/19 19 Active bhfjmatt-rln-feggsdk gluconate (CENTRUM) 0.6 mg iron/mL liquid Active fish oil-dha-epa 1,200-144-216 mg capsule Take by mouth Active ascorbic acid (VITAMIN C) 500 mg tablet,chewable Take 1 tablet/chew tab (500 mg total) by mouth daily Active ProAir RespiClick 90 mcg/actuation inhaler TAKE 2 PUFFS BY MOUTH EVERY 6 HOURS NEEDED FOR WHEEZE 1 each 3 06/28/19 22 Active donepeziL (ARICEPT) 5 mg tablet donepezil 5 mg tablet TAKE 1 TABLET BY MOUTH NIGHTLY AT BEDTIME. 10/01/19 22 Active docosahexaenoic acid-epa 120-180 mg capsule Take 1,000 mg by mouth daily Active meclizine (ANTIVERT) 12.5 mg tablet TAKE 1 TABLET BY MOUTH THREE TIMES A DAY FOR 30 DAYS 06/02/19 23 Active nitroglycerin (NITROSTAT) 0.4 mg SL tabletIndications:ac darlyn episode of anginal pain Place 1 tablet (0.4 mg total) under the tongue every 5 (five) minutes as needed for chest pain May repeat twice, and if pain isn't gone, take 3rd dose and call ambulance. 25 tablet 3 03/20/20 23 Active clopidogreL (PLAVIX) 75 mg tabletIndications:Pr esence of stent in coronary artery Take 1 tablet (75 mg total) by mouth daily 90 tablet 3 07/05/19 24 Active ranolazine ER (RANEXA) 500 mg 12 hr tabletIndications:Co ronary arteriosclerosis in [place] artery,Atypical chest pain Take 1 tablet (500 mg total) by mouth 2 (two) times a day 180 tablet 3 07/05/19 24 025 Active rosuvastatin (CRESTOR) 40 mg tabletIndications:Hy perlipidemia LDL goal <70 Take 1 tablet (40 mg total) by mouth daily 90 tablet 3 07/05/19 24 Active isosorbide mononitrate ER (IMDUR) 60 mg 24 hr tablet TAKE 1 TABLET BY MOUTH EVERY DAY 30 tablet 11 11/07/19 24 Active benzonatate (TESSALON) 100 mg capsule 12/06/19 24 Active ergocalciferol (VITAMIN D) 50,000 unit capsule TAKE 1 CAPSULE BY MOUTH ONE TIME PER WEEK DIRECTED Active mometasone-formotero l (Dulera) 100-5 mcg/actuation inhaler INHALE 2 PUFFS BY MOUTH 2 TIMES A DAY RINSE MOUTH WITH WATER AFTER USE. DO NOT SWALLOW 13 each 5 01/03/20 24 Active montelukast (SINGULAIR) 10 mg tablet TAKE 1 TABLET BY MOUTH EVERY DAY 30 tablet 5 01/03/20 24 Active clobetasoL (TEMOVATE) 0.05 % cream APPLY THIN COAT TO AFFECTED AREA TWICE A DAY 12/26/19 24 Active Wegovy 0.25 mg/0.5 mL auto-injector INJECT 0.25 MG EVERY WEEK BY SUBCUTANEOUS ROUTE FOR 30 DAYS. 01/01/20 24 Active furosemide (LASIX) 20 mg tabletIndications:Bi lateral lower extremity edema TAKE 1 TABLET BY MOUTH EVERY DAY 90 tablet 1 05/08/19 25 Active Active Problems Problem Noted Date Diagnosed Date Moderate persistent asthma without complication 04/24/2023 Non-seasonal allergic rhinitis due to pollen Atypical chest pain 05/10/2022 Bilateral lower extremity edema 10/04/2018 Restrictive lung disease 07/15/2018 Nocturnal hypoxemia 07/09/2018 Chronic cough 06/20/2018 Shortness of breath 06/20/2018 Non-smoker 06/20/2018 Postnasal drip 06/20/2018 Sleep disorder 06/20/2018 Tachycardia 04/19/2017 BMI 45.0-49.9, adult 12/12/2016 Obstructive sleep apnea 08/09/2016 Overview (09/29/2016): Obstructive sleep apnea Body mass index 40+ - severely obese 08/09/2016 Overview (09/29/2016): Morbid obesity with BMI of 40.0-44.9, adult Hypersomnia 05/15/2016 Overview (08/10/2016): Hypersomnolence Musculoskeletal chest pain 03/26/2015 Overview (08/10/2016): Musculoskeletal chest pain Coronary arteriosclerosis in [place] artery 03/26 Overview (08/10/2016): Coronary artery disease involving [place] coronary artery of [place] heart without angina pectoris Essential hypertension 03/26/2015 Overview (08/10/2016): Essential hypertension Hyperlipidemia LDL goal <70 03/26/2015 Overview (08/10/2016): Hyperlipidemia LDL goal <70 Gastroesophageal reflux disease without esophagi tis 03/26/2015 Overview (08/10/2016): GERD without esophagitis Hypertension 06/03/2010 Atherosclerosis of coronary artery 06/03/2010 Resolved Problems Problem Noted Date Diagnosed Date Resolved Date Left arm pain 12/12/2016 04/24/2022 Obesity with body mass index 30 or greater 03/26/2015 04/02/2019 Overview (08/10/2016): Obesity (BMI 30-39.9) Immunizations Immunization Administration Dates Next Due Influenza, Quadrivalent, Hig h Dose, Preservative Free, Intrr 02/22/2020 Influenza, Quadrivalent, Split, Intramuscular Influenza, Trivalent, High D ose, Split, Preservative Free, Intramuscular 03/02/2019 Influenza, Trivalent, IM (MDV) 04/15/2014,2009 Pneumococcal Conjugate PCV 13 03/01/2016, 015 Td, adsorbed 07/11/2004 Tdap 10/14/2014 ZOSTER LIVE 01/21/2011 ZOSTER Recombinant 02/15/2019,12/08/2018 Surgical History Surgery Date Site/Laterality Comments CATARACT EXTRACTION, BILATERAL CORONARY ANGIOPLASTY 06/16/2020 CARDIAC CATHETERIZATION 09/04/2021 - 10/04/2021 Medical History Medical History Date Comments Hx Other Medical CAD, HTN, hyper lipidemia, GERD, depression, gout,; Comments: MAF 03/26/2015 - Dementia (HCC) Family History Medical History Relation Name Comments Heart attack Father 2 Myocardial infa rction; Cause of : Myocardial infarction Other Mother 2 iNTRACEREBRAL H EMMORRHAGE; Cause of : iNTRACEREBRAL HEMMORRHAGE Relation Name Status Comments Father 1 Father 2 Mother 1 Mother 2 Social History Tobacco Use Types Packs/Day Years Used Date Smoking Tobacco: Never Smokeless Tobacco: Never Tobacco Cessation:Counseling Given: Not Answered Alcohol Use Standard Drinks/Week Comments No 0 (1 standard drink = 0.6 oz pur e alcohol) Sex and Gender Information Value Date Recorded Sex Assigned at Not on file Legal Sex Male 11:27 PM MANAGER CHILD Gender Identity Not on file Sexual Orientation Not on file Obstetrics History Last Filed Vital Signs Vital Sign Reading Time Taken Comments Blood Pressure 126/77 03/18/2024 8:32 AM MANAGER CHILD Pulse 74 03/18/2024 8:32 AM MANAGER CHILD Temperature 35.6 C (96 F) 03/18/2024 8:32 AM MANAGER CHILD Respiratory Rate 20 03/18/2024 8:32 AM MANAGER CHILD Oxygen Saturation 96% 03/18/2024 8:32 AM MANAGER CHILD Inhaled Oxygen Concentration - - Weight 135.6 kg (299 lb) 03/18/2024 8:32 AM MANAGER CHILD Height 172.7 cm (5' 8 ) 03/18/2024 8:32 AM MANAGER CHILD Body Mass Index 45.46 03/18/2024 8:32 AM MANAGER CHILD Plan of Treatment Health Maintenance Due Date Last Done Comments Colon Cancer Screening-Colonoscopy 1950 Depression Screening 1950 Fall Risk Assessment 1950 Hepatitis C Screening 1950 Hepatitis B Screening 1968 Well Visit 65+ 10/07/2015 Pneumococcal vaccine 65+ (2 of 2 - PPSV23) 04/26/2016 03/01/2016, 10/14/2014 Influenza Vaccine (#1) 2024 , 03/02/2019, 03/01/2016, Additional history exists DTaP/Tdap/Td Vaccine (2 - Td or Tdap) 10/14/2024 10/14/2014, 07/11/2004 Zoster Vaccine Completed 02/15/2019, 08/2018, 01/21/2011 Insurance [facility] MEDICARE SOLUTIONS MEDICARE SOLUTIONS Advance Directives For more information, please contact: [phone] Documents on File Type Date Recorded Patient Color Mixer Expl anation Power of Senior Sas Programmer 01/11/2024 4:14 PM Care Teams Personnel Supervisor Relationship Specialty Start Date End Date Rani Verdin PA [address] [address] PCP - General Physician Foundry Molder 10/24/22
--- OUTSIDE RECORDS SUMMARY | 2024-07-02 20:21 | XMS_ITS | Encounter Summary ---
Author Organization [facility] Care Team Providers Care Chromium Plater Name Role Phone Candida Francis MD Primary Care Provider + Candida Francis MD Primary Care Provider + Danyell Mendieta NP Primary Care Provider + [phone] Melissa Torres MD Primary Care Provider [phone] Rani Verdin Primary Care Provider [phone] Encounter Details Date Type Department Care Team (Latest Contact Info) Description 03/20/2016 Orders Only [facility] CLINCONV ProviderAnge MD [address] [place] [id number] Social History Tobacco Use Types Packs/Day Years Used Date Smoking Tobacco: Never Alcohol Use Standard Drinks/Week Comments No 0 (1 standard drink = 0.6 oz pur e alcohol) Sex and Gender Information Value Date Recorded Sex Assigned at Not on file Legal Sex Male 11:27 PM REEL SYSTEM OPERATOR Gender Identity Not on file Sexual Orientation Not on file documented as of this encounter Plan of Treatment Not on file documented as of this encounter Procedures Procedure Name Priority Date/Time Associated Diagnosis Comments AUDIOLOGY RECORD 03/20/2016 12:0 0 AM REEL SYSTEM OPERATOR documented in this encounter Results * AUDIOLOGY RECORD (03/20/2016 12:00 AM REEL SYSTEM OPERATOR) Narrative 03/20/2016 12:00 AM REEL SYSTEM OPERATOR Ordered by an unspecified provider. Historical Provider NURSING COMMUNICATION Fin al Result documented in this encounter Visit Diagnoses Not on filedocumented in this encounter Care Teams Chromium Plater Relationship Specialty Start Date End Date Candida Francis MD [address] [place] [address] PCP - General 08/09/16 03/16/19 Candida Francis MD [address] [place] [address] PCP - General 02/11/15 08/08/16 Danyell Mendieta NP [address] [place], [place] [address] PCP - General Nurse Practitioner 03/17/19 05/30/21 Melissa Torres MD [address] [address] PCP - General Family Medicine 05/31/21 10/23/22 Rani Verdin PA [address] [id number] PCP - General Physician Boat Cleaning Supervisor 10/24/22 documented as of this encounter
--- OUTSIDE RECORDS SUMMARY | 2024-07-02 20:21 | XMS_ITS | Clinical Summary ---
Author Organization [facility] Address [address] [place] [address] Care Team Providers Care Burlapper Name Role Phone Rani Verdin Primary Care Provider [phone] Allergies Active Allergy Reactions Criticality Noted Date Comments Morphine Vomiting,Nausea and Vomiting,Unknown Low 03/25/2013 Medications rosuvastatin 40 MG tablet Take 1 tablet (40 mg total) by mouth nightly at bedtime. 2 Active DULERA 100-5 MCG/ACT inhaler INHALE 2 PUFFS BY MOUTH 2 TIMES A DAY RINSE MOUTH WITH WATER AFTER USE. DO NOT SWALLOW. 2 Active Albuterol Sulfate (PROAIR RESPICLICK) 108 (90 Base) MCG/ACT AEROSOL POWDER, BREATH ACTIVATED ProAir RespiClick 90 mcg/actuation breath activated 2 Active PROAIR RESPICLICK 108 (90 Base) MCG/ACT AEROSOL POWDER, BREATH ACTIVATED INHALE 2 PUFFS BY MOUTH EVERY 6 HOURS NEEDED FOR WHEEZE 2 Active allopurinol 300 MG tablet Take 1 tablet (300 mg total) by mouth daily. 2 Active vitamin C 500 MG tablet daily. Active aspirin EC 81 MG tablet every 12 (twelve) hours. Active atorvastatin 80 MG tablet atorvastatin 80 mg tablet Active azithromycin 250 MG tablet azithromycin 250 mg tablet Active benzonatate 100 MG capsule Active clopidogrel 75 MG tablet clopidogrel 75 mg tablet TAKE 1 TABLET BY MOUTH EVERY DAY 2 Active vitamin D2, ergocalciferol, 57601 UNITS capsule 2 Active fluticasone propionate 50 MCG/ACT nasal spray fluticasone propionate 50 mcg/actuation nasal spray,suspension Active furosemide 20 MG tablet furosemide 20 mg tablet TAKE ONE TABLET BY MOUTH ONCE DAILY 1 Active losartan 50 MG tablet Take 1 tablet (50 mg total) by mouth 2 (two) times daily. 2 Active metoprolol tartrate 100 MG tablet Take 1 tablet (100 mg total) by mouth once. 2 Active isosorbide mononitrate ER 60 MG 24 hr tablet Take 1 tablet (60 mg total) by mouth daily. 2 Active fish oil (OMEGA-3 FATTY ACID) 1000 MG Cap capsule Take 1 capsule (1,000 mg total) by mouth daily. Active mometasone-form oterol (DULERA) 100-5 MCG/ACT inhaler Inhale 100 mcg into the lungs 2 (two) times a day. Active meclizine (ANTIVERT) 12.5 MG tablet Take 1 tablet (12.5 mg total) by mouth 3 (three) times daily as needed. Active omeprazole (PRILOSEC) 10 MG capsule Take 2 capsules (20 mg total) by mouth as needed. Takes 1 capsule three times weekly Active donepezil (ARICEPT) 5 MG TabIndications: MCI (mild cognitive impairment) take 1 tablet by mouth everyday at bedtime 30 tablet 6 4 Active WEGOVY 0.25 mg/dose injection (PEN) INJECT 0.25 MG EVERY WEEK BY SUBCUTANEOUS ROUTE FOR 30 DAYS. 4 Active memantine (NAMENDA) 5 MG tabletIndicatio ns:MCI (mild cognitive impairment) Take 1 tablet (5 mg total) by mouth 2 (two) times daily. 60 tablet 11 4 Active QUEtiapine (SEROQUEL) 25 MG tabletIndicatio ns:MCI (mild cognitive impairment) Take 1 tablet (25 mg total) by mouth nightly at bedtime. 30 tablet 11 4 Active Active Problems No known active problems Encounters Date Type Department Care Team Description 04/08/2024 MyChart Message Enc [facility] - [address], [address] [place] [address] Yunior Gomez MD medication from Last 3 Months Family History Relation Status Comments Father Mother Social History Tobacco Use Types Packs/Day Years Used Date Smoking Tobacco: Never Smokeless Tobacco: Never Tobacco Cessation:Counseling Given: No Alcohol Use Standard Drinks/Week Comments Never 0 (1 standard drink = 0.6 oz pur e alcohol) PHQ-2 Answer Date Recorded Patient Health Questionnaire-2 Score 0 12/19/2022 Sex and Gender Information Value Date Recorded Sex Assigned at Not on file Legal Sex Male 11:28 PM CDT Gender Identity Not on file Sexual Orientation Not on file Last Filed Vital Signs Vital Sign Reading Time Taken Comments Blood Pressure 134/80 03/24/2024 3:25 PM WATER RESOURCE ENGINEER Pulse 78 03/24/2024 3:25 PM WATER RESOURCE ENGINEER Temperature 35.9 C (96.7 F) 03/24/2024 3:25 PM WATER RESOURCE ENGINEER Respiratory Rate 18 06/22/2023 8:31 AM WATER RESOURCE ENGINEER Oxygen Saturation 95% 03/24/2024 3:25 PM WATER RESOURCE ENGINEER Inhaled Oxygen Concentration - - Weight 134.7 kg (297 lb) 03/24/2024 3:25 PM WATER RESOURCE ENGINEER Height 172.7 cm (5' 8 ) 03/24/2024 3:25 PM WATER RESOURCE ENGINEER Body Mass Index 45.16 03/24/2024 3:25 PM WATER RESOURCE ENGINEER Plan of Treatment Upcoming Encounters Date Type Department Care Team (Late st Contact Info) Description 09/01/2024 2:40 PM CDT Office Visit [facility] - [address], [address] [place] [address] Yunior Gomez MD [address] [place] [address] Health Maintenance Due Date Last Done Comments Colorectal Cancer Screening Colonoscopy (10 Years) 1950 Hepatitis C 1968 RSV Immunization or 60+ Years (1 - Risk 60-74 years 1-dose series) 2010 Annual Medicare Wellness Visit 10/07/2015 Pneumococcal Vaccine: 65+ Years (2 of 2 - PPSV23 or PCV20) 03/01/2017 03/01/2016, 10/14/2014 PHQ-2 (Physician [place]) 12/20/2023 12/19/2022 COVID-19 Vaccine ( season) 2024 03/04/2021, 07/22/2020, 07/01/2020 Influenza Adult (#1) 2024 03/02/2019, 03/01/2016, 04/15/2014, Additional history exists PHQ-2 (Physician [place]) 05/07/2024 12/19/2022 DTaP, Tdap and Td Vaccines (2 - Td or Tdap) 10/14/2024 10/14/2014, 07/11/2004 Zoster Vaccines Completed 02/15/2019, 08/2018, 01/21/2011 Meningococcal B Vaccine Aged Out No l onger eligible based on patient's age to complete this topic Meningococcal Vaccine Aged Out No francie collins eligible based on patient's age to complete this topic RSV Immunizations Under 20 Months Aged Out No longer eligible based on patient's age to complete this topic Insurance [facility] MEDICARE Care Teams Burlapper Relationship Specialty Start Date End Date Rani Verdin PA [address] [place] [address] PCP - General PHYSICIAN TEACHER INDUSTRIAL ARTS 07/05/21
--- OUTSIDE RECORDS SUMMARY | 2024-07-02 20:21 | XMS_ITS | Referral Summary ---
Author Organization [facility] [address] Address [address] [place] [address] Care Team Providers Care Business Management Manager Name Role Phone Rani Verdin Primary Care Provider [phone] Allergies Active Allergy Reactions Criticality Noted Date [...] (two) times a day 06/20/19 19 Active nuanhdgp-rri-frtyrqo gluconate (CENTRUM) 0.6 mg iron/mL liquid Active [...] mg 12 hr tabletIndications:Co ronary arteriosclerosis in [place] artery,Atypical chest pain Take 1 tablet (500 [...] (08/10/2016): Musculoskeletal chest pain Coronary arteriosclerosis in [place] artery 03/26 Overview (08/10/2016): Coronary artery disease involving [place] coronary artery of [place] heart without angina pectoris Essential hypertension 03/26/2015 [...] 10/14/2014 ZOSTER LIVE 01/21/2011 ZOSTER Recombinant 02/15/2019,12/08/2018 Social History Tobacco Use Types Packs/Day Years Used Date Smoking Tobacco: Never Smokeless Tobacco: Never Tobacco Cessation:Counseling Given: Not Answered Alcohol Use Standard Drinks/Week Comments No 0 (1 standard drink = 0.6 oz pur e alcohol) Sex and Gender Information Value Date Recorded Sex Assigned at Not on file Legal Sex Male 11:27 PM HOMICIDE DETECTIVE Gender Identity Not on file Sexual Orientation Not on file Last Filed Vital Signs Vital Sign Reading Time Taken Comments Blood Pressure 126/77 03/18/2024 8:32 AM HOMICIDE DETECTIVE Pulse 74 03/18/2024 8:32 AM HOMICIDE DETECTIVE Temperature 35.6 C (96 F) 03/18/2024 8:32 AM HOMICIDE DETECTIVE Respiratory Rate 20 03/18/2024 8:32 AM HOMICIDE DETECTIVE Oxygen Saturation 96% 03/18/2024 8:32 AM HOMICIDE DETECTIVE Inhaled Oxygen Concentration - - Weight 135.6 kg (299 lb) 03/18/2024 8:32 AM HOMICIDE DETECTIVE Height 172.7 cm (5' 8 ) 03/18/2024 8:32 AM HOMICIDE DETECTIVE Body Mass Index 45.46 03/18/2024 8:32 AM HOMICIDE DETECTIVE Plan of Treatment Not on file Insurance [facility]IC[facility] Address: [address] [address] [place] [address] [facility] Address: [address] [address] [place] [address] Advance Directives For more information, please contact: [phone] Documents on File Type Date Recorded Patient Household Appliance Repairer Expl anation Power of Dermatology Nurse 01/11/2024 4:14 PM Care Teams Business Management Manager Relationship Specialty Start Date End Date Rani Verdin PA [address] [address] PCP - General Physician Equity Structurer 10/24/22
--- OUTSIDE RECORDS SUMMARY | 2024-07-02 20:21 | XMS_ITS | Clinical Summary ---
Author Organization [facility] Address [address] [place] [address] Phone Care Team Providers Care Picker Packer Name Role Phone Melissa Torres MD Primary Care Provider [phone] Allergies Active Allergy Reactions Criticality Noted Date Comments Morphine Nausea and Vomiting Low 03/12/2023 Medications allopurinoL (ZYLOPRIM) 300 mg tablet Take 300 mg by mouth daily. 2 Active ascorbic acid, vitamin C, (Vitamin C) 500 mg tablet Take 500 mg by mouth daily. Active aspirin (ECOTRIN EC) 81 mg Tablet, Delayed Release (E.C.) Take 81 mg by mouth every 12 hours. Takes 2 tabs Active benzonatate (TESSALON) 100 mg capsule Take 100 mg by mouth 3 times daily as needed for Cough. Active clopidogreL (PLAVIX) 75 mg Tablet Take 75 mg by mouth daily. 2 Active losartan (COZAAR) 50 mg tablet Take 50 mg by mouth 2 times daily. 2 Active donepeziL (ARICEPT) 5 mg tablet Take 5 mg by mouth daily at bedtime. 2 Active DOCOSAHEXAENOIC ACID ORAL Take 1,200 mg by mouth daily. Active fluticasone propionate (FLONASE) 50 mcg/spray [place], Suspension nasal inhaler Administer 2 Sprays in each nostril 2 times daily. Active furosemide (LASIX) 20 mg tablet Take 1 Tablet by mouth daily. 1 Active isosorbide mononitrate (IMDUR) 60 mg Extended Release 24 hour tablet Take 1 Tablet by mouth daily. 2 Active metoprolol tartrate (LOPRESSOR) 100 mg tablet Take 100 mg by mouth 2 times daily. 2 Active albuterol sulfate (ProAir RespiClick) 90 mcg/actuation metered powder inhaler Take 2 Puffs by inhalation every 6 hours as needed. 2 Active meclizine (ANTIVERT) 12.5 mg tablet Take 12.5 mg by mouth 3 times daily as needed. 3 Active montelukast (SINGULAIR) 10 mg tablet Take 1 Tablet by mouth daily. 3 Active multivits m-gkl-astoavn gluc 9 mg iron/15 mL Liquid Take 15 mL by mouth daily. Active nitroglycerin (NITROSTAT) 0.4 mg Tablet, Sublingual Place 0.4 mg under tongue every 5 minutes as needed for Chest Pain. 2 Active rosuvastatin (CRESTOR) 40 mg tablet Take 40 mg by mouth daily. 2 Active omeprazole (PriLOSEC) 10 mg Capsule, Delayed Release(E.C.) Take 20 mg by mouth every Sunday, Sunday, and Sunday. Active Active Problems Problem Noted Date Diagnosed Date Acute coronary syndrome 03/13/2023 Prolonged Q-T interval on ECG 03/13/2023 Vitamin D deficiency 03/13/2023 History of coronary artery disease 03/13/2023 Stable angina 03/13/2023 Chronic obstructive pulmonary disease 03/13/2023 Rhinitis 03/13/2023 Morbid obesity 03/13/2023 Prediabetes 03/13/2023 Hx of myocardial infarction 03/12/2023 Dementia 03/12/2023 Chest pain 05/10/2022 Restrictive lung disease 07/15/2018 Nocturnal hypoxemia 07/09/2018 Chronic cough 06/20/2018 BMI 40.0-44.9, adult 12/12/2016 Obstructive sleep apnea 08/09/2016 Overview (03/12/2023): Obstructive sleep apnea Gastroesophageal reflux disease 03/26/2015 Overview (03/12/2023): GERD without esophagitis Hypertriglyceridemia 03/26/2015 Overview (03/12/2023): Hyperlipidemia LDL goal <70 Atherosclerosis of coronary artery 06/03/2010 Overview (03/12/2023): Coronary artery disease involving [place] coronary artery of [place] heart without angina pectoris Essential hypertension 06/03/2010 Overview (03/12/2023): Essential hypertension Family History Medical History Relation Name Comments Heart Attack Father Heart Disease Father High Cholesterol Father Hypertension Father Heart Disease Mother Valvular Heart Disease Mother Relation Name Status Comments Father Mother Social History Tobacco Use Types Packs/Day Years Used Date Smoking Tobacco: Never Smokeless Tobacco: Never Tobacco Cessation:Counseling Given: Not Answered Alcohol Use Standard Drinks/Week Comments Not Currently 0 (1 standard drink = 0.6 oz pur e alcohol) Feeling Safe Answer Date Recorded Are you in a relationship wi th someone who hurts you emotionally and/or physically? No 03/12/2023 Sex and Gender Information Value Date Recorded Sex Assigned at Not on file Legal Sex Male 12:56 PM PARADI TENDER Gender Identity Not on file Sexual Orientation Not on file Last Filed Vital Signs Vital Sign Reading Time Taken Comments Blood Pressure 131/69 03/13/2023 1:00 PM PARADI TENDER Pulse 69 03/13/2023 1:00 PM PARADI TENDER Temperature 36.6 C (97.8 F) 03/13/2023 7:00 AM PARADI TENDER Respiratory Rate 18 03/13/2023 1:00 PM PARADI TENDER Oxygen Saturation 96% 03/13/2023 1:00 PM PARADI TENDER Inhaled Oxygen Concentration - - Weight 129.2 kg (284 lb 14.4 oz) 03/12/2023 5:52 PM PARADI TENDER Height 172.7 cm (5' 8 ) 03/12/2023 5:52 PM PARADI TENDER Body Mass Index 43.32 03/12/2023 5:52 PM PARADI TENDER Plan of Treatment Health Maintenance Due Date Last Done Comments COLORECTAL SCREENING 10/07/1995 Colorectal Cancer Screening 10/07/1995 FIT-DNA Q 3 years 10/07/1995 FIT/FOBT Q 1 year 10/07/1995 Flex Sig/CT Colonography Q 5 years 10/07/1995 RSV VACCINE (60+ or ) (1 - Risk 60-74 years 1-dose series) 2010 PNEUMOCOCCAL VACCINE 65+ YEA RS (2 of 2 - PPSV23) 04/26/2016 03/01/2016, 10/14/2014 INFLUENZA VACCINE (#1) 2023 , 02/10/2021, 02/22/2020, Additional history exists COVID-19 Vaccine ( - 2023-2 5 season) 2024 03/04/2021, 07/22/2020, 07/01/2020 DTAP/TDAP/TD VACCINES (2 - T d or Tdap) 10/14/2024 10/14/2014 ZOSTER VACCINE Completed 02/15/2019, 08/2018, 01/21/2011 Insurance RX [employer] RX Member Subscriber Plan / Payer (Ef fective 2021-Present) Name:Pierre Blanco Relation to Subscriber:Self Name:Pierre Blanco Payer ID:Not on file Group ID:[id number] Type:RX Medicare Part D Address: [place] Advance Directives For more information, please contact: [phone] * Full Code (Latest Code Status on File) Date Activated Date Inactivated Comments 03/12/2023 6:52 PM 03/13/2023 5:49 PM Care Teams Picker Packer Relationship Specialty Start Date End Date Melissa Torres MD [address] [address] PCP - General Family Practice 03/12/23
[2024-07-02 20:30] VITALS: BP 154/78; PULSE 82; RESP 18; TEMP 36.4; O2SAT 96
[2024-07-02 23:52] VITALS: BP 180/103; PULSE 79; RESP 20; O2SAT 97
[2024-07-03 02:15] VITALS: BP 126/66; RESP 15; O2SAT 97
--- OUTSIDE RECORDS SUMMARY | 2024-07-03 02:27 | XMS_ITS | Encounter Summary ---
Author Organization [facility] Care Team Providers Care Keg Varnisher Name Role Phone Candida Francis MD Primary Care Provider + Candida Francis MD Primary Care Provider + Danyell Mendieta NP Primary Care Provider + [phone] Melissa Torres MD Primary Care Provider [phone] Rani Verdin Primary Care Provider [phone] Encounter Details Date Type Department Care Team (Latest Contact Info) Description 03/20/2016 Orders Only [facility]INCON[facility] ProviderAnge MD [address] [place] [id number] Social History Tobacco Use Types Packs/Day Years Used Date Smoking Tobacco: Never Alcohol Use Standard Drinks/Week Comments No 0 (1 standard drink = 0.6 oz pur e alcohol) Sex and Gender Information Value Date Recorded Sex Assigned at Not on file Legal Sex Male 11:27 PM WASH OPERATOR Gender Identity Not on file Sexual Orientation Not on file documented as of this encounter Plan of Treatment Not on file documented as of this encounter Procedures Procedure Name Priority Date/Time Associated Diagnosis Comments AUDIOLOGY RECORD 03/20/2016 12:0 0 AM WASH OPERATOR documented in this encounter Results * AUDIOLOGY RECORD (03/20/2016 12:00 AM WASH OPERATOR) Narrative 03/20/2016 12:00 AM WASH OPERATOR Ordered by an unspecified provider. Historical Provider NURSING COMMUNICATION Fin al Result documented in this encounter Visit Diagnoses Not on filedocumented in this encounter Care Teams Keg Varnisher Relationship Specialty Start Date End Date Candida Francis MD [address] [place] [address] PCP - General 08/09/16 03/16/19 Candida Francis MD [address] [place] [address] PCP - General 02/11/15 08/08/16 Danyell Mendieta NP [address] [place], [place] [address] PCP - General Nurse Practitioner 03/17/19 05/30/21 Melissa Torres MD [address] [address] PCP - General Family Medicine 05/31/21 10/23/22 Rani Verdin PA [address] [id number] PCP - General Physician Road Mender 10/24/22 documented as of this encounter
--- OUTSIDE RECORDS SUMMARY | 2024-07-03 02:27 | XMS_ITS | Clinical Summary ---
Author Organization [facility] Address [address] [place] [address] Phone Care Team Providers Care Card Fixer Name Role Phone Melissa Torres MD Primary Care Provider [phone] Allergies Active Allergy Reactions Criticality Noted Date [...] daily. Active fluticasone propionate (FLONASE) 50 mcg/spray [place], Suspension nasal inhaler Administer 2 Sprays in [...] Tablet by mouth daily. 3 Active multivits m-oit-kcbffzw gluc 9 mg iron/15 mL Liquid Take [...] 06/03/2010 Overview (03/12/2023): Coronary artery disease involving [place] coronary artery of [place] heart without angina pectoris Essential hypertension 06/03/2010 [...] on file Legal Sex Male 12:56 PM BLOWING WEASAND Gender Identity Not on file Sexual Orientation Not on file Last Filed Vital Signs Vital Sign Reading Time Taken Comments Blood Pressure 131/69 03/13/2023 1:00 PM BLOWING WEASAND Pulse 69 03/13/2023 1:00 PM BLOWING WEASAND Temperature 36.6 C (97.8 F) 03/13/2023 7:00 AM BLOWING WEASAND Respiratory Rate 18 03/13/2023 1:00 PM BLOWING WEASAND Oxygen Saturation 96% 03/13/2023 1:00 PM BLOWING WEASAND Inhaled Oxygen Concentration - - Weight 129.2 kg (284 lb 14.4 oz) 03/12/2023 5:52 PM BLOWING WEASAND Height 172.7 cm (5' 8 ) 03/12/2023 5:52 PM BLOWING WEASAND Body Mass Index 43.32 03/12/2023 5:52 PM BLOWING WEASAND Plan of Treatment Health Maintenance Due Date [...] Advance Directives For more information, please contact: [phone] * Full Code (Latest Code Status on File) Date Activated Date Inactivated Comments 03/12/2023 6:52 PM 03/13/2023 5:49 PM Care Teams Card Fixer Relationship Specialty Start Date End Date Melissa Torres MD [address] [address] PCP - General Family Practice 03/12/23
--- OUTSIDE RECORDS SUMMARY | 2024-07-03 02:27 | XMS_ITS | Clinical Summary ---
Author Organization [facility] [address] Address [address] [place] [address] Care Team Providers Care Note Taker Name Role Phone Rani Verdin Primary Care Provider Allergies Active Allergy Reactions Criticality Noted Date [...] (two) times a day 06/20/19 19 Active ukjinctg-cso-bihxmlc gluconate (CENTRUM) 0.6 mg iron/mL liquid Active [...] mg 12 hr tabletIndications:Co ronary arteriosclerosis in [place] artery,Atypical chest pain Take 1 tablet (500 [...] (08/10/2016): Musculoskeletal chest pain Coronary arteriosclerosis in [place] artery 03/26 Overview (08/10/2016): Coronary artery disease involving [place] coronary artery of [place] heart without angina pectoris Essential hypertension 03/26/2015 [...] on file Legal Sex Male 11:27 PM BRAKE REPAIRER RAILROAD Gender Identity Not on file Sexual Orientation Not on file Obstetrics History Last Filed Vital Signs Vital Sign Reading Time Taken Comments Blood Pressure 126/77 03/18/2024 8:32 AM BRAKE REPAIRER RAILROAD Pulse 74 03/18/2024 8:32 AM BRAKE REPAIRER RAILROAD Temperature 35.6 C (96 F) 03/18/2024 8:32 AM BRAKE REPAIRER RAILROAD Respiratory Rate 20 03/18/2024 8:32 AM BRAKE REPAIRER RAILROAD Oxygen Saturation 96% 03/18/2024 8:32 AM BRAKE REPAIRER RAILROAD Inhaled Oxygen Concentration - - Weight 135.6 kg (299 lb) 03/18/2024 8:32 AM BRAKE REPAIRER RAILROAD Height 172.7 cm (5' 8 ) 03/18/2024 8:32 AM BRAKE REPAIRER RAILROAD Body Mass Index 45.46 03/18/2024 8:32 AM BRAKE REPAIRER RAILROAD Plan of Treatment Health Maintenance Due Date [...] Zoster Vaccine Completed 02/15/2019, 08/2018, 01/21/2011 Insurance [facility] [place] [address] MEDICARE [employer]UTIONS MEDICARE SOL[employer]IONS Advance Directives For more information, please contact: [phone] Documents on File Type Date Recorded Patient Gasser Machine Operator Expl anation Power of Mass Communications Professor 01/11/2024 4:14 PM Care Teams Note Taker Relationship Specialty Start Date End Date Rani Verdin PA [address] [address] PCP - General Physician Certified Alcohol Drug Counselor 10/24/22
--- OUTSIDE RECORDS SUMMARY | 2024-07-03 02:27 | XMS_ITS | Clinical Summary ---
Author Organization [facility] Address [facility] [place] [address] Care Team Providers Care Compensation And Benefits Administrator Name Role Phone Rani Verdin Primary Care Provider [phone] Allergies Active Allergy Reactions Criticality Noted Date [...] EVERY DAY 2 Active vitamin D2, ergocalciferol, 16264 UNITS capsule 2 Active fluticasone propionate 50 [...] Care Team Description 04/08/2024 MyChart Message Enc [facility] Mult[facility] - [address], [address] [place] [address] Yunior Gomez MD medication from [...] Comments Blood Pressure 134/80 03/24/2024 3:25 PM IV TECHNICIAN Pulse 78 03/24/2024 3:25 PM IV TECHNICIAN Temperature 35.9 C (96.7 F) 03/24/2024 3:25 PM IV TECHNICIAN Respiratory Rate 18 06/22/2023 8:31 AM IV TECHNICIAN Oxygen Saturation 95% 03/24/2024 3:25 PM IV TECHNICIAN Inhaled Oxygen Concentration - - Weight 134.7 kg (297 lb) 03/24/2024 3:25 PM IV TECHNICIAN Height 172.7 cm (5' 8 ) 03/24/2024 3:25 PM IV TECHNICIAN Body Mass Index 45.16 03/24/2024 3:25 PM IV TECHNICIAN Plan of Treatment Upcoming Encounters Date Type Department Care Team (Late st Contact Info) Description 09/01/2024 2:40 PM CDT Office Visit [facility] - [address], [address] [place] [address] Yunior Gomez MD [address] [place] [address] Health Maintenance Due Date Last Done Comments Colorectal Cancer Screening Colonoscopy (10 Years) 1950 Hepatitis C 1968 RSV Immunization or 60+ Years (1 - Risk 60-74 years 1-dose series) 2010 Annual Medicare Wellness Visit 10/07/2015 Pneumococcal Vaccine: 65+ Years (2 of 2 - PPSV23 or PCV20) 03/01/2017 03/01/2016, 10/14/2014 PHQ-2 (Physician [place]) 12/20/2023 12/19/2022 COVID-19 Vaccine ( season) 2024 03/04/2021, 07/22/2020, 07/01/2020 Influenza Adult (#1) 2024 03/02/2019, 03/01/2016, 04/15/2014, Additional history exists PHQ-2 (Physician [place]) 05/07/2024 12/19/2022 DTaP, Tdap and Td Vaccines [...] age to complete this topic Insurance [facility] MEDICARE Care Teams Compensation And Benefits Administrator Relationship Specialty Start Date End Date Rani Verdin PA [address] [place] [address] PCP - General PHYSICIAN BRAND PLANNER 07/05/21
--- OUTSIDE RECORDS SUMMARY | 2024-07-03 02:27 | XMS_ITS | Referral Summary ---
Author Organization [facility] [address] Address [address] [place] [address] Care Team Providers Care Numerical Control Programmer Name Role Phone Rani Verdin Primary Care Provider [phone] Allergies Active Allergy Reactions Criticality Noted Date [...] (two) times a day 06/20/19 19 Active lpwxbwnj-gpn-xtiehzy gluconate (CENTRUM) 0.6 mg iron/mL liquid Active [...] mg 12 hr tabletIndications:Co ronary arteriosclerosis in redding artery,Atypical chest pain Take 1 tablet (500 [...] (08/10/2016): Musculoskeletal chest pain Coronary arteriosclerosis in redding artery 03/26 Overview (08/10/2016): Coronary artery disease involving redding coronary artery of redding heart without angina pectoris Essential hypertension 03/26/2015 [...] on file Legal Sex Male 11:27 PM WATERWAY TRAFFIC CHECKER Gender Identity Not on file Sexual Orientation Not on file Last Filed Vital Signs Vital Sign Reading Time Taken Comments Blood Pressure 126/77 03/18/2024 8:32 AM WATERWAY TRAFFIC CHECKER Pulse 74 03/18/2024 8:32 AM WATERWAY TRAFFIC CHECKER Temperature 35.6 C (96 F) 03/18/2024 8:32 AM WATERWAY TRAFFIC CHECKER Respiratory Rate 20 03/18/2024 8:32 AM WATERWAY TRAFFIC CHECKER Oxygen Saturation 96% 03/18/2024 8:32 AM WATERWAY TRAFFIC CHECKER Inhaled Oxygen Concentration - - Weight 135.6 kg (299 lb) 03/18/2024 8:32 AM WATERWAY TRAFFIC CHECKER Height 172.7 cm (5' 8 ) 03/18/2024 8:32 AM WATERWAY TRAFFIC CHECKER Body Mass Index 45.46 03/18/2024 8:32 AM WATERWAY TRAFFIC CHECKER Plan of Treatment Not on file Insurance [facility] MEDICARE SOLUTIONS MEDICARE SOLUTIONS Advance Directives For more information, please contact: [phone] Documents on File Type Date Recorded Patient International Coordinator Expl anation Power of Electro Optics Engineer 01/11/2024 4:14 PM Care Teams Numerical Control Programmer Relationship Specialty Start Date End Date Rani Verdin PA [address] [address] PCP - General Physician Inside Account Executive 10/24/22
[2024-07-03 02:29] LABS: Basophils Percent Auto 0.3 % (0.2-1.2); Eosinophils Absolute Auto 0.2 K/mm3 (0-0.3); Hematocrit 45.5 % (42.0-52.0); Hemoglobin 14.8 g/dL (14.0-18.0); Immature Granulocyte Absolute 0.03 K/mm3 (0.00-0.031); Immature Granulocyte Percent A 0.4 % (0-0.5); Lymphocytes Absolute Auto 2.68 K/mm3 (0.9-3.2); Lymphocytes Percent Auto 36.8 % (18.3-44.2); Mean Corpuscular HGB Conc 32.5 g/dl (32-36); Mean Corpuscular Hemoglobin 31.6 pg (26-34); Mean Corpuscular Volume 97.2 fl (80-100); Mean Platelet Volume 9.7 fl (7.4-10.4); Monocytes Absolute Auto 0.5 K/mm3 (0.1-0.6); Monocytes Percent Auto 7.1 % (2.6-8.5); Neutrophils Absolute Auto 3.8 K/mm3 (1.3-6.7); Neutrophils Percent Auto 52.4 % (45.5-73.1); Platelet Count Result 145 k/mm3 (150-375); Red Blood Count 4.68 M/mm3 (4.6-6.20); Red Cell Distribution Width 14.5 % (11.5-14.5); White Blood Count 7.3 K/mm3 (4.5-10.0)
[2024-07-03 02:42] LABS: Alanine Aminotransferase 28 U/L (6-50); Albumin Level 4.2 g/dL (3.5-5.1); Alkaline Phosphatase 59 U/L (38-126); Anion Gap 10 mmol/L (4-12); Aspartate Amino Transferase 35 U/L (17-59); Bilirubin,Total 0.7 mg/dL (0.2-1.3); Blood Urea Nitrogen 26 mg/dL (9-20); Calcium 9.5 mg/dL (8.4-10.2); Carbon Dioxide 26 mmol/L (22-30); Chloride 104 mmol/L (98-107); Estimated Glomerular Filt Rate > 60; Glucose 102 mg/dL (65-110); Lipase 117 U/L (23-300); Potassium 4.9 mmol/L (3.4-5.0); Sodium 140 mmol/L (137-145)
[2024-07-03 02:51] LABS: Troponin I < 0.012 ng/mL (0.000-0.034)
--- NOTE | 2024-07-03 02:54 | ED.GENADULT ---
HPI - General Adult General Chief complaint: Unspecified <Leobardo Naranjo MD - Last Filed: 07/04/24 06:44> Stated complaint: high blood pressure <Leobardo Naranjo MD - Last Filed: 07/04/24 06:44> Time Seen by Provider: 07/03/24 02:03 <Leobardo Naranjo MD - Last Filed: 07/04/24 06:44> History of Present Illness HPI narrative: 73-year-old male with a past medical history including known coronary disease with 2 stents, follows with Dr. Lorenzana from Cardiology. Patient presents to the ED for left-sided chest discomfort that was sudden onset while he was doing pulses at home. Family states states history of dementia as well. He took his blood pressure and was elevated at home. Did not take his evening dose of blood pressure medications prior to arrival. Endorses chest discomfort left-sided chest that does not radiate anywhere. No nausea, vomiting, abdominal pain, back pain. He was otherwise in his normal state of health, last cardiology visit was in December. Last cardiac catheterization several years ago. Patient states his symptoms feels like the last time he was having a heart attack. <Leobardo Naranjo MD - Last Filed: 07/04/24 06:44> Related Data Home medications: Home Medications ?Medication ?Instructions ?Recorded ?Confirmed ?Last Taken ?Type albuterol sulfate 90 mcg/actuation 2 inh inhalation Q6H PRN Shortness 06/16/20 09/23/21 Unknown History breath activated powder inhaler Of Breath Or Wheezing (ProAir RespiClick) allopurinol 300 mg tablet 300 mg PO DAILY 06/16/20 09/23/21 06/16/20 History ascorbate calcium (vitamin C) 500 500 mg PO BID ##0 06/16/20 09/23/21 06/16/20 History mg tablet aspirin 81 mg tablet,delayed 81 mg PO Q12H 06/16/20 09/23/21 06/16/20 History release fluticasone propionate 50 2 spray intranasal BID PRN 06/16/20 09/23/21 Unknown History mcg/actuation nasal Congestion spray,suspension furosemide 20 mg tablet 20 mg PO DAILY 06/16/20 09/23/21 06/16/20 History metoprolol tartrate 100 mg tablet 100 mg PO Q12H 06/16/20 09/23/21 06/16/20 History montelukast 10 mg tablet 10 mg PO HS 06/16/20 09/23/21 06/15/20 History adwoyqke-isqjvcdb-vjspa acid 400 1 tablet PO DAILY 06/16/20 09/23/21 Unknown History mcg-vit K 20 mcg-lycop 300 mcg tablet (Men's Multivitamin) nitroglycerin 0.4 mg sublingual 0.4 mg sublingual Q5M PRN Chest 06/16/20 09/23/21 Unknown History tablet Pain omeprazole 20 mg tablet,delayed 20 mg PO HS 06/16/20 09/23/21 06/15/20 History release rosuvastatin 40 mg tablet 40 mg PO HS 06/16/20 09/23/21 06/15/20 History mometasone-formoterol HFA 50 mcg-5 2 inh inhalation BID 08/25/20 09/23/21 Unknown History mcg/actuation aerosol inhaler (Dulera) ergocalciferol (vitamin D2) 1,250 1,250 mcg PO WEEKLY 09/23/21 09/23/21 Unknown History mcg (50,000 unit) capsule benzonatate 100 mg capsule mg PO 01/22/24 Unknown History clobetasol 0.05 % topical cream topical 01/22/24 Unknown History donepezil 5 mg tablet mg 01/22/24 Unknown History mometasone-formoterol HFA 100 inhalation 01/22/24 Unknown History mcg-5 mcg/actuation aerosol inhaler (Dulera) <eLobardo Naranjo MD - Last Filed: 07/04/24 06:44> Allergies/adverse reactions: Allergies Allergy/AdvReac Type Severity Reaction Status Date / Time morphine Allergy Mild vomiting Verified 05/28/22 15:47 <Leobardo Naranjo MD - Last Filed: 07/04/24 06:44> Review of Systems Review of Systems: As reviewed above in HPI <Leobardo Naranjo MD - Last Filed: 07/04/24 06:44> [facility] Past Medical History Medical History: Medical History Prediabetes Gout SHELBIE (obstructive sleep apnea) GERD (gastroesophageal reflux disease) Hyperlipidemia Essential hypertension Coronary artery disease History of diagonal stent [place] [address] Riddle <Leobardo Naranjo MD - Last Filed: 07/04/24 06:44> Surgical History Surgical History: Surgical History Plantar fasciitis Hx of tonsillectomy Previous back surgery <Leobardo Naranjo MD - Last Filed: 07/04/24 06:44> Family History Family History: Family History Father Heart disease of 3rd heart attack age 56 Mother Heart disease History of valve replacement Cerebral hemorrhage Sounds like she might of had an intracranial hemorrhage, related to warfarin? 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 He lives with his , Keely Blanco, and his daughter and three grandchildren. He is a never smoker and reports no alcohol or illicit substance use. He wishes to be a modified code and would like CPR but does not want to be intubated. He has designated his , Keely Blanco, as his surrogate medical decision maker. Smoking status: Never smoker Second hand tobacco smoke exposure: No Alcohol intake: never Substance use: never Substance use type: does not use Living arrangements: with family Occupation/Education: retired Gender identity (if verbalized by the patient): Male Spiritual care concerns: No <Leobardo Naranjo MD - Last Filed: 07/04/24 06:44> Exam Narrative: GENERAL: Morbidly obese, not in any acute distress, answering questions appropriately HEAD: [Normocephalic, atraumatic.] EYES: [PERRLA and EOMI.] ENT: Nares clear, no rhinorrhea or epistaxis. Mucous membranes moist. NECK: Supple. CHEST: [Clear to auscultation. No respiratory distress.] HEART: [Regular rate and rhythm]. No murmur heard. [Normal peripheral pulses.] ABDOMEN: [Soft, nondistended], [nontender], [No rigidity or guarding] EXTREMITIES: Normal range of motion. [No edema.] SKIN: Warm, dry, no rash. NEURO: [No focal deficits]. Alert and oriented [x3.] PSYCH: [Normal mood and affect.] <Leobardo Naranjo MD - Last Filed: 07/04/24 06:44> Course Course Emergency Course: Zych 0845: Patient signed out pending 2nd troponin. Second troponin was negative. No and spoke with the patient and his did discuss the results. Patient has been chest pain-free throughout his stay in the ED for approximately 12 hours. EKG and troponins were negative. Patient is older and has history of CAD so we discussed admission versus close follow-up her building maintenance mechanic outpatient basis. Patient not want to be admitted the hospital is comfortable calling Dr. Lorenzana and arranging further evaluation. <Jonnathan Cates MD - Last Filed: 07/03/24 08:42> Vital Signs Vital signs: Vital Signs Temperature 36.4 C 07/02/24 20:30 Pulse Rate 82 07/02/24 20:30 Respiratory Rate 18 07/02/24 20:30 Blood Pressure 154/78 H 07/02/24 20:30 Pulse Oximetry 96 07/02/24 20:30 Oxygen Delivery Room Air 07/02/24 20:30 Temperature 36.6 C 07/03/24 08:54 Pulse Rate 74 07/03/24 08:54 Respiratory Rate 18 07/03/24 08:54 Blood Pressure 126/77 07/03/24 08:54 Pulse Oximetry 98 07/03/24 08:54 Oxygen Delivery Room Air 07/02/24 20:30 <Leobardo Naranjo MD - Last Filed: 07/04/24 06:44> Vital Signs Temperature 36.4 C 07/02/24 20:30 Pulse Rate 82 07/02/24 20:30 Respiratory Rate 18 07/02/24 20:30 Blood Pressure 154/78 H 07/02/24 20:30 Pulse Oximetry 96 07/02/24 20:30 Oxygen Delivery Room Air 07/02/24 20:30 Temperature 36.6 C 07/03/24 08:54 Pulse Rate 74 07/03/24 08:54 Respiratory Rate 18 07/03/24 08:54 Blood Pressure 126/77 07/03/24 08:54 Pulse Oximetry 98 07/03/24 08:54 Oxygen Delivery Room Air 07/02/24 20:30 <Jonnathan Cates MD - Last Filed: 07/03/24 08:42> Medical Decision Making MDM Narrative Medical decision making narrative: 73-year-old male with history of coronary disease with multiple stents, hypertension. He presents today with left-sided chest discomfort and pressure. States it feels like last time he had a heart attack. Follows with Dr. Beckham from Cardiology. Last cardiac catheterization was several years ago. Endorses present ongoing chest discomfort, no nausea, vomiting, abdominal pain, back pain. Vital signs show some mild hypertension with elevated blood pressure readings but not severe range. No tachycardia, fever or hypoxia. He has 2+ bilateral radial pulses and warm well-perfused extremities. Suspicion presently is for ACS, angina, less likely pneumonia or pneumothorax. Musculoskeletal chest pain is also possible but lower on the differential. Low suspicion thromboembolic event given his normal vital signs and lack of any calf signs of DVT. Will obtain multiple troponins, EKG, chest x-ray, CBC, CMP. Workup shows no leukocytosis or anemia. Normal platelet count. Coagulation studies within normal limits I electrolytes within normal limits. Normal kidney function compared to baseline. Normal glucose. Normal LFTs. Negative initial troponin. Repeat troponin pending. Negative lipase. Chest x-ray shows no acute cardiopulmonary process. EKG obtained shows sinus rhythm, no ST segment elevations, depressions or acute inversions. No significant oval change compared to prior EKG in our EMR. Repeat troponin is pending. Patient signed out to oncoming ER physician pending repeat troponin and final disposition, likely discharge home with close Cardiology follow-up given his otherwise reassuring labs and vitals with no symptoms at this time. <Leobardo Naranjo MD - Last Filed: 07/04/24 06:44> Medical Records Medical records reviewed: Yes I reviewed the external patient's medical records. <Leobardo Naranjo MD - Last Filed: 07/04/24 06:44> Vital Signs Vital Signs: Vital Signs Temperature 36.4 C 07/02/24 20:30 Pulse Rate 82 07/02/24 20:30 Respiratory Rate 18 07/02/24 20:30 Blood Pressure 154/78 H 07/02/24 20:30 Pulse Oximetry 96 07/02/24 20:30 Oxygen Delivery Room Air 07/02/24 20:30 Temperature 36.6 C 07/03/24 08:54 Pulse Rate 74 07/03/24 08:54 Respiratory Rate 18 07/03/24 08:54 Blood Pressure 126/77 07/03/24 08:54 Pulse Oximetry 98 07/03/24 08:54 Oxygen Delivery Room Air 07/02/24 20:30 <Leobardo Naranjo MD - Last Filed: 07/04/24 06:44> Vital Signs Temperature 36.4 C 07/02/24 20:30 Pulse Rate 82 07/02/24 20:30 Respiratory Rate 18 07/02/24 20:30 Blood Pressure 154/78 H 07/02/24 20:30 Pulse Oximetry 96 07/02/24 20:30 Oxygen Delivery Room Air 07/02/24 20:30 Temperature 36.6 C 07/03/24 08:54 Pulse Rate 74 07/03/24 08:54 Respiratory Rate 18 07/03/24 08:54 Blood Pressure 126/77 07/03/24 08:54 Pulse Oximetry 98 07/03/24 08:54 Oxygen Delivery Room Air 07/02/24 20:30 <Jonnathan Cates MD - Last Filed: 07/03/24 08:42> Lab Data Lab results reviewed: Yes I reviewed the patient's lab results. <Leobardo Naranjo MD - Last Filed: 07/04/24 06:44> Result diagrams: 07/03/24 02:24 07/03/24 02:24 <Leobardo Naranjo MD - Last Filed: 07/04/24 06:44> Labs: Lab Results 07/03/24 07/03/24 07/03/24 Range/Units 02:24 04:22 07:31 WBC 7.3 (4.5-10.0) K/mm3 RBC 4.68 (4.6-6.20) M/mm3 Hgb 14.8 (14.0-18.0) g/dL Hct 45.5 (42.0-52.0) % MCV 97.2 (80-100) fl MCH 31.6 (26-34) pg MCHC 32.5 (32-36) g/dl RDW 14.5 (11.5-14.5) % Plt Count 145 L (150-375) k/mm3 MPV 9.7 (7.4-10.4) fl Immature Gran % (Auto) 0.4 (0-0.5) % Neut % (Auto) 52.4 (45.5-73.1) % Lymph % (Auto) 36.8 (18.3-44.2) % [place] % (Auto) 7.1 (2.6-8.5) % Eos % (Auto) 3.0 (0-4.4) % Baso % (Auto) 0.3 (0.2-1.2) % Lymph # (Auto) 2.68 (0.9-3.2) K/mm3 [place] # (Auto) 0.5 (0.1-0.6) K/mm3 Eos # (Auto) 0.2 (0-0.3) K/mm3 Baso # (Auto) 0.0 (0.0-0.1) K/mm3 Abs Immat Gran (auto) 0.03 (0.00-0.031) K/mm3 Absolute Neuts (auto) 3.8 (1.3-6.7) K/mm3 Absolute Nucleated RBC 0.000 (0.0-0.012) K/mm3 Nucleated RBC % 0.0 (0.0-0.2) % PT 13.7 (11.1-14.7) Seconds INR 1.0 APTT 30.1 (22.3-36.8) Seconds Sodium 140 (137-145) mmol/L Potassium 4.9 (3.4-5.0) mmol/L Chloride 104 (98-107) mmol/L Carbon Dioxide 26 (22-30) mmol/L Anion Gap 10 (4-12) mmol/L BUN 26 H (9-20) mg/dL Creatinine 0.68 L (0.7-1.3) mg/dL Estim Creat Clear Calc Not Reportable Estimated GFR > 60 (59 - ) Glucose 102 (65-110) mg/dL Calcium 9.5 (8.4-10.2) mg/dL Total Bilirubin 0.7 (0.2-1.3) mg/dL AST 35 (17-59) U/L ALT 28 (6-50) U/L Alkaline Phosphatase 59 (38-126) U/L Troponin I < 0.012 < 0.012 (0.000-0.034) ng/mL Total Protein 8.0 (6.3-8.2) g/dL Albumin 4.2 (3.5-5.1) g/dL Lipase 117 (23-300) U/L <Leobardo Naranjo MD - Last Filed: 07/04/24 06:44> Lab Results 07/03/24 07/03/24 07/03/24 Range/Units 02:24 04:22 07:31 WBC 7.3 (4.5-10.0) K/mm3 RBC 4.68 (4.6-6.20) M/mm3 Hgb 14.8 (14.0-18.0) g/dL Hct 45.5 (42.0-52.0) % MCV 97.2 (80-100) fl MCH 31.6 (26-34) pg MCHC 32.5 (32-36) g/dl RDW 14.5 (11.5-14.5) % Plt Count 145 L (150-375) k/mm3 MPV 9.7 (7.4-10.4) fl Immature Gran % (Auto) 0.4 (0-0.5) % Neut % (Auto) 52.4 (45.5-73.1) % Lymph % (Auto) 36.8 (18.3-44.2) % [place] % (Auto) 7.1 (2.6-8.5) % Eos % (Auto) 3.0 (0-4.4) % Baso % (Auto) 0.3 (0.2-1.2) % Lymph # (Auto) 2.68 (0.9-3.2) K/mm3 [place] # (Auto) 0.5 (0.1-0.6) K/mm3 Eos # (Auto) 0.2 (0-0.3) K/mm3 Baso # (Auto) 0.0 (0.0-0.1) K/mm3 Abs Immat Gran (auto) 0.03 (0.00-0.031) K/mm3 Absolute Neuts (auto) 3.8 (1.3-6.7) K/mm3 Absolute Nucleated RBC 0.000 (0.0-0.012) K/mm3 Nucleated RBC % 0.0 (0.0-0.2) % PT 13.7 (11.1-14.7) Seconds INR 1.0 APTT 30.1 (22.3-36.8) Seconds Sodium 140 (137-145) mmol/L Potassium 4.9 (3.4-5.0) mmol/L Chloride 104 (98-107) mmol/L Carbon Dioxide 26 (22-30) mmol/L Anion Gap 10 (4-12) mmol/L BUN 26 H (9-20) mg/dL Creatinine 0.68 L (0.7-1.3) mg/dL Estim Creat Clear Calc Not Reportable Estimated GFR > 60 (59 - ) Glucose 102 (65-110) mg/dL Calcium 9.5 (8.4-10.2) mg/dL Total Bilirubin 0.7 (0.2-1.3) mg/dL AST 35 (17-59) U/L ALT 28 (6-50) U/L Alkaline Phosphatase 59 (38-126) U/L Troponin I < 0.012 < 0.012 (0.000-0.034) ng/mL Total Protein 8.0 (6.3-8.2) g/dL Albumin 4.2 (3.5-5.1) g/dL Lipase 117 (23-300) U/L <Jonnathan Cates MD - Last Filed: 07/03/24 08:42> Imaging Data Attestation: I personally reviewed and interpreted this imaging study as follows: <Leobardo Naranjo MD - Last Filed: 07/04/24 06:44> My impression: Impressions Chest X-Ray 07/02/24 20:55 IMPRESSION: No acute cardiopulmonary process. <Leobardo Naranjo MD - Last Filed: 07/04/24 06:44> ECG Data EKG #1: Attestation: I personally reviewed and interpreted this ECG as follows: <Leobardo Naranjo MD - Last Filed: 07/04/24 06:44> ECG completion date: 07/03/24 <Leobardo Naranjo MD - Last Filed: 07/04/24 06:44> ECG completion time: 02:09 <Leobardo Naranjo MD - Last Filed: 07/04/24 06:44> Prior ECG tracings: available for review <Leobardo Naranjo MD - Last Filed: 07/04/24 06:44> Interpretation: No ST segment elevations, depressions or inversions. No ectopy. Regular rate, rhythm, axis. QTC 446, QRS 77, DC interval 177. No signs of acute ischemic event. No interval change compared to prior EKG. <Leobardo Naranjo MD - Last Filed: 07/04/24 06:44> Discharge Plan Discharge Clinical Impression: Chest pain Qualifiers: Chest pain type: unspecified Qualified Code(s): R07.9 - Chest pain, unspecified <Leobardo Naranjo MD - Last Filed: 07/04/24 06:44> Patient Disposition: Home, Self-Care <Leobardo Naranjo MD - Last Filed: 07/04/24 06:44> Condition: Stable <Leobardo Naranjo MD - Last Filed: 07/04/24 06:44> Instructions: Antibiotic Form <Leobardo Naranjo MD - Last Filed: 07/04/24 06:44> Additional Instructions: Your cardiac workup was very reassuring, your cardiac enzymes were undetectable x2. EKG without any acute findings. Please call your building maintenance mechanic in the morning for close outpatient follow-up in outpatient evaluation and further risk stratification. If you have any recurrence, worsening or new symptoms please return to the ER for evaluation at that time. <Leobardo Naranjo MD - Last Filed: 07/04/24 06:44> Patient Language: Ukrainian <Leobardo Naranjo MD - Last Filed: 07/04/24 06:44> Prescriptions: No Action Dulera 50-5 mcg/actuation Hfa Aerosol Inhaler 2 inh INHALATION BID meclizine 12.5 mg tablet 12.5 mg PO TID PRN (Reason: dizziness) Qty: 14 0RF ascorbate calcium (vitamin C) 500 mg Tablet 500 mg PO BID Qty: 0 fluticasone propionate 50 mcg/actuation [place],Suspension 2 spray INTRANASAL BID PRN (Reason: Congestion) Men's Multivitamin 400-20-300 mcg Tablet 1 tablet PO DAILY metoprolol tartrate 100 mg tablet 100 mg PO Q12H aspirin 81 mg Tablet,Delayed Release (Dr/Ec) 81 mg PO Q12H nitroglycerin 0.4 mg tablet, sublingual 0.4 mg sublingual Q5M PRN (Reason: Chest Pain) Rx Instructions: may repeat x2 montelukast 10 mg tablet 10 mg PO HS allopurinol 300 mg tablet 300 mg PO DAILY furosemide 20 mg tablet 20 mg PO DAILY rosuvastatin 40 mg tablet 40 mg PO HS omeprazole 20 mg Tablet,Delayed Release (Dr/Ec) 20 mg PO HS ProAir RespiClick 90 mcg/actuation aerosol powdr breath activated 2 inh inhalation Q6H PRN (Reason: Shortness Of Breath Or Wheezing) clopidogrel 75 mg Tablet 75 mg PO DAILY 30 Days Qty: 30 0RF losartan 50 mg tablet 50 mg PO DAILY Qty: 0 0RF ergocalciferol (vitamin D2) 1,250 mcg (50,000 unit) capsule 1,250 mcg PO WEEKLY Rx Instructions: sundays isosorbide mononitrate 60 mg Tablet Extended Release 24 Hr 60 mg PO QAM 30 Days Qty: 30 0RF donepezil 5 mg tablet clobetasol 0.05 % cream TOPICAL benzonatate 100 mg capsule PO Dulera 100-5 mcg/actuation HFA aerosol inhaler INHALATION meclizine 25 mg tablet 25 mg PO TID PRN (Reason: dizziness) Qty: 30 0RF <Leobardo Naranjo MD - Last Filed: 07/04/24 06:44> Follow-up/Referrals: Shorty Lorenzana MD [Physician] - 3 Days (Chest pain, recent ED visit) Lambert,MITCH Rodriguez [Primary Care Provider] - <Leobardo Naranjo MD - Last Filed: 07/04/24 06:44>
[2024-07-03 04:29] VITALS: BP 126/45; PULSE 63; RESP 19; O2SAT 100
[2024-07-03 04:39] LABS: Prothrombin Time 13.7 Seconds (11.1-14.7)
[2024-07-03 04:40] LABS: Partial Thromboplastin Time 30.1 Seconds (22.3-36.8)
[2024-07-03 06:02] VITALS: BP 136/76; PULSE 78; RESP 19; O2SAT 96
[2024-07-03 08:06] LABS: Troponin I < 0.012 ng/mL (0.000-0.034)
--- NOTE | 2024-07-03 08:53 | PC.NURSE ---
0830: Assumed care of pt. Pt denies any c/o chest pain, resting with reg resp. Awaiting dispo
[2024-07-03 08:54] VITALS: BP 126/77; PULSE 74; RESP 18; TEMP 36.6; O2SAT 98
== END 2024-07-03 08:54 | disposition home or self-care (01) ==
PROVIDERS: Emergency Provider Student in an Organized Health Care Education/Training Program; PCP Physician Assistant
DX: R07.9 Chest pain, unspecified (principal); Z79.82 Long term (current) use of aspirin; G47.33 Obstructive sleep apnea (adult) (pediatric); I10 Essential (primary) hypertension; E78.5 Hyperlipidemia, unspecified; I25.10 Atherosclerotic heart disease of native coronary artery without angina pectoris
CPT/HCPCS: 36415; 71046; 80053; 83690; 84484; 85025; 85610; 85730; 93005; 99284